=== PATIENT | male | born 1960 | race Caucasian/White ===

== ENCOUNTER 2016-03-03 10:50 | Inpatient (IN) | payer OTHER ==
--- NOTE | 2016-03-03 11:09 | ED ---
General Adult HPI - General Source: patient, family, RN notes reviewed Mode of arrival: ambulatory Limitations: no limitations <Jorge Dunlap - Last Filed: 03/03/16 13:36> <Pete Márquez - Last Filed: 03/03/16 14:01> - General Chief complaint: Upper Respiratory Infection Stated complaint: POSS PNEUMONIA Time Seen by Provider: 03/03/16 10:58 - History of Present Illness Initial comments: Patient a 55-year-old male with a past mental history, who presents emergency room today with a chief complaint of increased shortness of breath over the last month. He does admit that he had a upper respiratory infection around [facility]. States that he seemed to get over this infection but states that since she's noticed that he still having some episodes of shortness of breath. He states it's worse when he is up moving around. Patient states she still feels somewhat congested. He denies any other complaints or symptoms. Patient denies any recent fever, chills, chest pain, back pain, abdominal pain, nausea or vomiting, numbness or tingling, dysuria or hematuria, constipation or diarrhea, headaches or visual changes, or any other complaints. (Jorge Dunlap) - Related Data Home Medications Medication Instructions Recorded Confirmed Clotrimazole/Betameth Cream 1 applic TOPICAL DAILY PRN 03/03/16 03/03/16 [Lotrisone] Naproxen Sodium [Aleve] 220 mg PO BID PRN 03/03/16 03/03/16 Allergies Allergy/AdvReac Type Severity Reaction Status Date / Time No Known Allergies Allergy Verified 03/03/16 12:51 Review of Systems ROS Other: All systems not noted in ROS Statement are negative. <Jorge Dunlap - Last Filed: 03/03/16 13:36> ROS Other: All systems not noted in ROS Statement are negative. <Pete Márquez - Last Filed: 03/03/16 14:01> ROS Statement: Those systems with pertinent positive or pertinent negative responses have been documented in the HPI. Past Medical History History of Any Multi-Drug Resistant Organisms: None Reported Past Surgical History: No Surgical Hx Reported Past Psychological History: No Psychological Hx Reported Smoking Status: Never smoker Past Alcohol Use History: None Reported Past Drug Use History: None Reported <Jorge Dunlap - Last Filed: 03/03/16 13:36> General Exam Limitations: no limitations <DunlapJorge - Last Filed: 03/03/16 13:36> <Pete Márquez - Last Filed: 03/03/16 14:01> - General Exam Comments Initial Comments: General: The patient is awake and alert, in no distress, and does not appear acutely ill. Eye: Pupils are equal, round and reactive to light, extra-ocular movements are intact. No nystagmus. There is normal conjunctiva bilaterally. No signs of icterus. Ears, nose, mouth and throat: There are moist mucous membranes and no oral lesions. Neck: The neck is supple, there is no tenderness or JVD. Cardiovascular: Tachycardic rate. No murmur, rub or gallop is appreciated. Respiratory: Lungs are clear to auscultation, respirations are non-labored, breath sounds are equal. No wheezes, stridor, rales, or rhonchi. Musculoskeletal: Normal ROM, no tenderness. Strength 5/5. Sensation intact. Pulses equal bilaterally 2+. Neurological: A&O x 3. CN II-XII intact, There are no obvious motor or sensory deficits. Coordination appears grossly intact. Speech is normal. Skin: Skin is warm and dry and no rashes or lesions are noted. Psychiatric: Cooperative, appropriate mood & affect, normal judgment. (Jorge Dunlap) Course <Jorge Dunlap - Last Filed: 03/03/16 13:36> <WilliPete - Last Filed: 03/03/16 14:01> Vital Signs 03/03/16 03/03/16 03/03/16 10:53 11:15 11:56 Temperature 97.8 F Pulse Rate 63 141 H Pulse Rate [ 170 H Apical] Respiratory 18 18 Rate Blood Pressure 146/98 124/99 O2 Sat by Pulse 98 100 Oximetry 03/03/16 12:35 Temperature Pulse Rate 108 H Pulse Rate [ Apical] Respiratory 16 Rate Blood Pressure 124/99 O2 Sat by Pulse 98 Oximetry - Reevaluation(s) Reevaluation #1: 03/03/16 11:35 I did do a [id number] examination the patient did discuss the findings with him and his family. Patient is having some dyspnea since [place]. He did have some exertional dyspnea. His heart sounds currently are irregularly irregular and tachycardic. Abdomen is breath sounds. He's got +1 pedal edema. The presentation is consistent with atrial fibrillation. (Pete Márquez) Reevaluation #2: 03/03/16 13:59 I did reevaluate patient several occasions he is responding to therapy his heart rate has improved I did a long discussion with him and his family regarding the findings patient be admitted for inpatient evaluation with cardiology consultation. I did discuss the case with Dr. Escalante. (Pete Márquez) EKG Findings - EKG Results: EKG: interpreted by ERMD (Tachycardia rate was 166 it appears be atrial fibrillation with a rapid ventricular response QRS of 82 QT/QTC at 250/4:15 poor R-wave progression.) <Pete Márquez - Last Filed: 03/03/16 14:01> Medical Decision Making - Lab Data Result diagrams: 03/03/16 11:15 03/03/16 11:15 <Jorge Dunlap - Last Filed: 03/03/16 13:36> - Lab Data Result diagrams: 03/03/16 11:15 03/03/16 11:15 <Pete Márquez - Last Filed: 03/03/16 14:01> - Medical Decision Making Case was discussed and seen by attending physician Dr. Márquez. Patient started on heparin here in the emergency room. Patient EKG reveals A. fib with RVR. Started on Cardizem. Patient's d-dimer elevated. Mild elevation of troponin. Patient will have VQ scan. Patient will be admitted. Case was discussed by Dr. Márquez with admitting physician Dr. Escalante. Cardiology consult. (Jorge Dunlap) - Lab Data Lab Results 03/03/16 03/03/16 03/03/16 Range/Units 11:15 11:15 11:15 WBC 22.8 H (3.8-10.6) k/uL RBC 4.98 (4.30-5.90) m/uL Hgb 15.4 (13.0-17.5) gm/dL Hct 47.9 (39.0-53.0) % MCV 96.1 (80.0-100.0) fL MCH 30.9 (25.0-35.0) pg MCHC 32.1 (31.0-37.0) g/dL RDW 15.9 H (11.5-15.5) % Plt Count 917 H* (150-450) k/uL Neutrophils % (Manual) 89.0 % Band Neutrophils % 1.0 % Lymphocytes % (Manual) 4.0 % Monocytes % (Manual) 6.0 % Neutrophils # (Manual) 20.5 H (1.3-7.7) k/uL Lymphocytes # (Manual) 0.9 L (1.0-4.8) k/uL Monocytes # (Manual) 1.4 H (0-1.0) k/uL Nucleated RBCs 0 (0-0) /100 WBC Large Platelets Present Polychromasia Present Poikilocytosis (manual Present PT (9.0-12.0) sec INR (<1.1) APTT (22.0-30.0) sec D-Dimer (<0.60) mg/L FEU Sodium 138 (137-145) mmol/L Potassium 5.6 H (3.5-5.1) mmol/L Chloride 101 (98-107) mmol/L Carbon Dioxide 24 (22-30) mmol/L Anion Gap 13 mmol/L BUN 21 H (9-20) mg/dL Creatinine 1.37 H (0.66-1.25) mg/dL Est GFR (MDRD) Af Amer >60 (>60 ml/min/1.73 sqM) Est GFR (MDRD) Non-Af 54 (>60 ml/min/1.73 sqM) Glucose 120 H (74-99) mg/dL Calcium 10.0 (8.4-10.2) mg/dL Total Bilirubin 2.9 H (0.2-1.3) mg/dL AST 47 (17-59) U/L ALT 57 (21-72) U/L Alkaline Phosphatase 218 H (38-126) U/L Total Creatine Kinase 94 (55-170) U/L CK-MB (CK-2) 2.9 H* (0.0-2.4) ng/mL CK-MB (CK-2) Rel Index 3.1 Troponin I 0.069 H* (0.000-0.034) ng/mL Total Protein 7.0 (6.3-8.2) g/dL Albumin 4.3 (3.5-5.0) g/dL 03/03/16 Range/Units 11:15 WBC (3.8-10.6) k/uL RBC (4.30-5.90) m/uL Hgb (13.0-17.5) gm/dL Hct (39.0-53.0) % MCV (80.0-100.0) fL MCH (25.0-35.0) pg MCHC (31.0-37.0) g/dL RDW (11.5-15.5) % Plt Count (150-450) k/uL Neutrophils % (Manual) % Band Neutrophils % % Lymphocytes % (Manual) % Monocytes % (Manual) % Neutrophils # (Manual) (1.3-7.7) k/uL Lymphocytes # (Manual) (1.0-4.8) k/uL Monocytes # (Manual) (0-1.0) k/uL Nucleated RBCs (0-0) /100 WBC Large Platelets Polychromasia Poikilocytosis (manual PT 13.4 H (9.0-12.0) sec INR 1.4 (<1.1) APTT 26.0 (22.0-30.0) sec D-Dimer 1.88 H (<0.60) mg/L FEU Sodium (137-145) mmol/L Potassium (3.5-5.1) mmol/L Chloride (98-107) mmol/L Carbon Dioxide (22-30) mmol/L Anion Gap mmol/L BUN (9-20) mg/dL Creatinine (0.66-1.25) mg/dL Est GFR (MDRD) Af Amer (>60 ml/min/1.73 sqM) Est GFR (MDRD) Non-Af (>60 ml/min/1.73 sqM) Glucose (74-99) mg/dL Calcium (8.4-10.2) mg/dL Total Bilirubin (0.2-1.3) mg/dL AST (17-59) U/L ALT (21-72) U/L Alkaline Phosphatase (38-126) U/L Total Creatine Kinase (55-170) U/L CK-MB (CK-2) (0.0-2.4) ng/mL CK-MB (CK-2) Rel Index Troponin I (0.000-0.034) ng/mL Total Protein (6.3-8.2) g/dL Albumin (3.5-5.0) g/dL Critical Care Time <Jorge Dunlap - Last Filed: 03/03/16 13:36> Critical Care Time: Yes <Pete Márquez - Last Filed: 03/03/16 14:01> Critical Care Time: 31 minutes of critical care time which included my initial evaluation with history physical examination also reevaluation the patient response to therapy. Discussion with the patient and family as well as discussion with the admitting physician. (Pete Márquez) Disposition Time of Disposition: 13:38 <Jorge Dunlap - Last Filed: 03/03/16 13:36> <Pete Márquez - Last Filed: 03/03/16 14:01> Clinical Impression: Atrial fibrillation with RVR, Elevated d-dimer, Elevated troponin, Leukocytosis , Thrombocytosis Disposition: ADMITTED IP TO THIS HOSP Condition: Stable
[2016-03-03] MEDS ORDERED: ADENOSINE 3 MG/ML 2 ML VIAL IVP STA (11:28)
[2016-03-03] MEDS ORDERED: DILTIAZEM 125 MG in SODIUM CHLORIDE 0.9% 100 ML IV ONE (11:34)
[2016-03-03] MEDS ORDERED: HEPARIN SODIUM,PORCINE 5,000 UNIT/ML 1 ML VIAL IV ONE (11:38)
[2016-03-03 11:43] LABS: CH 31.5; CHCM 33.1; HCT 47.9 % (39.0-53.0); HDW 2.99; HGB 15.4 gm/dL (13.0-17.5); MCH 30.9 pg (25.0-35.0); MCHC 32.1 g/dL (31.0-37.0); MCV 96.1 fL (80.0-100.0); Mean Platelet Volume 9.8; RBC 4.98 m/uL (4.30-5.90); RDW 15.9 % (11.5-15.5); WBC 22.8 k/uL (3.8-10.6); WBC (Perox) 24.51
[2016-03-03 11:46] LABS: ALT 57 U/L (21-72); AST 47 U/L (17-59); Alkaline Phosphatase 218 U/L (38-126); Anion Gap 13 mmol/L; Blood Urea Nitrogen 21 mg/dL (9-20); Carbon Dioxide 24 mmol/L (22-30); Chloride 101 mmol/L (98-107); Glucose 120 mg/dL (74-99); Non-African American GFR(MDRD) 54 (>60 ml/min/1.73 sqM); Potassium 5.6 mmol/L (3.5-5.1); Sodium 138 mmol/L (137-145); Total Bilirubin 2.9 mg/dL (0.2-1.3)
[2016-03-03] MEDS: HEPARIN SODIUM,PORCINE/D5W PMX 25,000 UNIT in DEXTROSE/WATER 1 500ML.BAG IV SCH (11:52)
--- NOTE | 2016-03-03 11:53 | XR ---
EXAMINATION TYPE: XR chest 2V DATE OF EXAM: 03/03/2016 11:49 AM COMPARISON: Prior chest x-ray third of January 2013 HISTORY: Cough and shortness of breath TECHNIQUE: Frontal and lateral views of the chest are obtained. FINDINGS: There are overlying cardiac leads. Cardiomediastinal silhouette shows mild prominence of t he heart size, pulmonary vascularity is mildly prominent and [place] not significantly changed. No foca l pneumonia or pneumothorax. Some blunting of the costophrenic angles is present. Interstitium is mil dly increased. IMPRESSION: Correlate for possible pulmonary venous hypertension and interstitial edema. Small pleur al effusions. Follow-up recommended.
[2016-03-03 11:57] LABS: INR 1.4 (<1.1); Prothrombin Time 13.4 sec (9.0-12.0)
[2016-03-03 12:17] LABS: Add Differential Manual Differential
[2016-03-03 12:23] LABS: Nucleated Red Blood Cells 0 /100 WBC (0-0); Total Cells Counted 100
[2016-03-03 12:24] LABS: Large Platelets Present; Polychromasia Present
[2016-03-03 12:34] LABS: Creatine Kinase MB 2.9 ng/mL (0.0-2.4)
[2016-03-03 12:35] LABS: Troponin I 0.069 ng/mL (0.000-0.034)
[2016-03-03] MEDS ORDERED: ACETAMINOPHEN TAB 325 MG TAB PO PRN (13:15)
[2016-03-03] MEDS ORDERED: HYDROcodone/APAP 5-325MG 1 EACH TAB PO PRN (13:15)
[2016-03-03] MEDS ORDERED: LORazepam 2 MG/ML SYRINGE IV PRN (13:15)
[2016-03-03] MEDS ORDERED: ONDANSETRON 4 MG/2 ML VIAL IVP PRN (13:15)
[2016-03-03] MEDS ORDERED: NALOXONE 0.4 MG/ML 1 ML VIAL IV PRN (13:15)
[2016-03-03] MEDS ORDERED: SODIUM CHLORIDE 0.9% 1,000 ML IV ONE (13:15)
[2016-03-03] MEDS ORDERED: HYDROmorphone 2 MG TAB PO PRN (13:15)
--- NOTE | 2016-03-03 15:03 | NM ---
EXAMINATION TYPE: NM pul vent and perfuse DATE OF EXAM: 03/03/2016 2:05 PM COMPARISON: Chest x-ray same date HISTORY: Shortness of breath TECHNIQUE: Utilizing inhalation of 69.7 mCi Tc 99m DTPA aerosol and intravenous injection of 5.5 mCi of Tc 99m MAA, ventilation and perfusion images are acquired post injection in multiple projections. FINDINGS: Essentially normal radiotracer distribution is noted in the lungs. Suspect minimal blunting of the po sterior costophrenic angles corresponding to pleural effusions. There is no evidence of mismatched de fects. IMPRESSION: Low probability for pulmonary embolism.
[2016-03-03] MEDS: METOPROLOL TARTRATE 25 MG TAB PO SCH ×2 (17:59→18:00)
[2016-03-03] MEDS: FUROSEMIDE 10 MG/ML 4 ML VIAL IV SCH (17:59)
--- NOTE | 2016-03-03 20:55 | HP ---
DATE OF ADMISSION: Patient is a very pleasant 55-year-old gentleman with no significant previous history. He came in with symptoms of generalized fatigue and shortness of breath. Patient was found to be in supraventricular tachycardia. Patient was given adenosine. Patient subsequently converted to atrial fibrillation with rapid ventricular rate. Patient was started Cardizem and patient was subsequently admitted. Patient did complain of shortness of breath that has been going on for about a month with significant orthopnea. PND was slowly progressing without any pedal edema. Since ving, the patient was having flulike symptoms ( ) symptoms, and patient appears to have nasal congestion at this point of time. Patient was having dry cough. Denied any fever or chills. Chest x-ray is consistent with pulmonary edema. Patient does have elevated JVD. I ordered a BNP, which is definitely elevated. Patient's D-dimer is elevated, because of which patient had a pulmonary ventilation/perfusion scan, which is low probability for pulmonary embolism. Patient is significantly tachycardic with mildly elevated troponins. Will obtain repeat troponins. Patient denied any chest pain at this point of time. Patient never had any heart attacks. On patient's EKG I cannot really assess ST-T wave changes because of the fast heart rate. Patient is presently in atrial fibrillation with rapid ventricular rate. 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 Echocardiogram was ordered and patient will be started on metoprolol oral. Cardiology was consulted. Patient appears to have an S3 as well on clinical exam. No other murmurs were appreciated on the cardiac exam. Patient has an irregularly irregular rhythm on exam. REVIEW OF SYSTEMS: CONSTITUTIONAL: No fever, no malaise, no fatigue. HEENT: No recent visual problems or hearing problems. Denied any sore throat. CARDIOVASCULAR: As described in HPI. PULMONARY: As described in HPI. GASTROINTESTINAL: No diarrhea, no nausea, no vomiting, no abdominal pain. Normoactive bowel sounds. NEUROLOGICAL: No headaches, no weakness, no numbness. HEMATOLOGICAL: Denies any bleeding or petechiae. GENITOURINARY: Denies any burning micturition, frequency, or urgency. MUSCULOSKELETAL/RHEUMATOLOGICAL: Denies any joint pain, swelling, or any muscle pain. ENDOCRINE: Denies any polyuria or polydipsia. The rest of the 14 point review of systems is negative. Patient was having vague pressure-like sensation in the back of the neck and the jaw and exertional dyspnea. Past medical history is significant for: 1. Gastroesophageal reflux disease. 2. Hyperlipidemia. 3. Walking pneumonia in the past. Patient thought he has walking pneumonia. 4. Colonoscopy. 5. Polypectomy in the past. FAMILY HISTORY: Breast and bone cancer. Will also do influenza testing on him. PHYSICAL EXAMINATION: VITAL SIGNS: Temperature 97.8, pulse of 99, respiratory rate of 18. Blood pressure is 119/62. Saturating at 98% on 2 L of oxygen by nasal cannula. GENERAL: The patient is alert and oriented x3, not in any acute distress. Well developed, well nourished. HEENT: Pupils are round and equally reacting to light. EOMI. No scleral icterus. No conjunctival pallor. Normocephalic, atraumatic. No pharyngeal erythema. No thyromegaly. CARDIOVASCULAR: As described in HPI itself. PULMONARY: Chest is clear to auscultation, no wheezing or crackles. ABDOMEN: Soft, nontender, nondistended, normoactive bowel sounds. No palpable organomegaly. MUSCULOSKELETAL: No joint swelling or deformity. EXTREMITIES: No cyanosis, clubbing, or pedal edema. NEUROLOGICAL: Gross neurological examination did not reveal any focal deficits. SKIN: No rashes. LABORATORY DATA: CBC, CMP are abnormal for elevated WBC count of 22,200. Patient has significant neutrophilic leukocytosis with neutrophilic and monocytic predominance. D-dimer is 1.88. Potassium is 5.8. BUN of 21, creatinine 1.37. I do not have his baseline creatinine. First troponin is 0.069 and BNP is 11,100. ASSESSMENT AND PLAN: 1. Supraventricular tachycardia followed by atrial fibrillation with rapid ventricular rate. Patient will be switched to oral metoprolol. Patient will be continued on IV heparin. Cardiology will be consulted. 2. Congestive heart failure. Possibility of systolic dysfunction; appears to be chronic with acute exacerbation. Patient will be started on IV Lasix. 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 I will also obtain influenza testing. 3. Leukocytosis; appears to be reactive response. Will repeat the test again. 4. Acute renal failure versus chronic kidney disease. I cannot stage it at this point of time. Acute renal failure is probably related to cardiomyopathy and is expected to improve with IV Lasix. 5. Mild hyperkalemia secondary to renal dysfunction. Will see if that improves with treatment of heart failure. 6. Mildly elevated troponins secondary to tachycardia and supraventricular tachycardia. 7. Viral upper respiratory infection. 8. Gastroesophageal reflux disease. 9. Hyperlipidemia. Patient will be started on 40 mg IV b.i.d. of Lasix. Will recheck his electrolytes, I&O, and see if he has any symptomatic improvement. Ordered an echocardiogram.
[2016-03-04] MEDS ORDERED: HEPARIN SODIUM,PORCINE 5,000 UNIT/ML 1 ML VIAL IV PRN (01:50)
[2016-03-04 03:36] LABS: Cholesterol 122 mg/dL (<200); HDL Cholesterol 33 mg/dL (40-60); Triglycerides 76 mg/dL (<150)
[2016-03-04] MEDS: METOPROLOL TARTRATE 25 MG TAB PO SCH (08:47)
[2016-03-04] MEDS: HEPARIN SODIUM,PORCINE/D5W PMX 25,000 UNIT in DEXTROSE/WATER 1 500ML.BAG IV SCH (08:47)
[2016-03-04] MEDS: FUROSEMIDE 10 MG/ML 4 ML VIAL IV SCH ×2 (08:47→19:51)
[2016-03-04] MEDS ORDERED: INFLUENZA VACCINE (3YR+) 60 MCG/0.5 ML SYRINGE IM ONE (09:00)
--- NOTE | 2016-03-04 09:43 | P.CRDCN ---
History of Present Illness Consult date: 03/04/16 Chief complaint: Shortness of breath History of present illness: This is a pleasant 55-year-old gentleman with no significant past medical history presented to the hospital complaining of shortness of breath. The patient describes progressive exertional dyspnea started about 3-4 weeks ago Beside that he describes orthopnea. He did not have any edema in the lower extremities. He denies having any chest pain or chest discomfort but he describes discomfort in the upper back and the back of the neck as well as. The patient was diagnosed with congestive heart failure exacerbation. The chest x-ray showed findings consistent with CHF. The BNP came in to be around 11,000s. The cardiac enzymes came in to be slightly abnormal as well. The EKG showed A. fib with RVR with what it seems to be diffuse nonspecific ST and T wave abnormalities. The patient was started on Lasix IV. Beside that he was started on heparin IV. Initially he was started on Cardizem IV then the Cardizem IV was stopped and he is currently on metoprolol by mouth. I recommended increasing the dose of metoprolol 50 mg by mouth twice a day. I will continue anticoagulation with heparin. I will obtain an echocardiogram was Doppler. I will continue the Lasix IV. The patient definitely need to be ruled out for severe underlying coronary artery disease in view of the discomfort he was describing in the upper back and the back of the neck and also the underlying non-specific ST and T wave abnormalities on the ECG. 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 PAST CONTACT DERMATITIS . MONO TEENAGER,HEMORRHOIDS, LACTOSE INTOLERANCE(CAUSES DIARRHEA) , VERTIGO FEW YEARS AGO, BRONCHITIS, HIATAL HERNIA, ULCER IN THE . IRREG HEAT BEAT 1998 WORE A HALTER MONITOR BUT IT DID'NT REVEAL ANYTHING. History of Any Multi-Drug Resistant Organisms: None Reported Past Surgical History: No Surgical Hx Reported Additional Past Surgical History / Comment(s): COONOSCOPY/POLYPECTOMY(BENIGN), X3 EYE SX , JAW SX 1973, HIATAL HERNIA SX Past Anesthesia/Blood Transfusion Reactions: No Reported Reaction Past Psychological History: No Psychological Hx Reported Smoking Status: Never smoker Past Alcohol Use History: Occasional Past Drug Use History: None Reported - Past Family History Mother Family Medical History: Cancer Additional Family Medical History / Comment(s): BREAST/BONE CANCER. AUNT ALSO HAS BONE CANCER Father Family Medical History: CVA/TIA Additional Family Medical History / Comment(s): CABG Medications and Allergies Home Medications Medication Instructions Recorded Confirmed Type Clotrimazole/Betameth Cream 1 applic TOPICAL DAILY PRN 03/03/16 03/03/16 History [Lotrisone] Naproxen Sodium [Aleve] 220 mg PO BID PRN 03/03/16 03/03/16 History Allergies Allergy/AdvReac Type Severity Reaction Status Date / Time aspirin AdvReac Unknown Verified 03/03/16 20:10 Physical Exam Vitals: Vital Signs Temp Pulse Pulse Pulse Resp BP BP 03/04/16 08:00 97.9 F 112 H 113/79 03/04/16 04:00 98.1 F 116 H 18 122/78 03/04/16 00:00 98.4 F 106 H 18 107/72 03/03/16 20:00 98.1 F 118 H 18 110/81 03/03/16 16:00 101 H 18 03/03/16 15:45 97.8 F 101 H 18 123/92 03/03/16 14:15 97.9 F 99 18 119/62 Pulse Ox 03/04/16 08:00 96 03/04/16 04:00 96 03/04/16 00:00 97 03/03/16 20:00 97 03/03/16 16:00 03/03/16 15:45 98 03/03/16 14:15 98 Intake and Output 03/03/16 03/04/16 03/04/16 22:59 06:59 14:59 Intake Total 119.733 164.259 186.784 Output Total 550 4200 Balance -430.267 -4035.741 186.784 Intake: Intake, IV Titration 119.733 164.259 186.784 Amount Heparin Sodium,Porcine/ 119.733 164.259 186.784 D5w Pmx 25,000 unit In Dextrose/Water 1 500ml. bag @ 12 UNITS/KG/HR 17. 96 mls/hr IV .Q24H [facility] Rx #:[id number] Output: Urine 550 4200 Other: Voiding Method Toilet Toilet # Voids 3 Weight 83.2 kg - Constitutional General appearance: no acute distress - Respiratory Respiratory: right: diminished, left: CTA - Cardiovascular Rhythm: regular Heart sounds: normal: S1, S2 Results 03/03/16 11:15 03/04/16 00:42 Cardiac Enzymes 03/03/16 03/04/16 Range/Units 17:49 00:14 Troponin I 0.063 H* 0.065 H* (0.000-0.034) ng/mL Coagulation 03/03/16 03/04/16 03/04/16 Range/Units 17:49 00:14 08:13 APTT 31.4 H 31.6 H 46.0 H (22.0-30.0) sec Lipids 03/04/16 Range/Units 00:42 Triglycerides 76 (<150) mg/dL Cholesterol 122 (<200) mg/dL HDL Cholesterol 33 L (40-60) mg/dL Comprehensive Metabolic Panel 03/04/16 Range/Units 00:42 Potassium 4.1 (3.5-5.1) mmol/L Current Medications Generic Name Dose Route Start Last Admin Trade Name Freq PRN Reason Stop Dose Admin Acetaminophen 650 mg 03/03/16 13:15 Tylenol Tab PO Q6HR PRN Mild Pain or Fever > 100.5 Acetaminophen/Hydrocodone Bitart 1 each 03/03/16 13:15 [place] 5-325 PO Q4HR PRN Moderate Pain Furosemide 40 mg 03/03/16 18:00 03/04/16 08:47 Lasix IV 40 mg Q12HR JOSAFAT Administration Heparin Sodium (Porcine) 0 unit 03/04/16 01:50 03/04/16 01:53 Heparin IV 3,700 unit PER PROTOCOL PRN Administration Low PTT Protocol Heparin Sodium/Dextrose 25,000 500 mls @ 17.96 mls/hr 03/03/16 11:45 08:47 unit/ IV Solution IV 18 units/kg/hr .Q24H JOSAFAT 26.94 mls/hr Protocol Administration 12 UNITS/KG/HR Lorazepam 0.5 mg 03/03/16 13:15 Ativan IV Q6HR PRN Anxiety Naloxone HCl 0.2 mg 03/03/16 13:15 Narcan IV Q2M PRN Opioid Reversal Ondansetron HCl 4 mg 03/03/16 13:15 Zofran IVP Q8HR PRN Nausea And Vomiting Intake and Output 03/03/16 03/04/16 03/04/16 22:59 06:59 14:59 Intake Total 119.733 164.259 186.784 Output Total 550 4200 Balance -430.267 -4035.741 186.784 Intake: Intake, IV Titration 119.733 164.259 186.784 Amount Heparin Sodium,Porcine/ 119.733 164.259 186.784 D5w Pmx 25,000 unit In Dextrose/Water 1 500ml. bag @ 12 UNITS/KG/HR 17. 96 mls/hr IV .Q24H [facility] Rx #:[id number] Output: Urine 550 4200 Other: Voiding Method Toilet Toilet # Voids 3 Weight 83.2 kg 03/04/16 00:42 Assessment and Plan Plan: Assessment #1 congestive heart failure exacerbation and known if it's due to systolic or diastole dysfunction #2 atrial fibrillation with RVR #3 abnormal baseline EKG Plan #1 increase the dose of metoprolol to 50 mg by mouth twice a day #2 continue the Lasix IV #3 continue the heparin IV #4 obtain an echocardiogram was Doppler #5 continue monitoring her kidney function and electrolytes #6 follow-up with the patient
[2016-03-04] MEDS ORDERED: METOPROLOL TARTRATE 25 MG TAB PO ONE (09:45)
--- NOTE | 2016-03-04 13:43 | PN ---
Patient is a 55-year-old gentleman admitted for SVT followed by atrial fibrillation with rapid ventricular rate. The patient's rate is still high a bit. Patient's metoprolol dose was increased by Cardiology. Patient also has congestive heart failure. Echocardiogram results are pending. REVIEW OF SYSTEMS: CARDIOVASCULAR: No chest pain, no orthopnea, no PND, no palpitations. PULMONARY: Improved shortness of breath. The patient still feels short of breath and fatigued. GASTROINTESTINAL: No diarrhea, nausea or vomiting. No abdominal pain. Normoactive bowel sounds. NEUROLOGIC: No headaches, no weakness, no numbness. Medications were reviewed and medication changes as mentioned in the interval history. PHYSICAL EXAMINATION: VITAL SIGNS: Temperature 97.9, pulse of 115, respiratory rate of ( ), saturating at 96% on 2 liters of O2 by nasal cannula. GENERAL: The patient is alert and oriented x3, not in any acute distress. Well developed, well nourished. HEENT: Pupils are round and equally reacting to light. EOMI. No scleral icterus. No conjunctival pallor. Normocephalic, atraumatic. No pharyngeal erythema. No thyromegaly. CARDIOVASCULAR: S1, S2 present. Patient does have minimally elevated JVD and does have S3 as well and there is no significant pedal edema. PULMONARY: Chest is clear to auscultation, no wheezing or crackles. ABDOMEN: Soft, nontender, nondistended, normoactive bowel sounds. No palpable organomegaly. MUSCULOSKELETAL: No joint swelling or deformity. EXTREMITIES: No cyanosis, clubbing, or pedal edema. NEUROLOGICAL: Gross neurological examination did not reveal any focal deficits. SKIN: No rashes. LABORATORY DATA: No new lab data is available today since yesterday. We will try and get a basic metabolic profile for today and repeat tomorrow. ASSESSMENT AND PLAN: 1. Supraventricular tachycardia for atrial fibrillation with rapid ventricular rate. Management as mentioned above. Continue with IV heparin. 2. Congestive heart failure, possibly systolic dysfunction with acute exacerbation. 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 3. Leukocytosis, appears to be reactive response. Will repeat again tomorrow. 4. Acute renal failure versus chronic kidney disease. Unable to stage at this point of time. Acute renal failure is probably related to prerenal azotemia from cardiomyopathy and congestive heart failure exacerbation. 5. Mild hyperkalemia, which resolved at this point of time. 6. Gastroesophageal reflux disease. 7. Hyperlipidemia. 8. Recent upper respiratory tract infection, which is continued and he still has now. Plan is to continue Lasix, I's and O's and monitor kidney function. Troponins are minimally elevated, but stable at 0.06. This is secondary to atrial fibrillation.
--- NOTE | 2016-03-04 15:12 | ECHOF ---
Referral Reason:A. fib MEASUREMENTS -------- HEIGHT: 182.9 cm WEIGHT: 83.0 kg BP: IVSd: 1.0 cm (0.6 - 1.1) LVIDd: 5.2 cm (3.9 - 5.3) LVPWd: 1.4 cm (0.6 - 1.1) IVSs: 1.0 cm LVIDs: 5.0 cm LVPWs: 1.2 cm LA Diam: 4.4 cm (2.7 - 3.8) LAESV Index (A-L): 43.91 ml/m Ao Diam: 3.9 cm (2.0 - 3.7) AV Cusp: 2.1 cm (1.5 - 2.6) LA Diam: 5.2 cm (2.7 - 3.8) MV EXCURSION: 20.607 mm (> 18.000) MV EF SLOPE: 183 mm/s (70 - 150) EPSS: 0.5 cm AR PHT: 352 ms RAP: 5.00 mmHg RVSP: 24.21 mmHg FINDINGS -------- Atrial fibrillation. This was a technically good study. Left ventricular wall thickness is normal. Overall left ventricular systolic function is severely impaired with, an EF between 20 - 25 %. The right ventricle is normal in size. LA is moderately dilated 34-39 ml/m2 The right atrium is moderately enlarged. There is mild aortic valve sclerosis. There is mild aortic regurgitation. Mild mitral annular calcification present. Mild mitral regurgitation is present. Mild tricuspid regurgitation present. There is no evidence of pulmonary hypertension. The right ventricular systolic pressure, as measured by Doppler, is 24.21mmHg. There is no pulmonic regurgitation present. Small Pericardial Effusion with possible small thrombosis in effusion. CONCLUSIONS -------- 1. Left ventricular wall thickness is normal. 2. There is no evidence of pulmonary hypertension. 3. The right ventricular systolic pressure, as measured by Doppler, is 24.21mmHg. 4. There is no pulmonic regurgitation present. 5. Small Pericardial Effusion with possible small thrombosis in effusion. 6. Overall left ventricular systolic function is severely impaired with, an EF between 20 - 25 %. 7. LA is moderately dilated 34-39 ml/m2 8. The right atrium is moderately enlarged. 9. There is mild aortic valve sclerosis. 10. There is mild aortic regurgitation. 11. Mild mitral annular calcification present. 12. Mild mitral regurgitation is present. 13. Mild tricuspid regurgitation present. [employer]: Katty De La Vega RDCS
[2016-03-04] MEDS: METOPROLOL TARTRATE 50 MG TAB PO SCH (19:51)
[2016-03-05] MEDS: HEPARIN SODIUM,PORCINE/D5W PMX 25,000 UNIT in DEXTROSE/WATER 1 500ML.BAG IV SCH (05:06)
[2016-03-05 07:00] LABS: Anion Gap 10 mmol/L; Blood Urea Nitrogen 19 mg/dL (9-20); Calcium 9.3 mg/dL (8.4-10.2); Carbon Dioxide 30 mmol/L (22-30); Chloride 99 mmol/L (98-107); Glucose 91 mg/dL (74-99); Non-African American GFR(MDRD) >60 (>60 ml/min/1.73 sqM); Potassium 4.8 mmol/L (3.5-5.1); Sodium 139 mmol/L (137-145)
[2016-03-05 07:01] LABS: Basophils # (A) 0.1 k/uL (0-0.2); Basophils % (A) 1 %; CH 31.3; CHCM 32.6; Eosinophils # (A) 0.3 k/uL (0-0.7); Eosinophils % (A) 2 %; HCT 43.6 % (39.0-53.0); HDW 2.98; HGB 13.8 gm/dL (13.0-17.5); Luc # (Auto) 0.35; Luc % (Auto) 2; Lymphocytes # (A) 2.2 k/uL (1.0-4.8); Lymphocytes % (A) 13 %; MCH 30.5 pg (25.0-35.0); MCHC 31.6 g/dL (31.0-37.0); MCV 96.6 fL (80.0-100.0); Mean Platelet Volume 8.1; Monocytes # (A) 0.8 k/uL (0-1.0); Monocytes % (A) 4 %; Neutrophils # (A) 13.2 k/uL (1.3-7.7); Neutrophils % (A) 78 %; RBC 4.52 m/uL (4.30-5.90); RDW 15.8 % (11.5-15.5); WBC 16.9 k/uL (3.8-10.6); WBC (Perox) 17.99
[2016-03-05] MEDS: FUROSEMIDE 10 MG/ML 4 ML VIAL IV SCH ×2 (08:55→21:18)
[2016-03-05] MEDS: METOPROLOL TARTRATE 50 MG TAB PO SCH ×2 (08:56→21:18)
[2016-03-05] MEDS ORDERED: CLOTRIMAZOLE/BETAMETH 1-0.05% CREAM 45 GM TUBE TOPICAL PRN (12:52)
--- NOTE | 2016-03-05 13:35 | P.PN ---
Subjective Principal diagnosis: CHF/cardiomyopathy This is a pleasant 55-year-old gentleman with no significant past medical history presented to the hospital complaining of shortness of breath. The patient describes progressive exertional dyspnea started about 3-4 weeks ago Beside that he describes orthopnea. He did not have any edema in the lower extremities. He denies having any chest pain or chest discomfort but he describes discomfort in the upper back and the back of the neck as well as. The patient was diagnosed with congestive heart failure exacerbation. The chest x-ray showed findings consistent with CHF. The BNP came in to be around 11,000s. The cardiac enzymes came in to be slightly abnormal as well. The EKG showed A. fib with RVR with what it seems to be diffuse nonspecific ST and T wave abnormalities. I'll follow-up with the patient today, he is feeling better into of shortness of breath. The exertional dyspnea and orthopnea are better. Continues to denies having any chest pain or chest discomfort. He never had any bilateral lower extremities edema to start with. He underwent an echocardiogram which showed severity cardiomyopathy with an ejection fraction of 25% with global hypokinesia and evidence of hypertensive heart disease as well as evidence of small pericardial effusion. I had a discussion with the patient and his regarding the finding of the echo. Also I recommended proceeding with heart catheterization once he is euvolemic. For the time being, I would continue diuresing the patient since I still can hear crackles in the right lung base. Also I would continue the metoprolol by mouth. The heart rate continues to be around 100 and he continues to be in atrial fibrillation. I would add lisinopril to the current medical treatment and also I would add on aldactone. Also I am going to DC the heparin and start the patient on oral anticoagulation. Objective - Vital Signs Vital signs: Vital Signs Temp 97.0 F L 03/05/16 08:00 Pulse 105 H 03/05/16 08:00 Resp 18 03/05/16 04:00 BP 109/75 03/05/16 08:00 Pulse Ox 97 03/05/16 08:00 Intake & Output 03/04/16 03/05/16 03/05/16 18:59 06:59 18:59 Intake Total 396.784 500 360 Output Total 250 2850 600 Balance 146.784 -2350 -240 Weight 81.4 kg Intake: Intake, IV Titration 186.784 500 Amount Heparin Sodium,Porcine/ 186.784 500 D5w Pmx 25,000 unit In Dextrose/Water 1 500ml. bag @ 12 UNITS/KG/HR 17. 96 mls/hr IV .Q24H [facility] Rx #:[id number] Oral 210 360 Output: Urine 250 2850 600 Other: Voiding Method Toilet # Voids 3 - Constitutional General appearance: Present: no acute distress - Respiratory Respiratory: right: rales, left: CTA - Cardiovascular Rhythm: irregularly irregular Heart sounds: normal: S1, S2 - Labs CBC & Chem 7: 03/05/16 06:07 03/05/16 06:07 Labs: Abnormal Lab Results - Last 24 Hours (Table) 03/05/16 03/05/16 Range/Units 06:07 09:29 WBC 16.9 H (3.8-10.6) k/uL RDW 15.8 H (11.5-15.5) % Plt Count 850 H* (150-450) k/uL Neutrophils # 13.2 H (1.3-7.7) k/uL APTT 35.7 H (22.0-30.0) sec Assessment and Plan Plan: Assessment #1 congestive heart failure exacerbation secondary to systolic dysfunction #2 atrial fibrillation with relatively controlled heart rate #3 severity cardiomyopathy and known if is ischemic or nonischemic Plan #1 continue diuresing the patient using Lasix #2 continue monitoring the kidney function and electrolytes #3 continue the metoprolol for heart rate control #4 add Eliquis to the current medical treatment and DC the heparin #5 add lisinopril #6 add aldactone #7 follow-up with the patient
[2016-03-05] MEDS: APIXABAN 5 MG TAB PO SCH (21:18)
[2016-03-06 06:44] LABS: Basophils # (A) 0.1 k/uL (0-0.2); Basophils % (A) 1 %; CH 31.6; CHCM 33.1; Eosinophils # (A) 0.3 k/uL (0-0.7); Eosinophils % (A) 2 %; HCT 45.5 % (39.0-53.0); HDW 3.08; HGB 14.3 gm/dL (13.0-17.5); Luc # (Auto) 0.21; Luc % (Auto) 1; Lymphocytes # (A) 1.9 k/uL (1.0-4.8); Lymphocytes % (A) 12 %; MCH 30.2 pg (25.0-35.0); MCHC 31.4 g/dL (31.0-37.0); MCV 96.1 fL (80.0-100.0); Mean Platelet Volume 8.9; Monocytes # (A) 0.7 k/uL (0-1.0); Monocytes % (A) 4 %; Neutrophils # (A) 12.8 k/uL (1.3-7.7); Neutrophils % (A) 80 %; RBC 4.73 m/uL (4.30-5.90); RDW 15.9 % (11.5-15.5); WBC 15.9 k/uL (3.8-10.6); WBC (Perox) 15.87
[2016-03-06 06:58] LABS: Anion Gap 11 mmol/L; Blood Urea Nitrogen 16 mg/dL (9-20); Calcium 9.6 mg/dL (8.4-10.2); Carbon Dioxide 31 mmol/L (22-30); Chloride 98 mmol/L (98-107); Glucose 93 mg/dL (74-99); Non-African American GFR(MDRD) >60 (>60 ml/min/1.73 sqM); Potassium 4.9 mmol/L (3.5-5.1); Sodium 140 mmol/L (137-145)
[2016-03-06] MEDS: APIXABAN 5 MG TAB PO SCH (08:32)
[2016-03-06] MEDS: METOPROLOL TARTRATE 50 MG TAB PO SCH ×3 (08:32→21:27)
[2016-03-06] MEDS: FUROSEMIDE 10 MG/ML 4 ML VIAL IV SCH (08:32)
[2016-03-06] MEDS: LISINOPRIL 2.5 MG TAB PO SCH (08:33)
[2016-03-06] MEDS: SPIRONOLACTONE 25 MG TAB PO SCH (08:33)
--- NOTE | 2016-03-06 10:46 | P.PN ---
Subjective Principal diagnosis: CHF/cardiomyopathy This is a pleasant 55-year-old gentleman with no significant past medical history presented to the hospital complaining of shortness of breath. The patient describes progressive exertional dyspnea started about 3-4 weeks ago Beside that he describes orthopnea. He did not have any edema in the lower extremities. He denies having any chest pain or chest discomfort but he describes discomfort in the upper back and the back of the neck as well as. The patient was diagnosed with congestive heart failure exacerbation. The chest x-ray showed findings consistent with CHF. The BNP came in to be around 11,000s. The cardiac enzymes came in to be slightly abnormal as well. The EKG showed A. fib with RVR with what it seems to be diffuse nonspecific ST and T wave abnormalities. He underwent an echocardiogram which showed severity cardiomyopathy with an ejection fraction of 25% with global hypokinesia and evidence of hypertensive heart disease as well as evidence of small pericardial effusion. I commented continue the current medical treatment with decreasing the dose of Lasix in to 40 mg IV daily in view of the marginally low blood pressure, increase the dose of metoprolol into 50 mg by mouth 3 times a day for better blood pressure control, stop the anticoagulation with Eliquis, and proceed with heart catheterization tomorrow Objective - Vital Signs Vital signs: Vital Signs Temp 96.9 F L 03/06/16 08:00 Pulse 113 H 03/06/16 08:00 Resp 18 03/06/16 08:00 BP 111/71 03/06/16 08:00 Pulse Ox 94 L 03/06/16 08:00 Intake & Output 03/05/16 03/06/16 03/06/16 18:59 06:59 18:59 Intake Total 840 240 360 Output Total 1200 3000 Balance -360 -2760 360 Weight 78.7 kg Intake: Oral 840 240 360 Output: Urine 1200 3000 Other: Voiding Method Toilet Toilet # Voids 1 - Constitutional General appearance: Present: no acute distress - Respiratory Respiratory: bilateral: CTA - Cardiovascular Rhythm: irregularly irregular - Labs CBC & Chem 7: 03/06/16 06:25 03/06/16 06:25 Labs: Abnormal Lab Results - Last 24 Hours (Table) 03/06/16 03/06/16 Range/Units 06:25 06:25 WBC 15.9 H (3.8-10.6) k/uL RDW 15.9 H (11.5-15.5) % Plt Count 871 H* (150-450) k/uL Neutrophils # 12.8 H (1.3-7.7) k/uL Carbon Dioxide 31 H (22-30) mmol/L Assessment and Plan Plan: Assessment #1 congestive heart failure exacerbation secondary to systolic dysfunction #2 atrial fibrillation with relatively controlled heart rate #3 severity cardiomyopathy and known if is ischemic or nonischemic #4 systemic hypertension Plan #1 continue diuresing the patient using Lasix with decreasing the dose as described above #2 continue monitoring the kidney function and electrolytes #3 continue the metoprolol for heart rate control with increasing the dose for better heart rate control #4 DC Eliquis #5 follow-up with the patient
--- NOTE | 2016-03-06 11:28 | PN ---
Patient is admitted for SVT, followed by atrial fibrillation with rapid ventricular rate. Patient is found to be ( ) and ejection fraction of around 15% to 20% and patient's symptoms of heart failure have significantly improved. Respiratory shortness of breath has improved and patient does not have any vomiting or abdominal pain. Patient ( ) viral cardiomyopathy. REVIEW OF SYSTEMS: CARDIOVASCULAR: No chest pain, no orthopnea, no PND, no palpitations. PULMONARY: As mentioned in the interval history. GASTROINTESTINAL: No diarrhea, nausea or vomiting. No abdominal pain. Normoactive bowel sounds. NEUROLOGIC: No headaches, no weakness, no numbness. Medications were reviewed. Patient will be continued on IV Lasix. PHYSICAL EXAMINATION: VITAL SIGNS: Temperature 97.0, pulse of 96, respiratory rate of 18, blood pressure is 104/69, saturating at 96% on 2 L of O2 by nasal cannula. CARDIOVASCULAR: S1, S2. Minimally elevated JVD. Pedal edema resolved. Patient does have an irregularly irregular rhythm, fairly controlled heart rate. GENERAL: The patient is alert and oriented x3, not in any acute distress. Well developed, well nourished. HEENT: Pupils are round and equally reacting to light. EOMI. No scleral icterus. No conjunctival pallor. Normocephalic, atraumatic. No pharyngeal erythema. No thyromegaly. PULMONARY: Chest is clear to auscultation, no wheezing or crackles. ABDOMEN: Soft, nontender, nondistended, normoactive bowel sounds. No palpable organomegaly. MUSCULOSKELETAL: No joint swelling or deformity. EXTREMITIES: No cyanosis, clubbing, or pedal edema. NEUROLOGICAL: Gross neurological examination did not reveal any focal deficits. SKIN: No rashes. LABORATORY DATA: Kidney function remains stable. Leukocytosis improved, kidney function actually improved with Lasix, came down from 1.37 to 1.20. ASSESSMENT AND PLAN: 1. 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 2. Atrial fibrillation, fairly rate-controlled. When patient was admitted, patient has ( ). 3. Leukocytosis is a reactive response. 4. Acute renal failure secondary to prerenal azotemia from congestive heart failure exacerbation, improved with IV Lasix. 5. Mild hyperkalemia. 6. Gastroesophageal reflux disease. 7. Hyperlipidemia. 8. Recent upper respiratory infection. PLAN: IV Lasix, strict I's and O's, clinical monitoring, monitor kidney function and electrolytes.
[2016-03-06] MEDS ORDERED: ALPRAZolam 0.25 MG TAB PO PRN (14:25)
[2016-03-06] MEDS ORDERED: ALPRAZolam 0.5 MG TAB PO PRN (14:25)
[2016-03-06] MEDS ORDERED: ATORVASTATIN 80 MG TAB PO STA (14:25)
[2016-03-06] MEDS ORDERED: ASPIRIN 325 MG TAB PO STA (14:25)
[2016-03-06] MEDS ORDERED: SODIUM CHLORIDE 0.9% 1,000 ML in EMPTY BAG 1 BAG IV ONE (14:25)
[2016-03-06] MEDS ORDERED: NITROGLYCERIN SL TABS 0.4 MG TAB SUBLINGUAL PRN (14:25)
--- NOTE | 2016-03-06 20:35 | PN ---
Patient is admitted with SVT onset atrial fibrillation, congestive heart failure, chronic systolic dysfunction with acute exacerbation. Patient is undergoing ischemic versus nonischemic cardiomyopathy. Patient did undergo cardiac catheter tomorrow. REVIEW OF SYSTEMS: CARDIOVASCULAR: No chest pain, no orthopnea, no PND, no palpitations. PULMONARY: Denied any shortness of breath. No cough or hemoptysis. GASTROINTESTINAL: No diarrhea, nausea or vomiting. No abdominal pain. Normoactive bowel sounds. NEUROLOGIC: No headaches, no weakness, no numbness. Medications are reviewed. PHYSICAL EXAMINATION: VITAL SIGNS: Temperature 97.6, pulse of 73, respiratory rate of 18, blood pressure is 93/76, saturating at 97% on room air. GENERAL: The patient is alert and oriented x3, not in any acute distress. Well developed, well nourished. HEENT: Pupils are round and equally reacting to light. EOMI. No scleral icterus. No conjunctival pallor. Normocephalic, atraumatic. No pharyngeal erythema. No thyromegaly. CARDIOVASCULAR: S1 and S2 present. No murmurs, rubs, or gallops. PULMONARY: Chest is clear to auscultation, no wheezing or crackles. ABDOMEN: Soft, nontender, nondistended, normoactive bowel sounds. No palpable organomegaly. MUSCULOSKELETAL: No joint swelling or deformity. EXTREMITIES: No cyanosis, clubbing, or pedal edema. NEUROLOGICAL: Gross neurological examination did not reveal any focal deficits. SKIN: No rashes. LABORATORY DATA: CBC basic metabolic profile are abnormal for elevated WBC count of 15,900 which is improving and creatinine improved to 1.01 compared to 1.7 on admission. ASSESSMENT AND PLAN: 1. 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 Leading to hypoxic respiratory failure which is improving at this point of time. 2. Atrial fibrillation, fairly rate-controlled. 3. Acute renal failure secondary to prerenal azotemia from congestive heart failure improved with Lasix. 4. Hypokalemia. 5. Gastroesophageal reflux disease. 6. Hyperlipidemia. 7. Recent upper respiratory tract infection. Plan is to continue with IV Lasix, I's and O's. Kidney function monitoring. Electrolytes monitoring. Possibility of cardiac catheterization tomorrow.
[2016-03-07] MEDS: LISINOPRIL 2.5 MG TAB PO SCH (06:49)
[2016-03-07] MEDS: METOPROLOL TARTRATE 50 MG TAB PO SCH ×3 (06:49→21:07)
[2016-03-07 07:38] LABS: Anion Gap 11 mmol/L; Blood Urea Nitrogen 18 mg/dL (9-20); Calcium 9.5 mg/dL (8.4-10.2); Carbon Dioxide 31 mmol/L (22-30); Chloride 97 mmol/L (98-107); Glucose 98 mg/dL (74-99); Non-African American GFR(MDRD) >60 (>60 ml/min/1.73 sqM); Potassium 4.9 mmol/L (3.5-5.1); Sodium 139 mmol/L (137-145)
[2016-03-07 07:56] LABS: CH 31.2; CHCM 32.4; HCT 46.6 % (39.0-53.0); HDW 3.11; HGB 14.7 gm/dL (13.0-17.5); MCH 30.5 pg (25.0-35.0); MCHC 31.4 g/dL (31.0-37.0); Mean Platelet Volume 8.9; RBC 4.81 m/uL (4.30-5.90); RDW 15.6 % (11.5-15.5); WBC 15.1 k/uL (3.8-10.6); WBC (Perox) 15.58
[2016-03-07] MEDS: FUROSEMIDE 10 MG/ML 4 ML VIAL IV SCH (08:02)
[2016-03-07] MEDS: SPIRONOLACTONE 25 MG TAB PO SCH (08:02)
[2016-03-07 08:50] LABS: Add Differential Manual Differential
[2016-03-07 08:52] LABS: Nucleated Red Blood Cells 0 /100 WBC (0-0); Total Cells Counted 100
[2016-03-07 08:53] LABS: Large Platelets Present
[2016-03-07 10:25] VITALS: RESP 18
[2016-03-07] MEDS ORDERED: ASPIRIN 325 MG TAB PO STA (12:58)
[2016-03-07] MEDS ORDERED: IV FLUID CONTINUATION 1,000 ML IV ONE (13:54)
[2016-03-07] MEDS ORDERED: MIDAZOLAM 2 MG/2 ML VIAL IV ONE (14:12)
[2016-03-07] MEDS ORDERED: LIDOCAINE 2% INJ 20 MG/ML SQ ONE (14:18)
[2016-03-07] MEDS: VERAPAMIL SYRINGE (5 MG/10 ML) INTRAARTER ONE ×2 (14:19→14:42)
[2016-03-07] MEDS ORDERED: IOHEXOL 350 MG/ML 100 ML BOTTLE INTRATHECA ONE ×2 (14:39→14:43)
[2016-03-07] MEDS ORDERED: RX INFO: IV CONTRAST WAS GIVEN 1 EACH MISC MISCELLANE PRN (14:44)
[2016-03-07] MEDS ORDERED: SODIUM CHLORIDE 0.9% 1,000 ML IV SCH (14:45)
--- NOTE | 2016-03-07 16:20 | P.PN ---
Subjective Date of service 03/06/2016 Progress note being dictated for Dr. Garcia . Interval history: Is a 55-year-old gentleman admitted with shortness of breath, atrial fibrillation, CHF, acute renal failure and multiple other medical issues. Echo report is severely impaired LV function, EF between 20 and 25%, Evaluated by cardiology and patient is scheduled for cardiac catheterization today. Yesterday borderline hypotension, Lasix dose decreased with improved blood pressures today,MAP ranging 70s to 80s. Denies chest pain, palpitations. Objective - Vital Signs Vital signs: Vital Signs Temp 96.9 F L 03/07/16 12:00 Pulse 71 03/07/16 12:00 Resp 18 03/07/16 12:00 BP 106/60 03/07/16 12:00 Pulse Ox 96 03/07/16 12:00 Intake & Output 03/06/16 03/07/16 03/07/16 18:59 06:59 18:59 Intake Total 920 780 50 Output Total 1000 300 Balance -80 480 50 Weight 78.2 kg Intake: IV 780 50 Sodium Chloride 0.9% 1, 780 000 ml In Empty Bag 1 bag @ 1 ML/KG/HR 78.7 mls/hr IV .[id number] [facility] Rx#: [id number] Oral 920 Output: Urine 1000 300 Other: Voiding Method Toilet Toilet Toilet # Voids 2 - Exam PHYSICAL EXAM: VITAL SIGNS: As above GENERAL: [Sitting up in bed, no acute distress] HEENT: [Pupils equal conjunctiva normal, no conjunctival pallor, no scleral icterus, normocephalic, atraumatic.] NECK: [Supple, no JVD] RESPIRATORY EFFORT:[Normal] LUNGS: [Clear to auscultation, no crackles or wheezing] CARDIOVASCULAR[irregular, no murmurs rubs or gallops, no edema] GI: [Abdomen soft, nontender, nondistended, positive bowel sounds.] PSYCH: [Alert and oriented -3, mood and affect normal. NEURO: No focal deficits, moves all 4 extremities, strength and sensation grossly intact] NEURO: No focal deficits - Labs CBC & Chem 7: 03/07/16 07:00 03/07/16 07:00 Labs: Abnormal Lab Results - Last 24 Hours (Table) 01/10/17 01/10/17 Range/Units 07:00 07:00 WBC 15.1 H (3.8-10.6) k/uL RDW 15.6 H (11.5-15.5) % Plt Count 950 H* (150-450) k/uL Neutrophils # (Manual) 11.5 H (1.3-7.7) k/uL Chloride 97 L (98-107) mmol/L Carbon Dioxide 31 H (22-30) mmol/L Assessment and Plan Plan: 1. [Acute hypoxic respiratory failure secondary to Acute on chronic congestive heart failure exacerbation, systolic dysfunction, possibly related to viral cardiomyopathy]. 2. [Atrial fibrillation, controlled]. 3. [Acute renal failure secondary to prerenal azotemia from CHF, improved with Lasix]. 4. [Hypokalemia, resolved]. 5. [Gastroesophageal reflux disease]. 6. [Hyperlipidemia]. 7. [Resent upper respiratory tract infection]. Plan: Continue on current medication regime, Lasix, monitoring and symptomatic treatment. Awaiting cardiac catheterization today. Close monitoring of electrolytes with repeat labs ordered for a.m. Further recommendations to follow. The impression and plan of care has been dictated as directed. : I performed a H&P examination of this patient and discussed the same with the dictator. I agree with the dictator's note. Any additional findings/opinions/ etc. will be noted.
--- NOTE | 2016-03-07 19:41 | CC ---
DATE OF SERVICE: 03/07/2016 PERFORMING PHYSICIAN: Anoop Ortega M.D., incident engineer. PROCEDURE PERFORMED: Selective right and left coronary angiogram. INDICATION: This is a pleasant 55-year-old gentleman who presented to the hospital with congestive heart failure exacerbation and was found to have severe cardiomyopathy with an ejection fraction between 25% and 30%. The heart catheterization is to rule out any severe underlying CAD. APPROACH: Right radial artery. COMPLICATIONS: None. LEVEL OF SEDATION: Moderate. PROCEDURE DESCRIPTION: After obtaining informed consent, the patient was brought to the cardiac clinical laboratory service teacher. Right radial artery was cannulated using micropuncture technique. The micropuncture wire passed easily. Then I placed a 6 Nepali sheath in the right radial artery. Subsequently I gave the patient 2 mg of Verapamil IA and 3000 units of heparin IV. Then I did selective right and left coronary angiogram using JR4 for the right coronary artery and JL3.5 for the left circumflex and JL3.0 for the LAD because the LAD and left circumflex had separate ostia. The procedure was completed without any complication. SELECTIVE CORONARY ANGIOGRAM: 1. The right coronary artery is a medium-caliber vessel. It is a non-dominant vessel. It is angiographically normal. 2. The left main does not exist. The LAD and left circumflex have separate ostia. 3. The left circumflex is a large-caliber vessel. It is a dominant vessel. The proximal left circumflex is normal and gives rise to the first OM branch, which is a large-caliber vessel with mild ostial disease. The mid left circumflex is normal. The left circumflex distally is normal and bifurcates into PDA and PLV branches; both are angiographically normal. 4. The LAD. The proximal left anterior descending artery appeared to be angiographically normal. It gives rise to a first diagonal branch, which appeared to be angiographically normally. The mid LAD and distal LAD are angiographically normal. CONCLUSION: 1. The left main does not exist and the LAD and left circumflex originate from the aorta. 2. Dominant left circumflex coronary system. 3. Mild non-obstructive coronary artery disease. POST-PROCEDURE MANAGEMENT: Maximize medical treatment and follow up with the patient.
[2016-03-07] MEDS ORDERED: APIXABAN 5 MG TAB PO STA (21:59)
[2016-03-08 06:26] LABS: Basophils # (A) 0.1 k/uL (0-0.2); Basophils % (A) 1 %; CH 31.3; CHCM 32.6; Eosinophils # (A) 0.3 k/uL (0-0.7); Eosinophils % (A) 2 %; HCT 46.9 % (39.0-53.0); HDW 3.12; HGB 14.7 gm/dL (13.0-17.5); Luc # (Auto) 0.17; Luc % (Auto) 1; Lymphocytes # (A) 2.1 k/uL (1.0-4.8); Lymphocytes % (A) 14 %; MCH 30.5 pg (25.0-35.0); MCHC 31.4 g/dL (31.0-37.0); MCV 96.9 fL (80.0-100.0); Monocytes # (A) 0.7 k/uL (0-1.0); Monocytes % (A) 4 %; Neutrophils # (A) 11.5 k/uL (1.3-7.7); Neutrophils % (A) 78 %; RBC 4.84 m/uL (4.30-5.90); RDW 15.8 % (11.5-15.5); WBC 14.8 k/uL (3.8-10.6); WBC (Perox) 15.79
[2016-03-08 06:43] LABS: Anion Gap 10 mmol/L; Blood Urea Nitrogen 17 mg/dL (9-20); Calcium 9.8 mg/dL (8.4-10.2); Carbon Dioxide 31 mmol/L (22-30); Chloride 100 mmol/L (98-107); Glucose 88 mg/dL (74-99); Non-African American GFR(MDRD) >60 (>60 ml/min/1.73 sqM); Potassium 5.4 mmol/L (3.5-5.1); Sodium 141 mmol/L (137-145)
[2016-03-08] MEDS: LISINOPRIL 2.5 MG TAB PO SCH (08:12)
[2016-03-08] MEDS: FUROSEMIDE 10 MG/ML 4 ML VIAL IV SCH (08:12)
[2016-03-08] MEDS: METOPROLOL TARTRATE 50 MG TAB PO SCH (08:13)
[2016-03-08] MEDS: SPIRONOLACTONE 25 MG TAB PO SCH (08:13)
[2016-03-08] MEDS ORDERED: APIXABAN 5 MG TAB PO SCH (09:00)
--- NOTE | 2016-03-08 11:55 | P.PN ---
Subjective Principal diagnosis: Atrial fibrillation/cardiomyopathy This is a pleasant 55-year-old gentleman with no significant past medical history presented to the hospital complaining of shortness of breath. The patient describes progressive exertional dyspnea started about 3-4 weeks ago Beside that he describes orthopnea. He did not have any edema in the lower extremities. He denies having any chest pain or chest discomfort but he describes discomfort in the upper back and the back of the neck as well as. The patient was diagnosed with congestive heart failure exacerbation. The chest x-ray showed findings consistent with CHF. The BNP came in to be around 11,000s. The cardiac enzymes came in to be slightly abnormal as well. The EKG showed A. fib with RVR with what it seems to be diffuse nonspecific ST and T wave abnormalities. He underwent an echocardiogram which showed severity cardiomyopathy with an ejection fraction of 25% with global hypokinesia and evidence of hypertensive heart disease as well as evidence of small pericardial effusion. Cardiac catheterization was performed yesterday, findings, the left main does not exist in the LAD and left circumflex originate from the aorta. Dominant left circumflex coronary system and mild nonobstructive coronary artery disease, maximal medical therapy was advised. Patient was seen and examined this morning , up ambulating in the hallway without any difficulty. Objective - Vital Signs Vital signs: Vital Signs Temp 97.6 F 03/08/16 08:00 Pulse 73 03/08/16 08:00 Resp 18 03/08/16 08:00 BP 119/79 03/08/16 08:00 Pulse Ox 95 03/08/16 08:00 Intake & Output 03/07/16 03/08/16 03/08/16 18:59 06:59 18:59 Intake Total 50 180 Output Total 650 400 Balance -600 -400 180 Weight 77.1 kg Intake: IV 50 Oral 180 Output: Urine 650 400 Other: Voiding Method Toilet Toilet Toilet - Exam PHYSICAL EXAMINATION: HEENT: Head is atraumatic, normocephalic. Pupils equal, round. Neck is supple. There is no elevated jugular venous pressure. HEART EXAMINATION: Heart S1 and S2 irregular irregular CHEST EXAMINATION: Lungs are clear to auscultation and precussion. No chest wall tenderness is noted on palpation or with deep breathing. ABDOMEN: Soft, nontender. Bowel sounds are heard. No organomegaly noted. Right radial site clean and dry, good distal pulse. EXTREMITIES: 2+ peripheral pulses with no evidence of peripheral edema and no calf tenderness noted. NEUROLOGIC patient is awake, alert and oriented -3. . - Labs CBC & Chem 7: 03/08/16 06:01 03/08/16 06:01 Labs: Abnormal Lab Results - Last 24 Hours (Table) 03/08/16 03/08/16 Range/Units 06:01 06:01 WBC 14.8 H (3.8-10.6) k/uL RDW 15.8 H (11.5-15.5) % Plt Count 905 H* (150-450) k/uL Neutrophils # 11.5 H (1.3-7.7) k/uL Potassium 5.4 H (3.5-5.1) mmol/L Carbon Dioxide 31 H (22-30) mmol/L Assessment and Plan (1) Paroxysmal a-fib Status: Acute (2) S/P cardiac cath Status: Acute (3) Atrial fibrillation with RVR Status: Acute (4) NICM (nonischemic cardiomyopathy) Status: Acute Plan: Cardiology's perspective, patient may be able to be discharged home today. We will make him a follow-up appointment in the office with Dr. Hensley in one week. He will continue on Eliquis 5 mg one tablet by mouth twice a day for anticoagulation. Patient is also on Lasix 40 mg daily, metoprolol tartrate 50 mg one tablet by mouth 3 times a day, Aldactone 25 mg daily, patient is not currently on an ANICETO inhibitor because of elevated potassium, this will be reevaluated as an outpatient. Patient's cardiomyopathy may be a rate-induced from the atrial fibrillation, a repeat echocardiogram with Doppler study will be performed as an outpatient in approximately 6 weeks. At this point in time we will continue his current medications. DNP note has been reviewed, I agree with a documented findings and plan of care. Patient was seen and examined.
[2016-03-08 12:01] VITALS: BP 110/78; PULSE 72; TEMP 96.8
[2016-03-09] MEDS ORDERED: FUROSEMIDE 40 MG TAB PO SCH (09:00)
--- NOTE | 2016-03-09 16:46 | P.DS ---
Providers Date of admission: 03/03/16 13:18 Expected date of discharge: 03/08/16 Attending physician: MD Dr. Yony Gray. Consults: 03/03/16 13:35 Consult Physician Stat Consulting Provider: Peter Kwon Consult Reason/Comments: A. fib with RVR Do you want consulting provider notified?: Yes Dr. Ortega, cardiology Primary care physician: Stated None [facility] Hospital Course: Final Diagnoses: 1. 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 2. [Acute Atrial fibrillation, controlled, anticoagulated on Eliquis]. 3. [Acute renal failure secondary to prerenal azotemia from CHF, improved with Lasix]. 4. [Hypokalemia, resolved]. 5. [Gastroesophageal reflux disease]. 6. [Hyperlipidemia]. 7. [Resent upper respiratory tract infection]. Hospital course: This is a 55-year-old gentleman admitted with shortness of breath, atrial fibrillation, CHF, acute renal failure and multiple other medical issues. Echo report is severely impaired LV function, EF between 20 and 25%, Evaluated by cardiology, underwent cardiac catheterization reporting different anatomy, left main does not exist; LAD and left circumflex originates from the aorta, dominant left circumflex coronary system, mild nonobstructive CAD. Maximize medical treatment advised. Cleared by cardiology for discharge. Patient is being discharged home in a stable condition with guarded prognosis. Patient Condition at Discharge: Stable Plan - Discharge Summary New Discharge Prescriptions: Apixaban [Eliquis] 5 mg PO BID #60 tab Furosemide [Lasix] 40 mg PO DAILY #30 tab Metoprolol Tartrate [Lopressor] 50 mg PO TID #90 tab Discharge Medication List Clotrimazole/Betameth Cream [Lotrisone] 1 applic TOPICAL DAILY PRN 03/03/16 [ History] Apixaban [Eliquis] 5 mg PO BID #60 tab 03/08/16 [Rx] Furosemide [Lasix] 40 mg PO DAILY #30 tab 03/08/16 [Rx] Metoprolol Tartrate [Lopressor] 50 mg PO TID #90 tab 03/08/16 [Rx] Follow up Appointment(s)/Referral(s): Anoop Ortega MD [STAFF PHYSICIAN] - 03/15/16 3:15 pm Nury Tanner DO [REFERRING] - 03/13/16 2:00 pm ([facility] ) Ambulatory/Diagnostic Orders: Basic Metabolic Panel [LAB.AMB] Time Frame: 3 Days, Location: Determined By Patient Patient Instructions/Handouts: After Heart Catheterization - Multimedia Developer, Atrial Fibrillation (DC), Left Heart Catheterization (DC) Activity/Diet/Wound Care/Special Instructions: No ANICETO inhibitor at this time secondary to hyperkalemia Diet: Cardiac, low potassium,"CHF Diet" Activity: Limited until follow up Discharge Disposition: HOME SELF-CARE
== END 2016-03-08 13:55 | disposition home or self-care (01) | DRG 286 ==
LOC: EC 10:50 → 6SEL 13:18
PROVIDERS: ADMIT Internal Medicine; ATTEND Internal Medicine
PROC: 3E0234Z Introduction of Serum, Toxoid and Vaccine into Muscle, Percutaneous Approach (ICD-10-PCS; 2016-03-04)
PROC: B2111ZZ Fluoroscopy of Multiple Coronary Arteries using Low Osmolar Contrast (ICD-10-PCS; principal; 2016-03-07 13:54)
DX: I48.0 Paroxysmal atrial fibrillation (principal); I50.23 Acute on chronic systolic (congestive) heart failure; J96.01 Acute respiratory failure with hypoxia; N17.9 Acute kidney failure, unspecified; I31.3 Pericardial effusion (noninflammatory); I47.1 Supraventricular tachycardia; I11.0 Hypertensive heart disease with heart failure; E87.5 Hyperkalemia; B33.24 Viral cardiomyopathy; Z23 Encounter for immunization; K21.9 Gastro-esophageal reflux disease without esophagitis; E78.5 Hyperlipidemia, unspecified; J06.9 Acute upper respiratory infection, unspecified; E87.6 Hypokalemia; I25.10 Atherosclerotic heart disease of native coronary artery without angina pectoris; H54.0 Blindness, both eyes; E73.9 Lactose intolerance, unspecified; M19.90 Unspecified osteoarthritis, unspecified site; D47.3 Essential (hemorrhagic) thrombocythemia; K44.9 Diaphragmatic hernia without obstruction or gangrene; Z79.899 Other long term (current) drug therapy
CPT/HCPCS: 36415; 71020; 78582; 80048; 80053; 80061; 82550; 82553; 83880; 84132; 84484; 85025; 85379; 85610; 85730; 87502; 90686; 93005; 93306; 93454; 96365; 96366; 96368; 96376; 99291

== ENCOUNTER 2016-03-11 08:41 | Emergency (ER) | payer OTHER ==
[2016-03-11] MEDS ORDERED: MORPHINE SULFATE 4 MG/ML SYRINGE IVP STA ×2 (09:20→13:58)
--- NOTE | 2016-03-11 09:23 | ED ---
Extremity Problem HPI - General Chief complaint: Extremity Problem,Nontraumatic Stated complaint: leg pain Time Seen by Provider: 03/11/16 09:00 Source: patient, RN notes reviewed Mode of arrival: wheelchair Limitations: no limitations - History of Present Illness Initial comments: Patient is a 55-year-old male presents the emergency room for evaluation of right knee pain and swelling. Patient states he was admitted here for A. fib and CHF from 03/03/16-03/08/16. Patient states that while he was here he had a stent placed and was placed on Elequis. Patient states he was feeling better when he was discharged. Patient states he woke up on and noticed that his right knee was swollen and red. Patient states the pain is increased since. Patient states she has 8 out of 10 pain when he is resting his knee and 10 out of 10 pain when he tries to end his knee and straighten his knee from a bent position. Patient denies any trauma or injuries to that knee. Patient denies any past surgeries in that knee. Patient does admit he has a history of gout in his foot. Patient denies any history of gout and his knees. Patient denies fevers. Patient has numbness or tingling in his toes. Patient states he 's worried he has a blood clot. - Related Data Home Medications Medication Instructions Recorded Confirmed Clotrimazole/Betameth Cream 1 applic TOPICAL DAILY PRN 03/03/16 03/11/16 [Lotrisone] Spironolactone [Aldactone] 25 mg PO DAILY 03/11/16 03/11/16 Previous Rx's Medication Instructions Recorded Apixaban [Eliquis] 5 mg PO BID #60 tab 03/08/16 Furosemide [Lasix] 40 mg PO DAILY #30 tab 03/08/16 Metoprolol Tartrate [Lopressor] 50 mg PO TID #90 tab 03/08/16 Colchicine [Colcrys] 0.6 mg PO BID 5 Days 03/11/16 Allergies Allergy/AdvReac Type Severity Reaction Status Date / Time aspirin AdvReac Unknown Verified 03/11/16 08:46 Review of Systems ROS Statement: Those systems with pertinent positive or pertinent negative responses have been documented in the HPI. ROS Other: All systems not noted in ROS Statement are negative. 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 PAST CONTACT DERMATITIS . MONO TEENAGER,HEMORRHOIDS, LACTOSE INTOLERANCE(CAUSES DIARRHEA) , VERTIGO FEW YEARS AGO, BRONCHITIS, HIATAL HERNIA, ULCER IN THE . IRREG HEAT BEAT 1998 WORE A HALTER MONITOR BUT IT DID'NT REVEAL ANYTHING. History of Any Multi-Drug Resistant Organisms: None Reported Past Surgical History: No Surgical Hx Reported Additional Past Surgical History / Comment(s): COONOSCOPY/POLYPECTOMY(BENIGN), X3 EYE SX INFANT, JAW SX 1973, HIATAL HERNIA SX Past Anesthesia/Blood Transfusion Reactions: No Reported Reaction Past Psychological History: No Psychological Hx Reported Smoking Status: Never smoker Past Alcohol Use History: Occasional Past Drug Use History: None Reported - Past Family History Mother Family Medical History: Cancer Additional Family Medical History / Comment(s): BREAST/BONE CANCER. AUNT ALSO HAS BONE CANCER Father Family Medical History: CVA/TIA Additional Family Medical History / Comment(s): CABG General Exam - General Exam Comments Initial Comments: Sitting in exam room in no acute distress. Limitations: no limitations General appearance: alert, in no apparent distress Head exam: Present: atraumatic, normocephalic, normal inspection Eye exam: Present: normal appearance ENT exam: Present: normal exam Neck exam: Present: normal inspection Respiratory exam: Present: normal lung sounds bilaterally. Absent: respiratory distress Cardiovascular Exam: Present: regular rate, normal rhythm, normal heart sounds Right Upper Leg exam: Present: normal inspection, full ROM. Absent: tenderness Knee exam: Present: full ROM, tenderness (Anterior patella), swelling, erythema (Anterior patella), effusion, full knee extension Lower Leg exam: Present: normal inspection, full ROM. Absent: tenderness Neurovascular tendon exam: Absent: pulse deficit (2+ dorsal pedal and posterior tibial pulses), abnormal cap refill (Capillary refill less than 2 seconds) Back exam: Present: normal inspection Neurological exam: Present: alert, oriented X3, CN II-XII intact Psychiatric exam: Present: normal affect, normal mood Skin exam: Present: warm, dry, intact, normal color. Absent: rash Course Vital Signs 03/11/16 03/11/1603/11/17 08:43 10:43 12:44 Temperature 98.1 F 97.2 F L Pulse Rate 89 89 94 Respiratory 20 18 18 Rate Blood Pressure 117/76 124/71 120/80 O2 Sat by Pulse 98 94 L 98 Oximetry 03/11/16 03/11/16 03/11/16 13:00 14:20 14:40 Temperature 98.2 F 97.4 F L 97.3 F L Pulse Rate 87 72 65 Respiratory 16 16 16 Rate Blood Pressure 127/73 111/83 117/73 O2 Sat by Pulse 94 L 100 98 Oximetry - Reevaluation(s) Reevaluation #1: 03/11/16 11:44 Patient reevaluated feeling better. Based on lab work appears patient's knee symptoms related to gout. Patient will be started on colchicine and will have him reevaluated in 2 hours. Medical Decision Making - Medical Decision Making Patient is a 55-year-old male presents emergency room for evaluation of right knee pain and swelling. Patient's symptoms and lab work consistent with gout. Ultrasound negative for DVT. Patient started on colchicine and feeling better. Patient also noted to have thrombocytosis. Patient states this was an issue last time she was here. Patient states he is planning on following up with a primary care provider regarding it. Case discussed with Dr. Villeda. Dr. Villeda also evaluated patient. Patient will be sent home with colchicine and advised to continue taking all his other medications. Patient states he has an appointment with his cue worker next week and I will provide patient with on- call primary care provider to follow-up with. Patient states he understands everything that was discussed with him. Return parameters discussed. - Lab Data Result diagrams: 03/11/16 10:10 03/11/16 10:10 Lab Results 03/11/16 03/11/16 03/11/16 Range/Units 10:10 10:10 11:00 WBC 21.9 H (3.8-10.6) k/uL RBC 5.08 (4.30-5.90) m/uL Hgb 15.1 (13.0-17.5) gm/dL Hct 47.6 (39.0-53.0) % MCV 93.7 (80.0-100.0) fL MCH 29.8 (25.0-35.0) pg MCHC 31.8 (31.0-37.0) g/dL RDW 15.4 (11.5-15.5) % Plt Count 992 H* (150-450) k/uL Neutrophils % 86 % Lymphocytes % 6 % Monocytes % 5 % Eosinophils % 1 % Basophils % 1 % Neutrophils # 18.8 H (1.3-7.7) k/uL Lymphocytes # 1.4 (1.0-4.8) k/uL Monocytes # 1.1 H (0-1.0) k/uL Eosinophils # 0.2 (0-0.7) k/uL Basophils # 0.2 (0-0.2) k/uL ESR 2 (0-15) mm/hr Sodium 138 (137-145) mmol/L Potassium 5.3 H (3.5-5.1) mmol/L Chloride 101 (98-107) mmol/L Carbon Dioxide 27 (22-30) mmol/L Anion Gap 10 mmol/L BUN 21 H (9-20) mg/dL Creatinine 1.00 (0.66-1.25) mg/dL Est GFR (MDRD) Af Amer >60 (>60 ml/min/1.73 sqM) Est GFR (MDRD) Non-Af >60 (>60 ml/min/1.73 sqM) Glucose 111 H (74-99) mg/dL Uric Acid 10.4 H (3.5-8.5) mg/dL Calcium 10.0 (8.4-10.2) mg/dL Total Bilirubin 2.6 H (0.2-1.3) mg/dL AST 20 (17-59) U/L ALT 33 (21-72) U/L Alkaline Phosphatase 127 H (38-126) U/L C-Reactive Protein 10.8 H (<10.0) mg/L Total Protein 6.4 (6.3-8.2) g/dL Albumin 4.0 (3.5-5.0) g/dL Urine Color Light Yellow Urine Appearance Clear (Clear) Urine pH 6.0 (5.0-8.0) Ur Specific Lequire 1.005 (1.001-1.035) Urine Protein Negative (Negative) Urine Glucose (UA) Negative (Negative) Urine Ketones Negative (Negative) Urine Blood Negative (Negative) Urine Nitrate Negative (Negative) Urine Bilirubin Negative (Negative) Urine Urobilinogen <2.0 (<2.0) mg/dL Ur Leukocyte Esterase Negative (Negative) - Radiology Data Radiology results: report reviewed, image reviewed Disposition Clinical Impression: Gout of right knee, Thrombocytosis Disposition: HOME SELF-CARE Instructions: Gout (ED) Additional Instructions: Take colchicine as directed. Continue with other medications. Please follow- up with primary care provider in 24-48 hours. If any new symptom arises, symptoms worsen or fever develops, return to ER as soon as possible. Prescriptions: Colchicine [Colcrys] 0.6 mg PO BID 5 Days Referrals: Fabio Fuller MD [STAFF PHYSICIAN] - 1-2 days Time of Disposition: 14:10
--- NOTE | 2016-03-11 10:16 | US ---
EXAMINATION TYPE: US venous doppler duplex LE RT DATE OF EXAM: 03/11/2016 9:56 AM COMPARISON: NONE TECHNIQUE: Doppler ultrasound examination of the right lower extremity. CLINICAL HISTORY: 55-year-old male patient has right leg pain greatest at the knee for 2 days, recent ly treated for congestive heart failure FINDINGS: SIDE PERFORMED: Right VESSELS IMAGED: External Iliac Vein (EIV) Common Femoral Vein Deep Femoral Vein Greater Saphenous Vein * Femoral Vein Popliteal Vein Small Saphenous Vein * Proximal Calf Veins (* superficial vessels) Right Leg: Negative for DVT IMPRESSION: No evidence for acute DVT in the right lower extremity imaged from the groin to the upper calf.
[2016-03-11 10:31] LABS: Basophils # (A) 0.2 k/uL (0-0.2); Basophils % (A) 1 %; CH 31.1; CHCM 33.5; Eosinophils # (A) 0.2 k/uL (0-0.7); Eosinophils % (A) 1 %; HCT 47.6 % (39.0-53.0); HDW 3.09; HGB 15.1 gm/dL (13.0-17.5); Luc # (Auto) 0.27; Luc % (Auto) 1; Lymphocytes # (A) 1.4 k/uL (1.0-4.8); Lymphocytes % (A) 6 %; MCH 29.8 pg (25.0-35.0); MCHC 31.8 g/dL (31.0-37.0); MCV 93.7 fL (80.0-100.0); Mean Platelet Volume 9.5; Monocytes # (A) 1.1 k/uL (0-1.0); Monocytes % (A) 5 %; Neutrophils # (A) 18.8 k/uL (1.3-7.7); Neutrophils % (A) 86 %; RBC 5.08 m/uL (4.30-5.90); RDW 15.4 % (11.5-15.5); WBC 21.9 k/uL (3.8-10.6); WBC (Perox) 22.46
[2016-03-11 10:37] LABS: ALT 33 U/L (21-72); AST 20 U/L (17-59); Alkaline Phosphatase 127 U/L (38-126); Anion Gap 10 mmol/L; Blood Urea Nitrogen 21 mg/dL (9-20); C Reactive Protein 10.8 mg/L (<10.0); Carbon Dioxide 27 mmol/L (22-30); Chloride 101 mmol/L (98-107); Glucose 111 mg/dL (74-99); Non-African American GFR(MDRD) >60 (>60 ml/min/1.73 sqM); Potassium 5.3 mmol/L (3.5-5.1); Sodium 138 mmol/L (137-145); Total Bilirubin 2.6 mg/dL (0.2-1.3); Total Protein 6.4 g/dL (6.3-8.2); Uric Acid 10.4 mg/dL (3.5-8.5)
--- NOTE | 2016-03-11 10:43 | XR ---
EXAMINATION TYPE: XR knee complete RT DATE OF EXAM: 03/11/2016 10:35 AM COMPARISON: NONE HISTORY: 55-year-old male with knee pain and swelling TECHNIQUE: 3 views FINDINGS: There is a small knee joint effusion and anterior soft tissue swelling. Some vascular calcifications are present. No acute fracture or dislocation. IMPRESSION: 1. Prominent anterior soft tissue swelling and small knee joint effusion. 2. No acute osseous abnormality seen.
[2016-03-11 11:16] LABS: Appearance,Urine Clear (Clear); Bilirubin,Urine Negative (Negative); Glucose,Urine (UA) Negative (Negative); Ketones,Urine Negative (Negative); Leukocyte Esterase,Urine Negative (Negative); Nitrite,Urine Negative (Negative); Protein,Urine Negative (Negative); Specific Gravity,Urine 1.005 (1.001-1.035); UA Billing (MACRO vs. MICRO) CHEM; Urobilinogen,Urine <2.0 mg/dL (<2.0)
[2016-03-11 11:19] LABS: Erythrocyte Sedimentation Rate 2 mm/hr (0-15)
[2016-03-11] MEDS ORDERED: COLCHICINE 0.6 MG TAB PO STA (11:43)
[2016-03-11 13:29] VITALS: RESP 16
[2016-03-11 14:40] VITALS: BP 117/73; PULSE 65; TEMP 97.3
== END 2016-03-11 14:40 | disposition home or self-care (01) ==
LOC: EC 08:41
DX: M10.9 Gout, unspecified (principal); D47.3 Essential (hemorrhagic) thrombocythemia; I48.91 Unspecified atrial fibrillation; I50.9 Heart failure, unspecified; Z79.01 Long term (current) use of anticoagulants; Z79.899 Other long term (current) drug therapy
CPT/HCPCS: 36415; 80053; 85652; 84550; 85025; 86140; 81003; 73562; 93971; 99284; 96374; 96376; J2270; 96375

== ENCOUNTER 2016-03-21 10:45 | Observation (INO) | payer OTHER ==
--- NOTE | 2016-03-21 12:51 | ED ---
General Adult HPI - General Chief complaint: Extremity Injury, Lower Stated complaint: foot pain Time Seen by Provider: 03/21/16 11:50 Source: patient, RN notes reviewed Mode of arrival: ambulatory Limitations: no limitations - History of Present Illness Initial comments: This is a 55-year-old male who presents to the emergency department complaining of right first MTP joint pain and pain in the fifth metatarsal on the left. Patient states he had gout in the knee recently was treated for that was called to scene it seemed to take away the pain however when a code eliciting stopped after 5 days he started getting the pain in the toe and then in the left fifth metatarsal. Patient states the pain the fifth of the metatarsal like be related to the fact the nail is infected and that fifth toe on the left is extremely red. Patient denies any fever or chills. Patient states standing on his feet hurts quite a bit. He states the feeling is burning in both feet he thought maybe he was getting plantar's warts. - Related Data Home Medications Medication Instructions Recorded Confirmed Clotrimazole/Betameth Cream 1 applic TOPICAL DAILY PRN 03/03/16 03/21/16 [Lotrisone] Spironolactone [Aldactone] 25 mg PO DAILY 03/11/16 03/21/16 Previous Rx's Medication Instructions Recorded Apixaban [Eliquis] 5 mg PO BID #60 tab 03/08/16 Furosemide [Lasix] 40 mg PO DAILY #30 tab 03/08/16 Metoprolol Tartrate [Lopressor] 50 mg PO TID #90 tab 03/08/16 Colchicine [Colcrys] 0.6 mg PO BID 5 Days 03/11/16 Allergies Allergy/AdvReac Type Severity Reaction Status Date / Time aspirin AdvReac Unknown Verified 03/21/16 11:53 Review of Systems ROS Statement: Those systems with pertinent positive or pertinent negative responses have been documented in the HPI. ROS Other: All systems not noted in ROS Statement are negative. Past Medical History Past Medical History: Atrial Fibrillation, Heart Failure, GERD/Reflux, Hyperlipidemia, Osteoarthritis (OA) Additional Past Medical History / Comment(s): BORN W BLINDNESS / INFANT HAD SX ON OPTIC NERVE(LT EYE LEGALLY BLIND, cardiomyopathy History of Any Multi-Drug Resistant Organisms: None Reported Past Surgical History: No Surgical Hx Reported Additional Past Surgical History / Comment(s): COONOSCOPY/POLYPECTOMY(BENIGN), X3 EYE SX , JAW SX 1974, HIATAL HERNIA SX Past Anesthesia/Blood Transfusion Reactions: No Reported Reaction Past Psychological History: No Psychological Hx Reported Smoking Status: Never smoker Past Alcohol Use History: Occasional Past Drug Use History: None Reported - Past Family History Mother Family Medical History: Cancer Additional Family Medical History / Comment(s): BREAST/BONE CANCER. AUNT ALSO HAS BONE CANCER Father Family Medical History: CVA/TIA Additional Family Medical History / Comment(s): CABG General Exam - General Exam Comments Initial Comments: GENERAL: Patient is well-developed and well-nourished. Patient is nontoxic and well- hydrated and is in mild distress. ENT: Neck is soft and supple. No significant lymphadenopathy is noted. Oropharynx is clear. Moist mucous membranes. Neck has full range of motion without eliciting any pain. EYES: The sclera were anicteric and conjunctiva were pink and moist. Extraocular movements were intact and pupils were equal round and reactive to light. Eyelids were unremarkable. PULMONARY: Unlabored respirations. Good breath sounds bilaterally. No audible rales rhonchi or wheezing was noted. CARDIOVASCULAR: There is a regular rate and rhythm without any murmurs gallops or rubs. ABDOMEN: Soft and nontender with normal bowel sounds. No palpable organomegaly was noted. There is no palpable pulsatile mass. SKIN: Skin is clear with no lesions or rashes and otherwise unremarkable. NEUROLOGIC: Patient is alert and oriented x3. Cranial nerves II through XII are grossly intact. Motor and sensory are also intact. Normal speech, volume and content. Symmetrical smile. MUSCULOSKELETAL: Normal extremities with adequate strength and full range of motion. No lower extremity swelling or edema. No calf tenderness. The right MTP joint is very tender to touch it is red and warm. The left fifth toe is erythematous like cellulitis in the nail appears to be the source of the infection. Just proximal to that in the fifth metatarsal he has some tenderness to palpation. LYMPHATICS: No significant lymphadenopathy is noted PSYCHIATRIC: Normal psychiatric evaluation. Limitations: no limitations Course Vital Signs 03/21/16 03/21/16 11:40 14:21 Temperature 98 F 97.4 F L Pulse Rate 89 94 Respiratory 18 18 Rate Blood Pressure 100/70 98/69 O2 Sat by Pulse 98 99 Oximetry Medical Decision Making - Medical Decision Making Patient's white count is elevated at 19 neutrophils are also elevated. I looked back in the patient's previous lab work and has been consistent felt a month. Patient also has platelets in the 900s. I spoke with Dr. Lisa and he wanted the patient admitted 23 hour and have hematology see the patient as well. - Lab Data Result diagrams: 03/21/16 13:58 03/21/16 13:58 Lab Results 03/21/16 03/21/16 Range/Units 13:58 13:58 WBC 19.4 H (3.8-10.6) k/uL RBC 5.29 (4.30-5.90) m/uL Hgb 15.7 (13.0-17.5) gm/dL Hct 49.4 (39.0-53.0) % MCV 93.4 (80.0-100.0) fL MCH 29.7 (25.0-35.0) pg MCHC 31.8 (31.0-37.0) g/dL RDW 15.0 (11.5-15.5) % Plt Count 969 H* (150-450) k/uL Neutrophils % 84 % Lymphocytes % 8 % Monocytes % 5 % Eosinophils % 1 % Basophils % 1 % Neutrophils # 16.4 H (1.3-7.7) k/uL Lymphocytes # 1.5 (1.0-4.8) k/uL Monocytes # 0.9 (0-1.0) k/uL Eosinophils # 0.2 (0-0.7) k/uL Basophils # 0.1 (0-0.2) k/uL Sodium 140 (137-145) mmol/L Potassium 5.3 H (3.5-5.1) mmol/L Chloride 100 (98-107) mmol/L Carbon Dioxide 29 (22-30) mmol/L Anion Gap 11 mmol/L BUN 19 (9-20) mg/dL Creatinine 1.10 (0.66-1.25) mg/dL Est GFR (MDRD) Af Amer >60 (>60 ml/min/1.73 sqM) Est GFR (MDRD) Non-Af >60 (>60 ml/min/1.73 sqM) Glucose 107 H (74-99) mg/dL Calcium 10.1 (8.4-10.2) mg/dL Total Bilirubin 2.0 H (0.2-1.3) mg/dL AST 22 (17-59) U/L ALT 33 (21-72) U/L Alkaline Phosphatase 132 H (38-126) U/L C-Reactive Protein 7.8 (<10.0) mg/L Total Protein 7.2 (6.3-8.2) g/dL Albumin 4.3 (3.5-5.0) g/dL Disposition Clinical Impression: Leukocytosis, Thrombocytosis, Bilateral foot pain, Cellulitis of fifth toe, left Disposition: ADMITTED IP TO THIS HOSP Referrals: None,Stated [Primary Care Provider] - 1-2 days Time of Disposition: 15:07
[2016-03-21 14:12] LABS: Basophils # (A) 0.1 k/uL (0-0.2); Basophils % (A) 1 %; CH 30.6; CHCM 32.9; Eosinophils # (A) 0.2 k/uL (0-0.7); Eosinophils % (A) 1 %; HCT 49.4 % (39.0-53.0); HDW 3.21; HGB 15.7 gm/dL (13.0-17.5); Luc % (Auto) 2; Lymphocytes # (A) 1.5 k/uL (1.0-4.8); Lymphocytes % (A) 8 %; MCH 29.7 pg (25.0-35.0); MCHC 31.8 g/dL (31.0-37.0); MCV 93.4 fL (80.0-100.0); Mean Platelet Volume 9.3; Monocytes # (A) 0.9 k/uL (0-1.0); Monocytes % (A) 5 %; Neutrophils # (A) 16.4 k/uL (1.3-7.7); Neutrophils % (A) 84 %; RBC 5.29 m/uL (4.30-5.90); WBC 19.4 k/uL (3.8-10.6); WBC (Perox) 20.49
[2016-03-21 14:19] LABS: ALT 33 U/L (21-72); AST 22 U/L (17-59); Alkaline Phosphatase 132 U/L (38-126); Anion Gap 11 mmol/L; Blood Urea Nitrogen 19 mg/dL (9-20); Calcium 10.1 mg/dL (8.4-10.2); Carbon Dioxide 29 mmol/L (22-30); Chloride 100 mmol/L (98-107); Glucose 107 mg/dL (74-99); Non-African American GFR(MDRD) >60 (>60 ml/min/1.73 sqM); Potassium 5.3 mmol/L (3.5-5.1); Sodium 140 mmol/L (137-145); Total Protein 7.2 g/dL (6.3-8.2)
[2016-03-21 14:38] LABS: C Reactive Protein 7.8 mg/L (<10.0)
[2016-03-21] MEDS ORDERED: SODIUM CHLORIDE 0.9% 1,000 ML IV ONE (15:08)
[2016-03-21] MEDS ORDERED: ceFAZolin 1,000 MG in DEXTROSE/WATER 1 50ML.BAG IVPB STA (15:12)
[2016-03-21] MEDS ORDERED: CLOTRIMAZOLE/BETAMETH 1-0.05% CREAM 45 GM TUBE TOPICAL PRN (16:53)
[2016-03-21] MEDS: APIXABAN 5 MG TAB PO SCH (21:01)
[2016-03-21] MEDS: METOPROLOL TARTRATE 50 MG TAB PO SCH (21:02)
[2016-03-21] MEDS: PANTOPRAZOLE 40 MG TABLET PO SCH (21:02)
[2016-03-21] MEDS: HYDROcodone/APAP 5-325MG 1 EACH TAB PO PRN (21:07)
[2016-03-21] MEDS: COLCHICINE 0.6 MG TAB PO SCH (22:05)
[2016-03-21] MEDS: ceFAZolin 1,000 MG in DEXTROSE/WATER 1 50ML.BAG IVPB SCH (23:11)
[2016-03-22] MEDS: HYDROcodone/APAP 5-325MG 1 EACH TAB PO PRN ×3 (02:54→15:20)
[2016-03-22] MEDS: ceFAZolin 1,000 MG in DEXTROSE/WATER 1 50ML.BAG IVPB SCH ×2 (06:06→13:01)
[2016-03-22] MEDS ORDERED: FUROSEMIDE 40 MG TAB PO SCH (09:00)
[2016-03-22 09:29] LABS: Basophils # (A) 0.2 k/uL (0-0.2); Basophils % (A) 1 %; CH 30.6; CHCM 32.9; Eosinophils # (A) 0.2 k/uL (0-0.7); Eosinophils % (A) 1 %; HDW 3.26; Luc # (Auto) 0.19; Luc % (Auto) 1; Lymphocytes # (A) 1.6 k/uL (1.0-4.8); Lymphocytes % (A) 10 %; MCH 29.3 pg (25.0-35.0); MCHC 31.2 g/dL (31.0-37.0); MCV 93.9 fL (80.0-100.0); Mean Platelet Volume 9.5; Monocytes # (A) 0.9 k/uL (0-1.0); Monocytes % (A) 6 %; Neutrophils # (A) 13.1 k/uL (1.3-7.7); Neutrophils % (A) 82 %; RBC 5.12 m/uL (4.30-5.90); RDW 15.3 % (11.5-15.5); WBC 16.1 k/uL (3.8-10.6); WBC (Perox) 17.57
[2016-03-22 09:50] LABS: Anion Gap 13 mmol/L; Blood Urea Nitrogen 15 mg/dL (9-20); Calcium 9.3 mg/dL (8.4-10.2); Carbon Dioxide 27 mmol/L (22-30); Chloride 100 mmol/L (98-107); Glucose 121 mg/dL (74-99); Non-African American GFR(MDRD) >60 (>60 ml/min/1.73 sqM); Potassium 4.9 mmol/L (3.5-5.1); Sodium 140 mmol/L (137-145); Uric Acid 9.6 mg/dL (3.5-8.5)
--- NOTE | 2016-03-22 10:08 | HP ---
DATE OF ADMISSION: Chief complaint is right foot pain and bilateral leg pain. HISTORY OF PRESENT ILLNESS: Mr. Ocampo is a 55-year-old male with known history of gout, atrial fibrillation on anticoagulation with Eliquis, CHF with ejection fraction 20% to 25% came to the hospital with complaints of pain in the right foot mainly in the right great toe in the metatarsophalangeal joint. Also has swelling in the left fifth toe. Patient has had recently gout and was being treated with colchicine at home. Right ( ) swelling and redness has improved, but patient still having right fifth toe swelling and redness. Patient also having bilateral lower extremity foot pain, which made him come to the hospital. Patient says that left fifth metatarsal toe infection is secondary to infection of the nail ( ). Otherwise, patient denied any complaints of fever or chills. No complaints of chest pain, short of breath. Patient is unable to stand on his feet due to pain which made him come to the hospital. Denied any nausea, vomiting, diarrhea. Denied any recent travel. Patient was recently admitted to the hospital in early February 2016 for acute CHF with ejection fraction 20% to 25% and diagnosed with atrial fibrillation with rapid ventricular rate at that time. REVIEW OF SYSTEMS: CONSTITUTIONAL: No fever. No chills. RESPIRATORY: No cough or sputum production. CARDIOVASCULAR: No chest pain or short of breath. No leg swelling. ABDOMEN: No nausea, vomiting or abdominal pain. GENITOURINARY: Negative. ENDOCRINE: Negative. PSYCHIATRIC: Negative. MUSCULOSKELETAL: As discussed above. [ All other 14-point review of systems negative except the above. PAST MEDICAL HISTORY: Paroxysmal atrial fibrillation on anticoagulation with Eliquis, nonischemic cardiomyopathy with ejection fraction 20% to 25%, GERD, hyperlipidemia, osteoarthritis, gout, born with blindness as infant, had surgery on optic nerve, ( ) colonoscopy with polypectomy, 3 eye surgeries as infant, jaw surgery in 1973, hiatal hernia surgery. SOCIAL HISTORY: The patient is never a smoker. Occasional alcohol use. Denied any drugs or IVDU. FAMILY HISTORY: Mother has breast/bone cancer. Aunt also has bone cancer. Father TIA/CVA. ALLERGIES: ASPIRIN. HOME MEDICATIONS: 1. Lotrisone. 2. Spironolactone. 3. Apixaban. 4. Lasix. 5. Metoprolol. 6. Colchicine. PHYSICAL EXAMINATION: A 55-year-old male lying in the bed. Awake, alert, oriented x3. Appears to be anxious, in no apparent distress. VITALS: Blood pressure is 110/78, pulse is 70, respirations 18, temperature afebrile, pulse ox 96% on room air. HEENT: Atraumatic, normocephalic. Neck is supple. No JVD. CVS EXAM: S1, S2 heard. No murmurs, no gallop. LUNGS: Bilateral air entry is present. No wheezing. No crackles. ABDOMEN: Soft, nontender. Bowel sounds are present. STRUCTURAL SHOP HELPER: Awake, alert, oriented, x3. No focal deficit. EXTREMITIES: Bilateral lower extremity no edema. No clubbing or rashes. Right first metatarsophalangeal joint is swollen and red. Left fifth toe is swollen and red with possible infection of the nail. PSYCHIATRIC: Cooperative. LABORATORY DATA: WBC 19.4, hemoglobin 13.7, platelets 969. Sodium 140, potassium 5.3, chloride 100, bicarb is 29, BUN 19, creatinine 1.1. Total bilirubin is 2.0, alk phos 132. Albumin 4.3. IMPRESSION: 1. Acute gouty arthritis right great toe and right knee improved. 2. Left fifth toe cellulitis from probable nail infection. 3. Significant leukocytosis and thrombocytosis. 4. Atrial fibrillation on anticoagulation with Eliquis. 5. Nonischemic cardiomyopathy, ejection fraction 20% to 25% with recent admission. 6. Hyperkalemia, mild. Will hold spironolactone at this time. 7. History of gout. Will check uric acid level. 8. Gastroesophageal reflux disease. 9. Hyperlipidemia. 10. Osteoarthritis. 11. History of optic nerve surgery as an . DISCUSSION AND PLAN: Patient will be continued on colchicine. Will add [place] for pain control. Patient was also started on antibiotics for left fifth toe cellulitis. I will continue with the home medications including Eliquis, Lasix and metoprolol. Will hold spironolactone at this time due to mild hyperkalemia. Patient was also recently started on lisinopril 2.5 mg daily, which will be on hold as well due to hyperkalemia. Otherwise will continue current management and follow up closely. Further recommendations based on the clinical course.
[2016-03-22 10:53] LABS: Manual Review Performed
[2016-03-22 10:54] LABS: Large Platelets Present
[2016-03-22] MEDS: COLCHICINE 0.6 MG TAB PO SCH (11:56)
[2016-03-22] MEDS: METOPROLOL TARTRATE 50 MG TAB PO SCH (11:56)
[2016-03-22] MEDS: PANTOPRAZOLE 40 MG TABLET PO SCH (11:57)
[2016-03-22] MEDS: APIXABAN 5 MG TAB PO SCH (11:57)
[2016-03-22 13:16] LABS: C Reactive Protein 11.5 mg/L (<10.0); Iron 63 ug/dL (49-181); LDH 652 U/L (313-618)
[2016-03-22 13:23] LABS: % Iron Saturation 17.9 % (20-50); Rheumatoid Factor, Qnt <9 IU/mL (<12); Total Iron Binding Capacity 351 ug/dL (261-462)
[2016-03-22 14:31] VITALS: BP 102/71; PULSE 105; RESP 16; TEMP 96.5
[2016-03-22 14:59] VITALS: BMI 20.9
--- NOTE | 2016-03-23 08:55 | DS ---
DATE OF ADMISSION: 03/21/2016 DATE OF DISCHARGE: 03/22/2016 Patient is a 55-year-old admitted for gouty arthritis with improved symptoms with Colchicine and patient will be discharged today. I recently discharged the patient from the hospital when he was treated for CHF exacerbation and during his last hospitalization the patient was started on Lisinopril and Aldactone, which is appropriate but his potassium is higher during this hospitalization 5.3, because of which I am holding of those and patient can be restarted down the line once his potassium becomes stable and the patient was advised to take low potassium diet. The patient was seen and examined on the day of discharge. Vital signs stable. PHYSICAL EXAMINATION: GENERAL: The patient is alert and oriented x3, not in any acute distress. Well developed, well nourished. HEENT: Pupils are round and equally reacting to light. EOMI. No scleral icterus. No conjunctival pallor. Normocephalic, atraumatic. No pharyngeal erythema. No thyromegaly. CARDIOVASCULAR: S1 and S2 present. No murmurs, rubs, or gallops. PULMONARY: Chest is clear to auscultation, no wheezing or crackles. ABDOMEN: Soft, nontender, nondistended, normoactive bowel sounds. No palpable organomegaly. MUSCULOSKELETAL: Improved swelling in the right great toe and right knee little bit. EXTREMITIES: No cyanosis, clubbing, or pedal edema. NEUROLOGICAL: Gross neurological examination did not reveal any focal deficits. SKIN: No rashes. The patient will be discharged today and patient does have reactive thrombocytosis and leukocytosis secondary to inflammation. Patient will be discharged today. FINAL DIAGNOSIS(ES): 1. Gouty arthritis involving multiple joints. 2. Reactive thrombocytosis which will not need any further evaluation. 3. Atrial fibrillation, on anticoagulation with Eliquis. 4. Nonischemic cardiomyopathy with ejection fraction of 20% to 25%. 5. Hyperkalemia. 6. Gastroesophageal reflux disease. 7. Hyperlipidemia. 8. Osteoarthritis. 9. Gouty arthritis. I do not believe patient has any cellulitis even the fifth toe. The patient will be discharged. I do not believe the patient will need any antibiotics and patient will be discharged. Patient will be discharged on colchicine 0.6 mg p.o. b.i.d. and [place] for pain. Patient will follow with primary care, newly established primary care physician Dr. Morrell as an outpatient. Follow with cardiology as an outpatient as scheduled. To follow with primary care physician in 3 to 7 days. Spent greater than 35 minutes in total discharge process.
== END 2016-03-22 16:00 | disposition home or self-care (01) ==
LOC: EC 10:45 → 4MS4W 15:10
PROVIDERS: ADMIT Internal Medicine; ATTEND Internal Medicine
DX: M10.071 Idiopathic gout, right ankle and foot (principal); M10.061 Idiopathic gout, right knee; D47.3 Essential (hemorrhagic) thrombocythemia; I48.0 Paroxysmal atrial fibrillation; I42.9 Cardiomyopathy, unspecified; E87.5 Hyperkalemia; K21.9 Gastro-esophageal reflux disease without esophagitis; E78.5 Hyperlipidemia, unspecified; M19.90 Unspecified osteoarthritis, unspecified site; I50.9 Heart failure, unspecified; H54.8 Legal blindness, as defined in USA; D72.829 Elevated white blood cell count, unspecified; Z79.01 Long term (current) use of anticoagulants; Z79.899 Other long term (current) drug therapy; Z80.8 Family history of malignant neoplasm of other organs or systems; Z80.3 Family history of malignant neoplasm of breast; Z82.3 Family history of stroke; Z82.49 Family history of ischemic heart disease and other diseases of the circulatory system
CPT/HCPCS: 36415; 80053; 80048; 85652; 82728; 83540; 83550; 83615; 84550; 85025 ×2; 86140 ×2; 86431; 86038; 99284; 96365; 96361 ×3; G0378 ×2; J0690 ×2; 96366

== ENCOUNTER 2016-06-18 09:47 | Emergency (ER) | payer OTHER ==
[2016-06-18 09:56] VITALS: BP 96/60; PULSE 86; RESP 20; TEMP 97.9
--- NOTE | 2016-06-18 10:46 | ED ---
General Adult HPI - General Chief complaint: Extremity Problem,Nontraumatic Stated complaint: Lt Foot Pain Time Seen by Provider: 06/18/16 10:03 Source: patient, RN notes reviewed Mode of arrival: ambulatory Limitations: physical limitation - History of Present Illness Initial comments: Patient 56-year-old male who presents emergency room today with a chief complaint of discoloration to his left foot. He does admit to a history of gout. He states he is currently being treated with cold symptoms steroids. Patient states that this morning when he woke up he noticed that his left foot had a blue color. Patient states the color has improved after he has been up moving around and ambulating. States there is no numbness or tingling. He does admit that he felt some numbness to his toes yesterday. States feeling much better at this time. He does admit to pain with any gout but he denies any other complaints at this time. Patient denies any recent fever, chills, shortness of breath, chest pain, back pain, nausea or vomiting, numbness or tingling, dysuria or hematuria, constipation or diarrhea, headaches or visual changes, or any other complaints. - Related Data Home Medications Medication Instructions Recorded Confirmed Allopurinol [Zyloprim] 100 mg PO DAILY 06/18/16 06/18/16 Hydroxyurea [Hydrea] 500 mg PO BID 06/18/16 06/18/16 Lisinopril [Zestril] 2.5 mg PO DAILY 06/18/16 06/18/16 Metoprolol Tartrate [Lopressor] 100 mg PO BID 06/18/16 06/18/16 Spironolactone [Aldactone] 25 mg PO DAILY 06/18/16 06/18/16 methylPREDNISolone Dose Pack 4 mg PO DIRECTED 06/18/16 06/18/16 [Medrol Dose Pack] traMADol HCL [Ultram] 50 mg PO Q6HR PRN 06/18/16 06/18/16 Previous Rx's Medication Instructions Recorded Apixaban [Eliquis] 5 mg PO BID #60 tab 03/08/16 Furosemide [Lasix] 40 mg PO DAILY #30 tab 03/08/16 Colchicine [Colcrys] 0.6 mg PO BID #20 tab 03/22/16 Allergies Allergy/AdvReac Type Severity Reaction Status Date / Time aspirin AdvReac Unknown Verified 06/18/16 09:56 Review of Systems ROS Statement: Those systems with pertinent positive or pertinent negative responses have been documented in the HPI. ROS Other: All systems not noted in ROS Statement are negative. Past Medical History Past Medical History: Atrial Fibrillation, Cancer, Heart Failure, GERD/Reflux, Hyperlipidemia, Osteoarthritis (OA) Additional Past Medical History / Comment(s): BORN W BLINDNESS / HAD SX ON OPTIC NERVE(LT EYE LEGALLY BLIND, cardiomyopathy. PT STATES " LOOSE TO WATERY STOOLS D/T HIS MEDICATIONS HE TAKES IS HIS NORM". Bone marrow cancer- chemotherapy History of Any Multi-Drug Resistant Organisms: None Reported Past Surgical History: Heart Catheterization Additional Past Surgical History / Comment(s): COLONOSCOPY/POLYPECTOMY(BENIGN), X3 EYE SX INFANT, JAW SX 1973, HIATAL HERNIA SX Past Anesthesia/Blood Transfusion Reactions: No Reported Reaction Past Psychological History: No Psychological Hx Reported Smoking Status: Never smoker Past Alcohol Use History: Occasional Past Drug Use History: None Reported - Past Family History Mother Family Medical History: Cancer Additional Family Medical History / Comment(s): BREAST/BONE CANCER. AUNT ALSO HAS BONE CANCER Father Family Medical History: CVA/TIA Additional Family Medical History / Comment(s): CABG General Exam - General Exam Comments Initial Comments: General: The patient is awake and alert, in no distress, and does not appear acutely ill. Eye: Pupils are equal, round and reactive to light, extra-ocular movements are intact. No nystagmus. There is normal conjunctiva bilaterally. No signs of icterus. Ears, nose, mouth and throat: There are moist mucous membranes and no oral lesions. Neck: The neck is supple, there is no tenderness or JVD. Cardiovascular: There is a regular rate and rhythm. No murmur, rub or gallop is appreciated. Respiratory: Lungs are clear to auscultation, respirations are non-labored, breath sounds are equal. No wheezes, stridor, rales, or rhonchi. Musculoskeletal: Range of motion. Marked swelling down into left foot. Patient does have tenderness to the posterior aspect of the left ankle. Shows full range of motion. Sensations are intact. Pulses equal bilaterally 2+. Cap refill less than 2 seconds. Strength 5/5. Neurological: A&O x 3. CN II-XII intact, There are no obvious motor or sensory deficits. Coordination appears grossly intact. Speech is normal. Skin: Skin is warm and dry and no rashes or lesions are noted. Psychiatric: Cooperative, appropriate mood & affect, normal judgment. Limitations: physical limitation Course Vital Signs 06/18/16 09:53 Temperature 97.9 F Pulse Rate 86 Respiratory 20 Rate Blood Pressure 96/60 O2 Sat by Pulse 99 Oximetry Medical Decision Making - Medical Decision Making Case discussed with attending physician Dr. Márquez. Patient has 2+ pulses equal bilaterally. Cap refill less than 2 seconds. Patient advised to follow-up with vascular surgeon. Advised return if any symptoms return. Patient and family at bedside state understanding and agreement. Disposition Clinical Impression: Vascular spasm Disposition: HOME SELF-CARE Condition: Stable Instructions: Leg Edema (ED) Additional Instructions: Please follow-up with vascular surgeon and family doctor over the next 1-2 days. Please return to emergency room if any symptoms increase or worsen or for any other concerns. Referrals: Adolfo Morrell MD [Primary Care Provider] - 1-2 days Zoya Wood MD [STAFF PHYSICIAN] - 1-2 days Time of Disposition: 10:43
== END 2016-06-18 11:02 | disposition home or self-care (01) ==
LOC: EC 09:47
DX: I73.9 Peripheral vascular disease, unspecified (principal); M10.9 Gout, unspecified; I48.91 Unspecified atrial fibrillation; I50.9 Heart failure, unspecified; E78.5 Hyperlipidemia, unspecified; M19.90 Unspecified osteoarthritis, unspecified site; I42.9 Cardiomyopathy, unspecified; H54.42 Blindness, left eye, normal vision right eye; Z95.5 Presence of coronary angioplasty implant and graft; Z88.6 Allergy status to analgesic agent; Z79.899 Other long term (current) drug therapy
CPT/HCPCS: 99283

== ENCOUNTER 2016-08-21 06:30 | Day surgery (SDC) | payer OTHER ==
[2016-08-18 10:11] VITALS: BMI 19.6
[~2016-08-21 06:30] MED LIST: HYDROmorphone 1 MG/ML 1 ML SYRINGE IVP PRN; LACTATED RINGERS 1,000 ML IV SCH; LIDOCAINE 1% 20 ML VIAL (10MG/ML) FOR IV START INTRADERMA PRN; ONDANSETRON 4 MG/2 ML VIAL IVP ONE; SODIUM CHLORIDE 0.9% 1,000 ML IV SCH
[2016-08-21 07:02] VITALS: TEMP 98
[2016-08-21] MEDS ORDERED: LIDOCAINE 1% INJ 10MG/ML (20 ML MDV) ONE (07:34)
[2016-08-21] MEDS ORDERED: ETOMIDATE 2 MG/ML 10 ML VIAL ONE (07:34)
[2016-08-21 07:35] LABS: Anisocytosis Moderate; Basophils # (A) 0.1 k/uL (0-0.2); Basophils % (A) 1 %; CH 38.1; CHCM 34.2; Eosinophils # (A) 0.1 k/uL (0-0.7); Eosinophils % (A) 1 %; HCT 41.3 % (39.0-53.0); HGB 13.6 gm/dL (13.0-17.5); Luc # (Auto) 0.18; Luc % (Auto) 2; Lymphocytes # (A) 1.7 k/uL (1.0-4.8); Lymphocytes % (A) 15 %; MCH 37.1 pg (25.0-35.0); MCHC 33.1 g/dL (31.0-37.0); MCV 112.3 fL (80.0-100.0); Macrocytosis Marked; Mean Platelet Volume 7.9; Monocytes # (A) 0.4 k/uL (0-1.0); Monocytes % (A) 3 %; Neutrophils # (A) 8.7 k/uL (1.3-7.7); Neutrophils % (A) 78 %; RBC 3.67 m/uL (4.30-5.90); RDW 23.9 % (11.5-15.5); WBC 11.2 k/uL (3.8-10.6); WBC (Perox) 11.06
[2016-08-21 07:36] VITALS: RESP 16
[2016-08-21 07:38] LABS: Anion Gap 9 mmol/L; Blood Urea Nitrogen 20 mg/dL (9-20); Calcium 9.6 mg/dL (8.4-10.2); Carbon Dioxide 30 mmol/L (22-30); Chloride 102 mmol/L (98-107); Glucose 87 mg/dL (74-99); Non-African American GFR(MDRD) >60 (>60 ml/min/1.73 sqM); Potassium 4.9 mmol/L (3.5-5.1); Sodium 141 mmol/L (137-145)
[2016-08-21 08:35] LABS: Hypersegmented Neutrophils Present
[2016-08-21 09:16] VITALS: BP 98/57; PULSE 58
--- NOTE | 2016-08-21 11:37 | CE ---
DATE OF SERVICE: 08/21/2016 CARDIOVERSION: PERFORMING PHYSICIAN: Anoop Ortega MD, painting supervisor. PROCEDURE PERFORMED: Cardioversion. INDICATION: This is a pleasant 56-year-old gentleman who is known to have severe ischemic cardiomyopathy as well as atrial fibrillation was referred to have AICD for primary prevention. He was seen and evaluated by Dr. Ramírez who recommended proceeding with a cardioversion and give the patient a chance for the LV to improve. COMPLICATIONS: None. LEVEL OF SEDATION: Deep sedation was performed with a INFORMATION STRATEGIST in the room. PROCEDURE DESCRIPTION: After obtaining an informed consent, the patient was brought to the cardioversion suite. The patient was given propofol. Subsequently, I did successful cardioversion of atrial fibrillation into normal sinus mechanism using 200 joules on first attempt. CONCLUSION: Successful cardioversion of atrial fibrillation into normal sinus mechanism using 200 joules on first attempt.
== END 2016-08-21 09:28 | disposition home or self-care (01) ==
LOC: CATHCVL 06:30
PROVIDERS: ATTEND Internal Medicine Interventional Cardiology
DX: I48.0 Paroxysmal atrial fibrillation (principal); I10 Essential (primary) hypertension; Z82.49 Family history of ischemic heart disease and other diseases of the circulatory system; Z79.899 Other long term (current) drug therapy
CPT/HCPCS: 93005; 92960; 80048; 85025; J2001

== ENCOUNTER 2017-04-26 10:01 | Observation (INO) | payer OTHER ==
[2017-04-26] MEDS ORDERED: SODIUM CHLORIDE 0.9% 1,000 ML IV STA (10:24)
[2017-04-26] MEDS ORDERED: DILTIAZEM 5 MG/ML 5 ML VIAL IVP STA (10:25)
[2017-04-26] MEDS ORDERED: DILTIAZEM 125 MG in SODIUM CHLORIDE 0.9% 100 ML IV ONE (10:25)
--- NOTE | 2017-04-26 10:27 | ED ---
General Adult HPI - General Chief complaint: Chest Pain Stated complaint: Chest pain Time Seen by Provider: 04/26/17 10:16 Source: patient, RN notes reviewed Mode of arrival: ambulatory Limitations: no limitations - History of Present Illness Initial comments: Patient is a pleasant 57-year-old male presenting to the emergency department with lightheadedness and chest discomfort and dyspnea. Symptoms started around 4:30 this morning. Patient has had similar symptoms multiple times previously associated with atrial fibrillation. Patient is an Eliquis for this. No palpitations however patient does feel his heart beating in his ear. Symptoms are similar to previous atrial fibrillation however symptoms are somewhat worse this time. Patient has mild pressure in his chest. Patient does feel short of breath. - Related Data Home Medications Medication Instructions Recorded Confirmed Allopurinol [Zyloprim] 100 mg PO DAILY 06/18/16 04/26/17 Hydroxyurea [Hydrea] 500 mg PO BID 06/18/16 04/26/17 Lisinopril [Zestril] 2.5 mg PO DAILY 06/18/16 04/26/17 Metoprolol Tartrate [Lopressor] 100 mg PO BID 06/18/16 04/26/17 traMADol HCL [Ultram] 50 mg PO Q6HR PRN 06/18/16 04/26/17 Colchicine [Colcrys] 0.6 mg PO DAILY 04/26/17 04/26/17 Previous Rx's Medication Instructions Recorded Apixaban [Eliquis] 5 mg PO BID #60 tab 03/08/16 Furosemide [Lasix] 40 mg PO DAILY #30 tab 03/08/16 Allergies Allergy/AdvReac Type Severity Reaction Status Date / Time No Known Allergies Allergy Verified 04/26/17 10:53 Review of Systems ROS Statement: Those systems with pertinent positive or pertinent negative responses have been documented in the HPI. ROS Other: All systems not noted in ROS Statement are negative. Constitutional: Denies: fever Eyes: Denies: eye pain ENT: Denies: ear pain Respiratory: Reports: dyspnea. Denies: cough Cardiovascular: Reports: chest pain Endocrine: Denies: fatigue Gastrointestinal: Denies: abdominal pain Genitourinary: Denies: dysuria Musculoskeletal: Denies: back pain Skin: Denies: rash Neurological: Denies: weakness Past Medical History Past Medical History: Atrial Fibrillation, Cancer, Heart Failure, GERD/Reflux, Hyperlipidemia, Hypertension, Osteoarthritis (OA) Additional Past Medical History / Comment(s): BORN W BLINDNESS / INFANT HAD SX ON OPTIC NERVE LEGALLY BLIND LEFT EYEcardiomyopathy. Bone marrow cancer- chemotherapy,BONE MARROW CANCER History of Any Multi-Drug Resistant Organisms: None Reported Past Surgical History: Heart Catheterization Additional Past Surgical History / Comment(s): COLONOSCOPY/POLYPECTOMY(BENIGN), X3 EYE SX , JAW SX 1973, HIATAL HERNIA , Past Anesthesia/Blood Transfusion Reactions: No Reported Reaction Past Psychological History: No Psychological Hx Reported Smoking Status: Never smoker Past Alcohol Use History: Occasional Past Drug Use History: None Reported - Past Family History Mother Family Medical History: Cancer Additional Family Medical History / Comment(s): BREAST/BONE CANCER. Father Family Medical History: CVA/TIA Additional Family Medical History / Comment(s): CABG General Exam Limitations: no limitations General appearance: alert, in no apparent distress Head exam: Present: atraumatic Eye exam: Present: normal appearance, nystagmus (Patient states this is normal from previous eye surgeries) ENT exam: Present: normal exam Neck exam: Present: normal inspection Respiratory exam: Present: normal lung sounds bilaterally Cardiovascular Exam: Present: tachycardia, irregular rhythm GI/Abdominal exam: Present: soft. Absent: tenderness Extremities exam: Present: normal inspection. Absent: pedal edema, calf tenderness Neurological exam: Present: alert Psychiatric exam: Present: normal affect, normal mood Skin exam: Present: normal color Course Vital Signs 04/26/17 04/26/17 04/26/17 10:05 10:54 11:41 Temperature 97.9 F Pulse Rate 75 115 H 82 Respiratory 20 18 16 Rate Blood Pressure 110/63 100/64 90/66 O2 Sat by Pulse 97 100 100 Oximetry 04/26/17 12:01 Temperature Pulse Rate 82 Respiratory 18 Rate Blood Pressure 97/62 O2 Sat by Pulse 100 Oximetry EKG Findings - EKG Comments: EKG Findings:: A. fib with RVR, rate 143. QRS 88. QT 276. QTc 425. Normal axis. LVH criteria. No acute ST change. Medical Decision Making - Medical Decision Making Patient reevaluated and does feel somewhat better. Heart rate between 101 20. Patient and family updated on results and plan. Case was discussed in detail with Dr. Newman, who will admit for Dr. Nidia hamilton. - Lab Data Result diagrams: 04/26/17 10:23 04/26/17 10:23 Lab Results 04/26/17 04/26/17 04/26/17 Range/Units 10:23 10:23 10:23 WBC 9.5 (3.8-10.6) k/uL RBC 3.30 L (4.30-5.90) m/uL Hgb 14.7 (13.0-17.5) gm/dL Hct 42.2 (39.0-53.0) % MCV 127.9 H (80.0-100.0) fL MCH 44.5 H (25.0-35.0) pg MCHC 34.8 (31.0-37.0) g/dL RDW 13.2 (11.5-15.5) % Plt Count 351 (150-450) k/uL Neutrophils % 77 % Lymphocytes % 14 % Monocytes % 5 % Eosinophils % 1 % Basophils % 1 % Neutrophils # 7.3 (1.3-7.7) k/uL Lymphocytes # 1.3 (1.0-4.8) k/uL Monocytes # 0.5 (0-1.0) k/uL Eosinophils # 0.1 (0-0.7) k/uL Basophils # 0.1 (0-0.2) k/uL Poikilocytosis Slight Macrocytosis Marked Stomatocytes Present PT (9.0-12.0) sec INR (<1.2) APTT (22.0-30.0) sec Sodium 142 (137-145) mmol/L Potassium 4.3 (3.5-5.1) mmol/L Chloride 101 (98-107) mmol/L Carbon Dioxide 27 (22-30) mmol/L Anion Gap 14 mmol/L BUN 18 (9-20) mg/dL Creatinine 1.00 (0.66-1.25) mg/dL Est GFR (MDRD) Af Amer >60 (>60 ml/min/1.73 sqM) Est GFR (MDRD) Non-Af >60 (>60 ml/min/1.73 sqM) Glucose 109 H (74-99) mg/dL Calcium 10.2 (8.4-10.2) mg/dL Magnesium 2.0 (1.6-2.3) mg/dL Total Bilirubin 1.9 H (0.2-1.3) mg/dL AST 23 (17-59) U/L ALT 26 (21-72) U/L Alkaline Phosphatase 95 (38-126) U/L Total Creatine Kinase 54 L (55-170) U/L CK-MB (CK-2) 1.5 (0.0-2.4) ng/mL CK-MB (CK-2) Rel Index 2.8 Troponin I <0.012 (0.000-0.034) ng/mL Total Protein 7.4 (6.3-8.2) g/dL Albumin 4.5 (3.5-5.0) g/dL TSH 1.080 (0.465-4.680) mIU/L Free T4 1.18 (0.78-2.19) ng/dL Free T3 pg/mL 4.2 (2.8-5.3) pg/ml 04/26/17 Range/Units 10:23 WBC (3.8-10.6) k/uL RBC (4.30-5.90) m/uL Hgb (13.0-17.5) gm/dL Hct (39.0-53.0) % MCV (80.0-100.0) fL MCH (25.0-35.0) pg MCHC (31.0-37.0) g/dL RDW (11.5-15.5) % Plt Count (150-450) k/uL Neutrophils % % Lymphocytes % % Monocytes % % Eosinophils % % Basophils % % Neutrophils # (1.3-7.7) k/uL Lymphocytes # (1.0-4.8) k/uL Monocytes # (0-1.0) k/uL Eosinophils # (0-0.7) k/uL Basophils # (0-0.2) k/uL Poikilocytosis Macrocytosis Stomatocytes PT 10.5 (9.0-12.0) sec INR 1.1 (<1.2) APTT 24.9 (22.0-30.0) sec Sodium (137-145) mmol/L Potassium (3.5-5.1) mmol/L Chloride (98-107) mmol/L Carbon Dioxide (22-30) mmol/L Anion Gap mmol/L BUN (9-20) mg/dL Creatinine (0.66-1.25) mg/dL Est GFR (MDRD) Af Amer (>60 ml/min/1.73 sqM) Est GFR (MDRD) Non-Af (>60 ml/min/1.73 sqM) Glucose (74-99) mg/dL Calcium (8.4-10.2) mg/dL Magnesium (1.6-2.3) mg/dL Total Bilirubin (0.2-1.3) mg/dL AST (17-59) U/L ALT (21-72) U/L Alkaline Phosphatase (38-126) U/L Total Creatine Kinase (55-170) U/L CK-MB (CK-2) (0.0-2.4) ng/mL CK-MB (CK-2) Rel Index Troponin I (0.000-0.034) ng/mL Total Protein (6.3-8.2) g/dL Albumin (3.5-5.0) g/dL TSH (0.465-4.680) mIU/L Free T4 (0.78-2.19) ng/dL Free T3 pg/mL (2.8-5.3) pg/ml - Radiology Data Radiology results: image reviewed (Chest x-ray shows chronic changes without acute pulmonary disease.) Critical Care Time Critical Care Time: Yes Total Critical Care Time: 31 Disposition Clinical Impression: Atrial fibrillation with RVR Disposition: ADMITTED IP TO THIS HOSP Referrals: Adolfo Morrell MD [Primary Care Provider] - 1-2 days Decision Time: 12:24
[2017-04-26 10:42] LABS: Basophils # (A) 0.1 k/uL (0-0.2); Basophils % (A) 1 %; Eosinophils # (A) 0.1 k/uL (0-0.7); Eosinophils % (A) 1 %; HCT 42.2 % (39.0-53.0); HGB 14.7 gm/dL (13.0-17.5); Lymphocytes # (A) 1.3 k/uL (1.0-4.8); Lymphocytes % (A) 14 %; MCHC 34.8 g/dL (31.0-37.0); MCV 127.9 fL (80.0-100.0); Macrocytosis Marked; Mean Platelet Volume 7.6; Monocytes # (A) 0.5 k/uL (0-1.0); Monocytes % (A) 5 %; Neutrophils # (A) 7.3 k/uL (1.3-7.7); Neutrophils % (A) 77 %; Platelet Count 351 k/uL (150-450); Poikilocytosis Slight; RDW 13.2 % (11.5-15.5); WBC 9.5 k/uL (3.8-10.6)
[2017-04-26 10:44] LABS: INR 1.1 (<1.2); Partial Thromboplastin Time 24.9 sec (22.0-30.0); Prothrombin Time 10.5 sec (9.0-12.0)
[2017-04-26 10:45] LABS: MCH 44.5 pg (25.0-35.0)
[2017-04-26 10:50] LABS: ALT 26 U/L (21-72); AST 23 U/L (17-59); Albumin 4.5 g/dL (3.5-5.0); Alkaline Phosphatase 95 U/L (38-126); Anion Gap 14 mmol/L; Blood Urea Nitrogen 18 mg/dL (9-20); Calcium 10.2 mg/dL (8.4-10.2); Carbon Dioxide 27 mmol/L (22-30); Chloride 101 mmol/L (98-107); Glucose 109 mg/dL (74-99); Potassium 4.3 mmol/L (3.5-5.1); Sodium 142 mmol/L (137-145); Total Bilirubin 1.9 mg/dL (0.2-1.3); Total Protein 7.4 g/dL (6.3-8.2)
[2017-04-26 10:55] LABS: Creatine Kinase 54 U/L (55-170)
--- NOTE | 2017-04-26 10:59 | XR ---
EXAMINATION TYPE: XR chest 1V portable DATE OF EXAM: 04/26/2017 HISTORY: Shortness of breath. COMPARISON: 03/03/2016 TECHNIQUE: Single view of the chest is submitted. FINDINGS: Demonstrated are scattered senescent parenchymal change. There is no evidence for focal infiltrate. The heart is stable. Hilar and mediastinal structures are within normal limits. Degenerative changes are seen of the dorsal spine. IMPRESSION: 1. Chronic changes without evidence for acute pulmonary disease.
[2017-04-26 11:06] LABS: T4, Free (Free Thyroxine) 1.18 ng/dL (0.78-2.19)
[2017-04-26 11:08] LABS: Creatine Kinase MB 1.5 ng/mL (0.0-2.4); Troponin I <0.012 ng/mL (0.000-0.034)
[2017-04-26 11:31] LABS: Stomatocytes Present
[2017-04-26] MEDS ORDERED: SODIUM CHLORIDE 0.9% 500 ML IV ONE (11:43)
[2017-04-26] MEDS ORDERED: NALOXONE 0.4 MG/ML 1 ML VIAL IV PRN (12:24)
[2017-04-26] MEDS ORDERED: SODIUM CHLORIDE 0.9% 1,000 ML IV SCH (12:30)
[2017-04-26] MEDS ORDERED: traMADol 50 MG TAB PO PRN (13:42)
--- NOTE | 2017-04-26 16:08 | P.HPIM ---
History of Present Illness H&P Date: 04/26/17 Chief Complaint: chest pain 7 years old male patient of Dr. Salas with a past medical history of atrial fibrillation status post ablation, nonischemic cardiomyopathy secondary to atrial fibrillation, history of bone cancer currently on chemotherapy, hypertension, hyperlipidemia presents in with shortness of breath associated with chest pain that started at 4:30 in the morning when patient woke up to let his dog out. Patient noticed that his heart rate was high but since his breathing difficulty worsened when he started having substernal chest pain associated with hot sweats patient decided to come to the ER. Patient was found to be in atrial fibrillation with a heart rate running in [address] or T-wave changes seen on the EKG. Initiated on Cardizem with improvement in heartrate. Cardiology consulted patient elliquis was initiated. Review of Systems Constitutional: Denies chills, Denies fever, Denies lethargy, Denies malaise, Denies poor appetite, Denies weakness, Denies weight loss Eyes: denies decreased vision, denies diplopia, denies discharge, denies pain Ears: deny: decreased hearing Ears, nose, mouth and throat: Denies dental pain, Denies headache, Denies nasal discharge, Denies nose pain Cardiovascular: Endorses chest pain, Denies decreased exercise tolerance, Denies edema, Denies high blood pressure, endorses irregular heart beat, Denies palpitations, Denies paroxysmal nocturnal dyspnea, Denies rapid heart beat, Denies shortness of breath Respiratory: Denies congestion, Denies cough, Denies cough with sputum, endorses dyspnea, Denies home oxygen, Denies wheezing Gastrointestinal: Denies abdominal pain, Denies change in bowel habits, Denies coffee ground emesis, Denies early satiety, Denies excessive gas, Denies heartburn, Denies hematemesis, Denies hematochezia, Denies loss of appetite, Denies nausea, Denies vomiting Genitourinary: Denies dysuria, Denies flank pain, Denies kidney stones, Denies menorrhagia, Denies urgency, Denies urinary frequency Musculoskeletal: Denies gait dysfunction, Denies limitation of motion, Denies morning stiffness, Denies muscle cramps Integumentary: Denies rash, Denies wounds, Denies brittle nails, Denies change in hair/nails, Denies darkening of skin Neurological: Denies balance difficulties, Denies change in speech, Denies double vision, Denies gait dysfunction, Denies loss of vision, Denies motor disturbance, Denies numbness, Denies paralysis, Denies paresthesias, Denies seizures Psychiatric: Denies anxiety, Denies depression Endocrine: Denies excessive sweating, Denies excessive thirst, Denies high blood sugars, Denies palpitations Hematologic/Lymphatic: Denies easy bruising, Denies lymphadenopathy Past Medical History Past Medical History: Atrial Fibrillation, Cancer, Heart Failure, GERD/Reflux, Hyperlipidemia, Hypertension, Osteoarthritis (OA) Additional Past Medical History / Comment(s): Afig with past RVR, nonischemic cardiomyopathy, 07/2016 diagnosed with bone marrow cancer-takes oral chemo daily , gouty arthiritis, 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 History of Any Multi-Drug Resistant Organisms: None Reported Past Surgical History: Heart Catheterization, Orthopedic Surgery Additional Past Surgical History / Comment(s): 08/21/16 cardioversion, 03/07/16 cardiac cath, colonoscopy with benign polypectomy, EGD due to hiatal hernia obstruction, jaw surgery, L eye optic nerve surgery twice, R eye optic nerve surgery once. Past Anesthesia/Blood Transfusion Reactions: No Reported Reaction Smoking Status: Never smoker - Past Family History Mother Family Medical History: Cancer Additional Family Medical History / Comment(s): BREAST/BONE CANCER. Father Family Medical History: Coronary Artery Disease (CAD), CVA/TIA Additional Family Medical History / Comment(s): Father had CABG and a CVA post op that took his life. Medications and Allergies Home Medications Medication Instructions Recorded Confirmed Type Apixaban [Eliquis] 5 mg PO BID #60 tab 03/08/16 04/26/17 Rx Furosemide [Lasix] 40 mg PO DAILY #30 tab 03/08/16 04/26/17 Rx Allopurinol [Zyloprim] 100 mg PO DAILY 06/18/16 04/26/17 History Hydroxyurea [Hydrea] 500 mg PO BID 06/18/16 04/26/17 History Lisinopril [Zestril] 2.5 mg PO DAILY 06/18/16 04/26/17 History Metoprolol Tartrate [Lopressor] 100 mg PO BID 06/18/16 04/26/17 History traMADol HCL [Ultram] 50 mg PO Q6HR PRN 06/18/16 04/26/17 History Colchicine [Colcrys] 0.6 mg PO DAILY 04/26/17 04/26/17 History Allergies Allergy/AdvReac Type Severity Reaction Status Date / Time No Known Allergies Allergy Verified 04/26/17 10:53 Physical Exam Vitals: Vital Signs Temp Pulse Resp BP Pulse Ox 04/26/17 12:53 86 18 103/71 100 04/26/17 12:01 82 18 97/62 100 04/26/17 11:41 82 16 90/66 100 04/26/17 10:54 115 H 18 100/64 100 04/26/17 10:05 97.9 F 75 20 110/63 97 Intake and Output 04/26/17 04/26/17 04/26/17 06:59 14:59 22:59 Other: Weight 71.668 kg Patient Weight 04/27/17 06:59 Weight 71.668 kg - Constitutional General appearance: average body habitus, no acute distress - EENT Eyes: EOMI, PERRLA, no photophobia, no ptosis, no scleral icterus ENT: normal oropharynx - Neck Neck: no lymphadenopathy, normal ROM, no rigidity Carotids: bilateral: upstroke normal Thyroid: bilateral: normal size - Respiratory Respiratory: bilateral: CTA, negative: diminished, dullness, rales, rhonchi, wheezing - Cardiovascular Rhythm: irregularly irregular Heart sounds: normal: S1, S2 Abnormal Heart Sounds: no systolic murmur, no diastolic murmur, no S3 Gallop, no S4 Gallop ankle Peripheral Edema: bilateral: None radial pulse Peripheral Pulses: bilateral: Normal - Gastrointestinal General gastrointestinal: no distended, normal bowel sounds, soft - Integumentary Integumentary: no calor, no cyanotic, no decreased turgor, normal turgor - Neurologic Neurologic: CNII-XII intact - Musculoskeletal Musculoskeletal: gait normal - Psychiatric Psychiatric: A&O x's 3 Results CBC & Chem 7: 04/26/17 10:23 04/26/17 10:23 Labs: Abnormal Lab Results - Last 24 Hours (Table) 04/26/17 04/26/17 04/26/17 Range/Units 10:23 10:23 10:23 RBC 3.30 L (4.30-5.90) m/uL MCV 127.9 H (80.0-100.0) fL MCH 44.5 H (25.0-35.0) pg Glucose 109 H (74-99) mg/dL Total Bilirubin 1.9 H (0.2-1.3) mg/dL Total Creatine Kinase 54 L (55-170) U/L Thrombosis Risk Factor Assmnt - DVT/VTE Prophylaxis DVT/VTE Prophylaxis: Pharmacologic Prophylaxis ordered - Choose All That Apply Any of the Below Risk Factors Present?: Yes Each Factor Represents 1 point: Age 41-60 years Other Risk Factors: Yes Each Risk Factor Represents 2 Points: Malignancy Other congenital or acquired thrombophilia - If yes, enter type in comment: No Thrombosis Risk Factor Assessment Total Risk Factor Score: 3 Thrombosis Risk Factor Assessment Level: Moderate Risk Assessment and Plan Plan: #1 Atrial fibrillation with RVR on this. We will titrate down and diltiazem will start start patient on metoprolol. #2 nonischemic cardiomyopathy with last ejection fraction reported in July 2016 been 25% but patient stated has improved since then. 8 echo pending continue Lasix lisinopril and metoprolol 100 mg twice a day. #3 gout continue allopurinol at the current dose of 100 mg daily along with colchicine 0.6 mg by mouth daily #4 essential thrombocythemia -continue hydroxy urea. Dr. Byrne consulted. 5 DVT prophylaxis with eliquis #6 GI prophylaxis with Pepcid 20 mg twice a day #7 CODE STATUS full code Disposition anticipate 2 inpatient nights in the hospital
[2017-04-26] MEDS: FUROSEMIDE 40 MG TAB PO SCH (17:05)
[2017-04-26] MEDS: ALLOPURINOL 100 MG TAB PO SCH (17:05)
[2017-04-26] MEDS: APIXABAN 5 MG TAB PO SCH ×2 (17:05→20:27)
[2017-04-26] MEDS: HYDROXYUREA 500 MG CAP PO SCH ×2 (17:05→20:27)
[2017-04-26] MEDS: METOPROLOL TARTRATE 50 MG TAB PO SCH ×2 (17:06→22:59)
[2017-04-26] MEDS: LISINOPRIL 2.5 MG TAB PO SCH (17:06)
[2017-04-26 17:10] LABS: Bilirubin, Delta 0.5 mg/dL (0.0-0.2); Bilirubin,Unconjugated 1.4 mg/dL (0.0-1.1); Total Bilirubin 1.9 mg/dL (0.2-1.3)
[2017-04-26] MEDS ORDERED: DILTIAZEM 125 MG in SODIUM CHLORIDE 0.9% 100 ML IV SCH (19:30)
[2017-04-27 06:17] LABS: Basophils % (A) 1 %; Eosinophils # (A) 0.1 k/uL (0-0.7); Eosinophils % (A) 1 %; HGB 11.7 gm/dL (13.0-17.5); Lymphocytes # (A) 1.2 k/uL (1.0-4.8); Lymphocytes % (A) 19 %; MCHC 33.4 g/dL (31.0-37.0); MCV 131.4 fL (80.0-100.0); Macrocytosis Marked; Mean Platelet Volume 7.5; Monocytes # (A) 0.3 k/uL (0-1.0); Monocytes % (A) 4 %; Neutrophils # (A) 4.7 k/uL (1.3-7.7); Neutrophils % (A) 74 %; Platelet Count 255 k/uL (150-450); Poikilocytosis Slight; RBC 2.66 m/uL (4.30-5.90); RDW 13.3 % (11.5-15.5); WBC 6.4 k/uL (3.8-10.6)
[2017-04-27 06:42] LABS: ALT 21 U/L (21-72); AST 23 U/L (17-59); Albumin 3.6 g/dL (3.5-5.0); Alkaline Phosphatase 69 U/L (38-126); Anion Gap 7 mmol/L; Blood Urea Nitrogen 19 mg/dL (9-20); Calcium 9.3 mg/dL (8.4-10.2); Carbon Dioxide 31 mmol/L (22-30); Chloride 102 mmol/L (98-107); Glucose 100 mg/dL (74-99); Potassium 4.1 mmol/L (3.5-5.1); Sodium 140 mmol/L (137-145); Total Protein 5.9 g/dL (6.3-8.2)
[2017-04-27 07:37] LABS: MCH 43.9 pg (25.0-35.0)
[2017-04-27] MEDS ORDERED: COLCHICINE 0.6 MG TAB PO SCH (09:00)
[2017-04-27] MEDS: ALLOPURINOL 100 MG TAB PO SCH (09:27)
[2017-04-27] MEDS: APIXABAN 5 MG TAB PO SCH (09:27)
[2017-04-27] MEDS: FUROSEMIDE 40 MG TAB PO SCH (09:28)
[2017-04-27] MEDS: LISINOPRIL 2.5 MG TAB PO SCH (09:28)
[2017-04-27] MEDS: HYDROXYUREA 500 MG CAP PO SCH (09:28)
[2017-04-27] MEDS: METOPROLOL TARTRATE 50 MG TAB PO SCH (09:28)
[2017-04-27 09:46] VITALS: RESP 16; TEMP 97.2
--- NOTE | 2017-04-27 09:50 | P.CRDCN ---
History of Present Illness Consult date: 04/27/17 Requesting physician: Cynthia Hensley Consult reason: atrial fibrillation Chief complaint: dizziness, lightheadedness, and heart racing History of present illness: this is a pleasant 57-year-old gentleman who follows regularly with Dr. Hensley in the office. He has a known history of hypertension, paroxysmal atrial fibrillation with prior cardioversion, nonischemic cardiomyopathy, patient underwent a cardiac catheterization in February of last year which revealed that the left main does not exist in the LAD and left circumflex originate from the aorta. Dominant left circumflex system, mild nonobstructive coronary artery disease. He also had an echo cardiogram with Doppler study performed at that time which revealed an ejection fraction of 20-25%. Patient presents to the hospital with symptoms of dizziness and lightheadedness with associated heart racing. EKG on admission here showed atrial fibrillation with a rapid ventricular response. Chest x-ray revealed chronic changes without evidence for acute pulmonary disease. Blood pressure on arrival here 110/60, 97 % on room air.heart rate was in the 140s at that time. Patient was initiated on IV Cardizem drip. He is on Eliquis for anticoagulation.White blood cell count is normal, hemoglobin on admission 14.7, 11.7 this morning. Platelet count 255. Sodium 140, potassium 4.1, BUN 19, creatinine 0.9.magnesium level 2.0,unconjugated bilirubin 1.4.TSH 1.08, free T4 1 0.1, free T3 4 0.2. Echocardiogram with Doppler study was performed and remains pending. Patient earlier this morning converted to normal sinus rhythm, continues to be in normal sinus rhythm with a heart rate in the 60s. At the time of my examination this morning he feels well, denies any palpitations rate stable. No dizziness or lightheadedness. 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 History of Any Multi-Drug Resistant Organisms: None Reported Past Surgical History: Heart Catheterization, Orthopedic Surgery Additional Past Surgical History / Comment(s): 08/21/16 cardioversion, 03/07/16 cardiac cath, colonoscopy with benign polypectomy, EGD due to hiatal hernia obstruction, jaw surgery, L eye optic nerve surgery twice, R eye optic nerve surgery once. Past Anesthesia/Blood Transfusion Reactions: No Reported Reaction Smoking Status: Never smoker - Past Family History Mother Family Medical History: Cancer Additional Family Medical History / Comment(s): BREAST/BONE CANCER. Father Family Medical History: Coronary Artery Disease (CAD), CVA/TIA Additional Family Medical History / Comment(s): Father had CABG and a CVA post op that took his life. Medications and Allergies Home Medications Medication Instructions Recorded Confirmed Type Apixaban [Eliquis] 5 mg PO BID #60 tab 03/08/16 04/26/17 Rx Furosemide [Lasix] 40 mg PO DAILY #30 tab 03/08/16 04/26/17 Rx Allopurinol [Zyloprim] 100 mg PO DAILY 06/18/16 04/26/17 History Hydroxyurea [Hydrea] 500 mg PO BID 06/18/16 04/26/17 History Lisinopril [Zestril] 2.5 mg PO DAILY 06/18/16 04/26/17 History Metoprolol Tartrate [Lopressor] 100 mg PO BID 06/18/16 04/26/17 History traMADol HCL [Ultram] 50 mg PO Q6HR PRN 06/18/16 04/26/17 History Colchicine [Colcrys] 0.6 mg PO DAILY 04/26/17 04/26/17 History Allergies Allergy/AdvReac Type Severity Reaction Status Date / Time No Known Allergies Allergy Verified 04/26/17 10:53 Physical Exam Vitals: Vital Signs Temp Pulse Pulse Resp BP BP Pulse Ox 04/27/17 04:00 60 17 100/58 100 04/27/17 00:00 61 16 87/54 99 04/26/17 20:00 97.1 F L 58 L 16 81/50 98 04/26/17 16:55 96.8 F L 94 16 101/58 100 04/26/17 13:15 96.7 F L 85 16 126/69 100 04/26/17 12:53 86 18 103/71 100 04/26/17 12:01 82 18 97/62 100 04/26/17 11:41 82 16 90/66 100 04/26/17 10:54 115 H 18 100/64 100 04/26/17 10:05 97.9 F 75 20 110/63 97 Intake and Output 04/26/17 04/27/17 04/27/17 22:59 06:59 14:59 Intake Total 630 375 180 Balance 630 375 180 Intake: IV 375 Sodium Chloride 0.9% 1, 375 000 ml @ 75 mls/hr IV . [id number] JOSAFAT Rx#:[id number] Intake, IV Titration 450 Amount Sodium Chloride 0.9% 1, 450 000 ml @ 75 mls/hr IV . [id number] JOSFAAT Rx#:[id number] Oral 180 180 Other: Voiding Method Toilet Toilet # Voids 1 1 Weight 67.5 kg PHYSICAL EXAMINATION: HEENT: [Head is atraumatic, normocephalic. Pupils equal, round. Neck is supple. There is no elevated jugular venous pressure.] HEART EXAMINATION: [Heart S1, S2 normal. No murmur or gallop heard.] CHEST EXAMINATION:[ Lungs are clear to auscultation and precussion. No chest wall tenderness is noted on palpation or with deep breathing.] ABDOMEN: [ Soft, nontender. Bowel sounds are heard. No organomegaly noted]. EXTREMITIES:[ 2+ peripheral pulses with no evidence of peripheral edema and no calf tenderness noted]. NEUROLOGIC [patient is awake, alert and oriented -3.] . Results 04/27/17 05:25 04/27/17 05:25 Cardiac Enzymes 04/26/17 04/26/17 04/27/17 Range/Units 10:23 10:23 05:25 AST 23 23 (17-59) U/L CK-MB (CK-2) 1.5 (0.0-2.4) ng/mL Troponin I <0.012 (0.000-0.034) ng/mL Coagulation 04/26/17 Range/Units 10:23 PT 10.5 (9.0-12.0) sec APTT 24.9 (22.0-30.0) sec CBC 04/26/17 04/27/17 Range/Units 10:23 05:25 WBC 9.5 6.4 (3.8-10.6) k/uL RBC 3.30 L 2.66 L (4.30-5.90) m/uL Hgb 14.7 11.7 L D (13.0-17.5) gm/dL Hct 42.2 35.0 L (39.0-53.0) % Plt Count 351 255 (150-450) k/uL Comprehensive Metabolic Panel 04/26/17 04/26/17 04/27/17 Range/Units 10:23 10:23 05:25 Sodium 142 140 (137-145) mmol/L Potassium 4.3 4.1 (3.5-5.1) mmol/L Chloride 101 102 (98-107) mmol/L Carbon Dioxide 27 31 H (22-30) mmol/L BUN 18 19 (9-20) mg/dL Creatinine 1.00 0.90 (0.66-1.25) mg/dL Glucose 109 H 100 H (74-99) mg/dL Calcium 10.2 9.3 (8.4-10.2) mg/dL Unconjugated Bilirubin 1.4 H (0.0-1.1) mg/dL AST 23 23 (17-59) U/L ALT 26 21 (21-72) U/L Alkaline Phosphatase 95 69 (38-126) U/L Total Protein 7.4 5.9 L (6.3-8.2) g/dL Albumin 4.5 3.6 (3.5-5.0) g/dL Current Medications Generic Name Dose Route Start Last Admin Trade Name Mina PRN Reason Stop Dose Admin Allopurinol 100 mg 04/26/17 14:00 04/27/17 09:27 Zyloprim PO 100 mg DAILY JOSAFAT Administration Apixaban 5 mg 04/26/17 14:00 04/27/17 09:27 Eliquis PO 5 mg BID JOSAFAT Administration Colchicine 0.6 mg 04/27/17 09:00 04/27/17 09:27 Colcrys PO 0.6 mg DAILY JOSAFAT Administration Furosemide 40 mg 04/26/17 14:00 04/27/17 09:28 Lasix PO 40 mg DAILY JOSAFAT Administration Hydroxyurea 500 mg 04/26/17 14:00 04/27/17 09:28 Hydrea PO 500 mg BID JOSAFAT Administration Diltiazem HCl 125 mg/ Sodium 125 mls @ 5 mls/hr 04/26/17 19:30 04/26/17 22:25 Chloride IV Not Given .Q24H JOSAFAT 5 MG/HR Lisinopril 2.5 mg 04/26/17 14:00 04/27/17 09:28 Zestril PO 2.5 mg DAILY JOSAFAT Administration Metoprolol Tartrate 100 mg 04/26/17 14:00 04/27/17 09:28 Lopressor PO 100 mg BID JOSAFAT Administration Naloxone HCl 0.2 mg 04/26/17 12:24 Narcan IV Q2M PRN Opioid Reversal Tramadol HCl 50 mg 04/26/17 13:42 Ultram PO Q6HR PRN Pain Intake and Output 04/26/17 04/27/17 04/27/17 22:59 06:59 14:59 Intake Total 630 375 180 Balance 630 375 180 Intake: IV 375 Sodium Chloride 0.9% 1, 375 000 ml @ 75 mls/hr IV . [id number] JOSAFAT Rx#:[id number] Intake, IV Titration 450 Amount Sodium Chloride 0.9% 1, 450 000 ml @ 75 mls/hr IV . [id number] JOSAFAT Rx#:[id number] Oral 180 180 Other: Voiding Method Toilet Toilet # Voids 1 1 Weight 67.5 kg 04/27/17 05:25 04/27/17 05:25 EKG Interpretations (text) initial EKG showed atrial fibrillation with a rapid ventricular response Assessment and Plan Plan: assessment and plan #1 atrial fibrillation with rapid ventricular response, paroxysmal, patient currently in normal sinus rhythm #2 history of paroxysmal atrial fibrillation, on Eliquis for anticoagulation, status post prior cardioversion #3 nonischemic cardiomyopathy, patient did undergo cardiac catheterization in February 2016 which revealed mild nonobstructive coronary artery disease, the left main does not exist in the LAD and circumflex originate from the aorta. #4 hypertension # 5 family history of premature coronary artery disease #6 history of gout Plan We will review the echocardiogram with Doppler study. Continue Eliquis 5 mg one tablet by mouth twice a day along withmetoprolol 100 mg by mouth twice a day and Zestril 2.5 mg daily. Plan for possible discharge home, follow-up appointment with Dr. Hensley in the office post discharge. DNP note has been reviewed, I agree with a documented findings and plan of care. Patient was seen and examined.
--- NOTE | 2017-04-27 11:25 | ECHOF ---
Referral Reason:atrial fib MEASUREMENTS -------- HEIGHT: 182.9 cm WEIGHT: 71.7 kg BP: 103/71 RVIDd: 3.4 cm (< 3.3) IVSd: 1.0 cm (0.6 - 1.1) LVIDd: 5.1 cm (3.9 - 5.3) LVPWd: 1.1 cm (0.6 - 1.1) IVSs: 1.5 cm LVIDs: 3.0 cm LVPWs: 1.6 cm LA Diam: 3.5 cm (2.7 - 3.8) LAESV Index (A-L): 15.62 ml/m Ao Diam: 4.0 cm (2.0 - 3.7) AV Cusp: 2.4 cm (1.5 - 2.6) MV EXCURSION: 17.701 mm (> 18.000) MV EF SLOPE: 141 mm/s (70 - 150) EPSS: 0.7 cm AR PHT: 3472 ms RAP: 5.00 mmHg RVSP: 25.89 mmHg FINDINGS -------- Atrial fibrillation. This was a technically good study. The left ventricular size is normal. Left ventricular wall thickness is normal. Overall left vent ricular systolic function is normal with, an EF between 55 - 60 %. The right ventricle is mildly enlarged. Normal LA size by volume 22+/-6 ml/m2. The right atrium is normal in size. The aortic valve is trileaflet and appears structurally normal. There is mild aortic regurgitation. Mild mitral regurgitation is present. Mild tricuspid regurgitation present. Right ventricular systolic pressure is normal at < 35 mmHg. The pulmonic valve was not well visualized. The aortic root is dilated measuring 4.0cm. Normal inferior vena cava with normal inspiratory collapse consistent with estimated right atrial pre ssure of 5 mmHg. There is no pericardial effusion. CONCLUSIONS -------- 1. Atrial fibrillation. 2. This was a technically good study. 3. The left ventricular size is normal. 4. Left ventricular wall thickness is normal. 5. Overall left ventricular systolic function is normal with, an EF between 55 - 60 %. 6. The right ventricle is mildly enlarged. 7. Normal LA size by volume 22+/-6 ml/m2. 8. The right atrium is normal in size. 9. The aortic valve is trileaflet and appears structurally normal. 10. There is mild aortic regurgitation. 11. Mild mitral regurgitation is present. 12. Mild tricuspid regurgitation present. 13. Right ventricular systolic pressure is normal at < 35 mmHg. 14. The pulmonic valve was not well visualized. 15. The aortic root is dilated measuring 4.0cm. 16. Normal inferior vena cava with normal inspiratory collapse consistent with estimated right atrial pressure of 5 mmHg. 17. There is no pericardial effusion. DAY CARE ASSISTANT: Raven Ng RDCS
--- NOTE | 2017-04-27 11:54 | P.DS ---
Providers Date of admission: 04/26/17 12:26 Expected date of discharge: 04/27/17 Attending physician: Cynthia Hensley MD Consults: 04/26/17 12:25 Consult Physician Urgent Consulting Provider: Constantino Byrne Consult Reason/Comments: Oncological Do you want consulting provider notified?: Yes Consult Physician Urgent Consulting Provider: Anoop Ortega Consult Reason/Comments: a fib w rvr Do you want consulting provider notified?: Yes Primary care physician: Adolfo [facility] Hospital Course: 57 years old male patient of Dr. Salas with a past medical history of atrial fibrillation status post ablation, nonischemic cardiomyopathy secondary to atrial fibrillation, history of bone cancer currently on chemotherapy, hypertension, hyperlipidemia presents in with shortness of breath associated with chest pain that started at 4:30 in the morning when patient woke up to let his dog out. Patient noticed that his heart rate was high but since his breathing difficulty worsened when he started having substernal chest pain associated with hot sweats patient decided to come to the ER. Patient was found to be in atrial fibrillation with a heart rate running in [address] or T-wave changes seen on the EKG. Initiated on Cardizem with improvement in heartrate. Cardiology consulted patient elliquis was initiated. 04/27: Heart rate is running in the 60s. Blood pressure has been on the lower side but stable. Patient has been seen by cardiology with recommendations to continue same medications. Echocardiogram reveals EF of 55-60%, normal LA, mild aortic regurgitation, mild mitral regurgitation, mild tricuspid regurgitation. Patient will be discharged home today in stable condition. Discharge diagnoses: 1. Atrial fibrillation with RVR with history of chronic atrial fibrillation 2. Nonischemic cardiomyopathy with last ejection fraction reported in July 2016 been 25% but patient stated has improved since then. 3. Gout unspecified 4. Essential thrombocythemia Discharge plan: Return home Impression and plan of care have been directed as dictated by the signing physician. Judith Stout nurse practitioner acting as scribe for signing physician. Patient Condition at Discharge: Good Plan - Discharge Summary Discharge Rx Participant: No New Discharge Prescriptions: Continue Apixaban [Eliquis] 5 mg PO BID #60 tab Furosemide [Lasix] 40 mg PO DAILY #30 tab traMADol HCL [Ultram] 50 mg PO Q6HR PRN PRN Reason: Pain Lisinopril [Zestril] 2.5 mg PO DAILY Hydroxyurea [Hydrea] 500 mg PO BID Allopurinol [Zyloprim] 100 mg PO DAILY Metoprolol Tartrate [Lopressor] 100 mg PO BID Colchicine [Colcrys] 0.6 mg PO DAILY Discharge Medication List Apixaban [Eliquis] 5 mg PO BID #60 tab 03/08/16 [Rx] Furosemide [Lasix] 40 mg PO DAILY #30 tab 03/08/16 [Rx] Allopurinol [Zyloprim] 100 mg PO DAILY 06/18/16 [History] Hydroxyurea [Hydrea] 500 mg PO BID 06/18/16 [History] Lisinopril [Zestril] 2.5 mg PO DAILY 06/18/16 [History] Metoprolol Tartrate [Lopressor] 100 mg PO BID 06/18/16 [History] traMADol HCL [Ultram] 50 mg PO Q6HR PRN 06/18/16 [History] Colchicine [Colcrys] 0.6 mg PO DAILY 04/26/17 [History] Follow up Appointment(s)/Referral(s): Adolfo Morrell MD [Primary Care Provider] - 05/03/17 2:00 pm ( with GABY Maza) Anoop Ortega MD [STAFF PHYSICIAN] - 05/22/17 1:15 pm (Sunday) Patient Instructions/Handouts: A-fib (Atrial Fibrillation) (DC), Safe Use of Anticoagulants (DC) Discharge Disposition: HOME SELF-CARE
[2017-04-27 12:16] VITALS: BP 114/65; PULSE 57
--- NOTE | 2017-05-04 14:55 | CDI ---
Last Revision, January 2017 Documentation Clarification Form Date: 05/04/17 From: Aida Brunson Phone: If you have a question regarding this query, please contact Velia Epsteincharlyoziel [employer] Signal Technician at [phone] Admit Date: 04/26/2017 12:26:00 PM Patient Name: Eddy Ocampo Visit Number: [id number] Discharge Date: 04/27/17 ATTENTION: The Clinical Documentation Specialists (CDI) and [facility] Coding Staff appreciate your assistance in clarifying documentation. Please respond to the clarification below the line at the bottom and electronically sign. The CDI & [facility] Coding staff will review the response and follow-up if needed. Please note: Queries are made part of the Legal Health Record. If you have any questions, please contact the author of this message via ITS. Dr. Nighat Walls Heart failure is documented in the past medical history of the H&P and consult note. History/Risk Factors:. Patient has a history of hypertension, atrial fib and non -ischemic cardiomyopathy. Echocardiogram Results: EF of 55-60%, normal LA, mild aortic regurgitation, mild mitral regurgitation and mild tricuspid regurgitation. Treatment: Home meds of PO Lasix and PO Zestril In your professional opinion, can you please clarify the type of CHF if known? Systolic Heart Failure: Diastolic Heart Failure: Systolic & Diastolic Heart Failure: Unable to Determine Other, please specify__unable to determine MTDD
== END 2017-04-27 12:34 | disposition home or self-care (01) ==
LOC: EC 10:01 → INTOOBSV 12:26 → 6SEL 12:26 → UNDODISIN 04-27 12:34
PROVIDERS: ADMIT Internal Medicine; ATTEND Internal Medicine
DX: I48.2 Chronic atrial fibrillation (principal); I48.0 Paroxysmal atrial fibrillation; I42.9 Cardiomyopathy, unspecified; M10.9 Gout, unspecified; D47.3 Essential (hemorrhagic) thrombocythemia; C41.9 Malignant neoplasm of bone and articular cartilage, unspecified; I50.9 Heart failure, unspecified; I25.10 Atherosclerotic heart disease of native coronary artery without angina pectoris; R61 Generalized hyperhidrosis; R13.10 Dysphagia, unspecified; K21.9 Gastro-esophageal reflux disease without esophagitis; E78.5 Hyperlipidemia, unspecified; I11.0 Hypertensive heart disease with heart failure; M19.90 Unspecified osteoarthritis, unspecified site; H54.8 Legal blindness, as defined in USA; Z79.01 Long term (current) use of anticoagulants; Z79.899 Other long term (current) drug therapy; Z92.21 Personal history of antineoplastic chemotherapy; Z80.3 Family history of malignant neoplasm of breast; Z80.8 Family history of malignant neoplasm of other organs or systems; Z82.3 Family history of stroke; Z82.49 Family history of ischemic heart disease and other diseases of the circulatory system
CPT/HCPCS: 96366 ×4; 96376; 96365; 99291; 36415; 93005; 93306; 84439; 84481; 80053 ×2; 82248; 82550; 82553; 83735; 84443; 84484; 85025 ×2; 85610; 85730; 71045; G0378 ×2; S0176 ×2

== ENCOUNTER 2017-06-20 10:30 | Emergency (ER) | payer OTHER ==
--- NOTE | 2017-06-20 11:03 | ED ---
General Adult HPI - General Chief complaint: Upper Respiratory Infection Stated complaint: POSS BROCHITIS Time Seen by Provider: 06/20/17 10:30 Source: patient, RN notes reviewed Mode of arrival: ambulatory Limitations: no limitations - History of Present Illness Initial comments: This is a 57-year-old male who presents emergency Department with a past medical history of cancer. Patient comes in today stating that he has had a cough with sputum production over the last couple days a little bit of shortness of breath as well. Patient states she's been coughing so much his chest hurts when he coughs as does his upper abdomen. Patient denies any vomiting or diarrhea. Patient denies any recent fever or chills. Patient denies any chest pain without coughing. Patient denies any back pain. Patient denies any recent injury or fall. - Related Data Home Medications Medication Instructions Recorded Confirmed Allopurinol [Zyloprim] 100 mg PO DAILY 06/18/16 06/20/17 Lisinopril [Zestril] 2.5 mg PO DAILY 06/18/16 06/20/17 Metoprolol Tartrate [Lopressor] 100 mg PO BID 06/18/16 06/20/17 traMADol HCL [Ultram] 50 mg PO Q6HR PRN 06/18/16 06/20/17 Colchicine [Colcrys] 0.6 mg PO DAILY 04/26/17 06/20/17 Hydroxyurea [Hydrea] 500 - 1,000 mg PO DIRECTED 06/20/17 06/20/17 Warfarin Sodium [Coumadin] 4 mg PO TUTH 06/20/17 06/20/17 Warfarin [Coumadin] 2 mg PO SUMOWEFRSA 06/20/17 06/20/17 Previous Rx's Medication Instructions Recorded Furosemide [Lasix] 40 mg PO DAILY #30 tab 03/08/16 Albuterol Inhaler [Ventolin Hfa 1 - 2 puff INHALATION Q6HR PRN #2 06/20/17 Inhaler] puff Azithromycin [Zithromax Tri-Franki] 500 mg PO DAILY #3 tab 06/20/17 Allergies Allergy/AdvReac Type Severity Reaction Status Date / Time No Known Allergies Allergy Verified 06/20/17 10:50 Review of Systems ROS Statement: Those systems with pertinent positive or pertinent negative responses have been documented in the HPI. ROS Other: All systems not noted in ROS Statement are negative. 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 History of Any Multi-Drug Resistant Organisms: None Reported Past Surgical History: Heart Catheterization, Orthopedic Surgery Additional Past Surgical History / Comment(s): 08/21/16 cardioversion, 03/07/16 cardiac cath, colonoscopy with benign polypectomy, EGD due to hiatal hernia obstruction, jaw surgery, L eye optic nerve surgery twice, R eye optic nerve surgery once. Past Anesthesia/Blood Transfusion Reactions: No Reported Reaction Past Psychological History: No Psychological Hx Reported Smoking Status: Never smoker Past Alcohol Use History: Occasional Past Drug Use History: None Reported - Past Family History Mother Family Medical History: Cancer Additional Family Medical History / Comment(s): BREAST/BONE CANCER. Father Family Medical History: Coronary Artery Disease (CAD), CVA/TIA Additional Family Medical History / Comment(s): Father had CABG and a CVA post op that took his life. General Exam - General Exam Comments Initial Comments: GENERAL: Patient is well-developed and well-nourished. Patient is nontoxic and well- hydrated and is in distress. ENT: Neck is soft and supple. No significant lymphadenopathy is noted. Oropharynx is clear. Moist mucous membranes. Neck has full range of motion without eliciting any pain. EYES: The sclera were anicteric and conjunctiva were pink and moist. Extraocular movements were intact and pupils were equal round and reactive to light. Eyelids were unremarkable. PULMONARY: Patient has some expiratory wheezing. CARDIOVASCULAR: There is a regular rate and rhythm without any murmurs gallops or rubs. ABDOMEN: Soft and nontender with normal bowel sounds. SKIN: Skin is clear with no lesions or rashes and otherwise unremarkable. NEUROLOGIC: Patient is alert and oriented x3. Cranial nerves II through XII are grossly intact. Motor and sensory are also intact. Normal speech, volume and content. Symmetrical smile. MUSCULOSKELETAL: Normal extremities with adequate strength and full range of motion. No lower extremity swelling or edema. No calf tenderness. LYMPHATICS: No significant lymphadenopathy is noted PSYCHIATRIC: Normal psychiatric evaluation. Normal interpersonal interactions appears functionally intact in deals appropriately with others. No signs of depression. No signs of anxiety. Limitations: no limitations Course Vital Signs 06/20/17 06/20/17 10:32 11:22 Temperature 99.7 F H Pulse Rate 54 L 66 Respiratory 18 Rate Blood Pressure 124/61 O2 Sat by Pulse 97 Oximetry Medical Decision Making - Medical Decision Making Chest x-ray shows no acute abnormality. The patient received 1 g of Rocephin because of his immune no depressed state and the fact that he is coughing up sputum. - Lab Data Result diagrams: 06/20/17 11:15 06/20/17 11:15 Lab Results 06/20/17 06/20/17 Range/Units 11:15 11:15 WBC 4.4 (3.8-10.6) k/uL RBC 2.85 L (4.30-5.90) m/uL Hgb 12.2 L (13.0-17.5) gm/dL Hct 33.8 L (39.0-53.0) % MCV 118.9 H D (80.0-100.0) fL MCH 42.8 H (25.0-35.0) pg MCHC 36.0 (31.0-37.0) g/dL RDW 13.8 (11.5-15.5) % Plt Count 238 (150-450) k/uL Sodium 136 L (137-145) mmol/L Potassium 5.0 (3.5-5.1) mmol/L Chloride 97 L (98-107) mmol/L Carbon Dioxide 27 (22-30) mmol/L Anion Gap 12 mmol/L BUN 21 H (9-20) mg/dL Creatinine 0.90 (0.66-1.25) mg/dL Est GFR (CKD-EPI)AfAm >90 (>60 ml/min/1.73 sqM) Est GFR (CKD-EPI)NonAf >90 (>60 ml/min/1.73 sqM) Glucose 89 (74-99) mg/dL Calcium 9.3 (8.4-10.2) mg/dL Total Bilirubin 1.4 H (0.2-1.3) mg/dL AST 30 (17-59) U/L ALT 32 (21-72) U/L Alkaline Phosphatase 121 (38-126) U/L Total Protein 7.0 (6.3-8.2) g/dL Albumin 4.4 (3.5-5.0) g/dL Disposition Clinical Impression: Acute bronchiolitis with bronchospasm Disposition: HOME SELF-CARE Condition: Good Additional Instructions: Patient should follow-up with his doctor by the end of the week Prescriptions: Albuterol Inhaler [Ventolin Hfa Inhaler] 1 - 2 puff INHALATION Q6HR PRN #2 puff PRN Reason: Difficulty breathing Azithromycin [Zithromax Tri-Franki] 500 mg PO DAILY #3 tab Is patient prescribed a controlled substance at d/c from ED?: No Referrals: Adolfo Morrell MD [Primary Care Provider] - 1-2 days Time of Disposition: 12:41
[2017-06-20] MEDS ORDERED: IPRATROPIUM-ALBUTEROL 3 ML NEB INHALATION STA (11:04)
[2017-06-20 11:34] LABS: ALT 32 U/L (21-72); AST 30 U/L (17-59); Albumin 4.4 g/dL (3.5-5.0); Alkaline Phosphatase 121 U/L (38-126); Anion Gap 12 mmol/L; Blood Urea Nitrogen 21 mg/dL (9-20); Calcium 9.3 mg/dL (8.4-10.2); Carbon Dioxide 27 mmol/L (22-30); Chloride 97 mmol/L (98-107); Glucose 89 mg/dL (74-99); Sodium 136 mmol/L (137-145); Total Bilirubin 1.4 mg/dL (0.2-1.3)
[2017-06-20 11:42] LABS: Basophils % (A) 0 %; Eosinophils # (A) 0.1 k/uL (0-0.7); Eosinophils % (A) 1 %; HCT 33.8 % (39.0-53.0); HGB 12.2 gm/dL (13.0-17.5); Lymphocytes # (A) 0.6 k/uL (1.0-4.8); Lymphocytes % (A) 13 %; Macrocytosis Marked; Mean Platelet Volume 7.9; Monocytes # (A) 0.3 k/uL (0-1.0); Monocytes % (A) 6 %; Neutrophils # (A) 3.4 k/uL (1.3-7.7); Neutrophils % (A) 78 %; Platelet Count 238 k/uL (150-450); Poikilocytosis Slight; RBC 2.85 m/uL (4.30-5.90); RDW 13.8 % (11.5-15.5); WBC 4.4 k/uL (3.8-10.6)
--- NOTE | 2017-06-20 11:54 | XR ---
EXAMINATION TYPE: XR chest 2V DATE OF EXAM: 06/20/2017 COMPARISON: Prior chest x-ray 04/26/2017 HISTORY: Difficulty breathing TECHNIQUE: Frontal and lateral views of the chest are obtained on 3 images. FINDINGS: There is no focal air space opacity, pleural effusion, or pneumothorax seen. Biapical pleu ral thickening is noted. Patient is rotated. The cardiac silhouette size is within normal limits. T he osseous structures are intact. IMPRESSION: No acute cardiopulmonary process.
[2017-06-20 12:10] LABS: MCH 42.8 pg (25.0-35.0)
[2017-06-20 12:11] LABS: MCV 118.9 fL (80.0-100.0)
[2017-06-20] MEDS ORDERED: cefTRIAXone IN SWFI 1,000 MG/10 ML SYRINGE IVP STA (12:33)
[2017-06-20 12:43] VITALS: RESP 16
[2017-06-20 12:55] VITALS: BP 108/64; PULSE 58; TEMP 100.7
== END 2017-06-20 13:13 | disposition home or self-care (01) ==
LOC: EC 10:30
DX: J21.9 Acute bronchiolitis, unspecified (principal); I48.91 Unspecified atrial fibrillation; I11.0 Hypertensive heart disease with heart failure; I50.9 Heart failure, unspecified; K21.9 Gastro-esophageal reflux disease without esophagitis; E78.5 Hyperlipidemia, unspecified; M10.9 Gout, unspecified; C96.9 Malignant neoplasm of lymphoid, hematopoietic and related tissue, unspecified; Z95.5 Presence of coronary angioplasty implant and graft; Z79.01 Long term (current) use of anticoagulants; Z79.899 Other long term (current) drug therapy
CPT/HCPCS: 99284; 96374; 36415; 94640; 80053; 85025; 71046; J0696

== ENCOUNTER 2017-11-09 16:04 | Inpatient (IN) | payer OTHER ==
[2017-11-09] MEDS ORDERED: METOPROLOL TARTRATE 5 MG/5 ML VIAL IVP STA ×3 (16:25→18:24)
[2017-11-09] MEDS ORDERED: SODIUM CHLORIDE 0.9% 500 ML IV STA (16:25)
[2017-11-09 16:51] LABS: INR 1.4 (<1.2)
[2017-11-09 16:52] LABS: ALT 23 U/L (21-72); AST 25 U/L (17-59); Alkaline Phosphatase 96 U/L (38-126); Anion Gap 11 mmol/L; Blood Urea Nitrogen 14 mg/dL (9-20); Calcium 9.6 mg/dL (8.4-10.2); Carbon Dioxide 24 mmol/L (22-30); Chloride 102 mmol/L (98-107); Glucose 147 mg/dL (74-99); Magnesium 1.7 mg/dL (1.6-2.3); Potassium 3.9 mmol/L (3.5-5.1); Sodium 137 mmol/L (137-145); Total Bilirubin 1.4 mg/dL (0.2-1.3); Total Protein 6.8 g/dL (6.3-8.2)
[2017-11-09 16:57] LABS: Basophils # (A) 0.1 k/uL (0-0.2); Basophils % (A) 1 %; Eosinophils # (A) 0.1 k/uL (0-0.7); Eosinophils % (A) 1 %; HCT 39.8 % (39.0-53.0); HGB 14.1 gm/dL (13.0-17.5); Lymphocytes # (A) 1.1 k/uL (1.0-4.8); Lymphocytes % (A) 12 %; MCHC 35.4 g/dL (31.0-37.0); MCV 121.3 fL (80.0-100.0); Macrocytosis Marked; Mean Platelet Volume 7.6; Monocytes # (A) 0.5 k/uL (0-1.0); Monocytes % (A) 6 %; Neutrophils # (A) 7.5 k/uL (1.3-7.7); Neutrophils % (A) 80 %; Platelet Count 361 k/uL (150-450); RBC 3.28 m/uL (4.30-5.90); RDW 14.9 % (11.5-15.5); WBC 9.4 k/uL (3.8-10.6)
[2017-11-09 17:03] LABS: MCH 42.9 pg (25.0-35.0)
[2017-11-09 17:13] LABS: Creatine Kinase MB 2.3 ng/mL (0.0-2.4); Troponin I 0.033 ng/mL (0.000-0.034)
--- NOTE | 2017-11-09 17:15 | XR ---
EXAMINATION TYPE: XR chest 2V DATE OF EXAM: 11/09/2017 COMPARISON: 06/20/2017 HISTORY: Irregular heart rate TECHNIQUE: Frontal and lateral views of the chest are obtained. FINDINGS: Heart and mediastinum are normal. Lungs are clear. Diaphragm is normal. Bony thorax is nor mal. There are chest leads. IMPRESSION: Normal chest. No change.
[2017-11-09 17:19] LABS: Large Platelets Present; Polychromasia Present
--- NOTE | 2017-11-09 18:18 | ED ---
General Adult HPI - General Chief complaint: Chest Pain Stated complaint: Chest Pain Time Seen by Provider: 11/09/17 16:07 Source: patient, RN notes reviewed, old records reviewed Mode of arrival: wheelchair Limitations: no limitations - History of Present Illness Initial comments: 57-year-old male history of atrial fibrillation presents for evaluation of palpitations and central chest tightness. Patient's symptoms have been present throughout the day today. He woke with these symptoms this morning. He states he is normally in sinus rhythm and can tell when he is in atrial fibrillation. Denies significant dyspnea. Denies fever or chills. Denies cough. Denies lower extremity pain or swelling. Patient is currently on Coumadin. - Related Data Home Medications Medication Instructions Recorded Confirmed Allopurinol [Zyloprim] 100 mg PO DAILY 06/18/16 11/09/17 Lisinopril [Zestril] 2.5 mg PO DAILY 06/18/16 11/09/17 Metoprolol Tartrate [Lopressor] 100 mg PO BID 06/18/16 11/09/17 traMADol HCL [Ultram] 50 mg PO TID 06/18/16 11/09/17 Colchicine [Colcrys] 0.6 mg PO DAILY 04/26/17 11/09/17 Hydroxyurea [Hydrea] 500 - 1,000 mg PO DIRECTED 06/20/17 11/09/17 Warfarin Sodium [Coumadin] 4 mg PO DAILY 06/20/17 11/09/17 Albuterol Inhaler [Ventolin Hfa 1 - 2 puff INHALATION Q6HR PRN 11/09/17 11/09/17 Inhaler] Furosemide [Lasix] 20 mg PO DAILY 11/09/17 11/09/17 Hydroxyurea [Hydrea] 500 mg PO BID 11/09/17 11/09/17 Spironolactone [Aldactone] 12.5 mg PO DAILY 11/09/17 11/09/17 Allergies Allergy/AdvReac Type Severity Reaction Status Date / Time No Known Allergies Allergy Verified 11/09/17 16:34 Review of Systems ROS Statement: Those systems with pertinent positive or pertinent negative responses have been documented in the HPI. ROS Other: All systems not noted in ROS Statement are negative. 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 History of Any Multi-Drug Resistant Organisms: None Reported Past Surgical History: Heart Catheterization, Orthopedic Surgery Additional Past Surgical History / Comment(s): 08/21/16 cardioversion, 03/07/16 cardiac cath, colonoscopy with benign polypectomy, EGD due to hiatal hernia obstruction, jaw surgery, L eye optic nerve surgery twice, R eye optic nerve surgery once. Past Anesthesia/Blood Transfusion Reactions: No Reported Reaction Past Psychological History: No Psychological Hx Reported Smoking Status: Never smoker Past Alcohol Use History: Occasional Past Drug Use History: None Reported - Past Family History Mother Family Medical History: Cancer Additional Family Medical History / Comment(s): BREAST/BONE CANCER. Father Family Medical History: Coronary Artery Disease (CAD), CVA/TIA Additional Family Medical History / Comment(s): Father had CABG and a CVA post op that took his life. General Exam Limitations: no limitations General appearance: alert, in no apparent distress Head exam: Present: atraumatic, normocephalic Eye exam: Present: normal appearance, PERRL ENT exam: Present: normal exam Neck exam: Present: normal inspection. Absent: tenderness, meningismus Respiratory exam: Present: normal lung sounds bilaterally. Absent: respiratory distress, wheezes, rales Cardiovascular Exam: Present: tachycardia, irregular rhythm GI/Abdominal exam: Present: soft. Absent: distended, tenderness Extremities exam: Present: normal inspection, normal capillary refill. Absent: pedal edema, calf tenderness Neurological exam: Present: alert, oriented X3, CN II-XII intact. Absent: motor sensory deficit Psychiatric exam: Present: normal affect, normal mood Skin exam: Present: warm, dry, intact. Absent: cyanosis, diaphoretic Course Vital Signs 11/09/17 11/09/17 11/09/17 16:06 16:46 17:17 Temperature 97.5 F L Pulse Rate 126 H 130 H 116 H Respiratory 16 18 18 Rate Blood Pressure 91/56 104/79 101/77 O2 Sat by Pulse 98 98 98 Oximetry 11/09/17 19:35 Temperature Pulse Rate 81 Respiratory 18 Rate Blood Pressure 105/63 O2 Sat by Pulse 9 L Oximetry EKG Findings - EKG Comments: EKG Findings:: EKG: Atrial flutter with variable AV block and PVC, no ST segment elevation, rate of 118, QRS duration 86, QTC 178, QTC 249 Medical Decision Making - Medical Decision Making 57-year-old presenting for evaluation of palpitations and central chest tightness. Patient has history of atrial fibrillation, he is on Coumadin and metoprolol. States his symptoms have been present throughout the day today. He does know when he is in atrial fibrillation, and he states he is typically in sinus rhythm. His symptoms normally improve with hydration and metoprolol. They have failed to improve today. EKG shows atrial flutter with rate of 118. Patient is given metoprolol and IV hydration emergency department. His rate does improve to the 80s. Laboratory studies reveal normal white blood cell count, stable hemoglobin, troponin is 0.033, given the chest tightness he will be kept for serial cardiac enzymes and cardiology consultation. Chest x-ray negative for any acute cardiopulmonary disease. Case discussed with Dr. Camacho, who will accept admission. - Lab Data Result diagrams: 11/09/17 16:20 11/09/17 16:20 Lab Results 11/09/17 11/09/17 11/09/17 Range/Units 16:20 16:20 16:20 WBC 9.4 (3.8-10.6) k/uL RBC 3.28 L (4.30-5.90) m/uL Hgb 14.1 (13.0-17.5) gm/dL Hct 39.8 (39.0-53.0) % MCV 121.3 H (80.0-100.0) fL MCH 42.9 H (25.0-35.0) pg MCHC 35.4 (31.0-37.0) g/dL RDW 14.9 (11.5-15.5) % Plt Count 361 (150-450) k/uL Neutrophils % 80 % Lymphocytes % 12 % Monocytes % 6 % Eosinophils % 1 % Basophils % 1 % Neutrophils # 7.5 (1.3-7.7) k/uL Lymphocytes # 1.1 (1.0-4.8) k/uL Monocytes # 0.5 (0-1.0) k/uL Eosinophils # 0.1 (0-0.7) k/uL Basophils # 0.1 (0-0.2) k/uL Manual Slide Review Performed Large Platelets Present Polychromasia Present Macrocytosis Marked PT (9.0-12.0) sec INR (<1.2) APTT (22.0-30.0) sec Sodium 137 (137-145) mmol/L Potassium 3.9 (3.5-5.1) mmol/L Chloride 102 (98-107) mmol/L Carbon Dioxide 24 (22-30) mmol/L Anion Gap 11 mmol/L BUN 14 (9-20) mg/dL Creatinine 0.86 (0.66-1.25) mg/dL Est GFR (CKD-EPI)AfAm >90 (>60 ml/min/1.73 sqM) Est GFR (CKD-EPI)NonAf >90 (>60 ml/min/1.73 sqM) Glucose 147 H (74-99) mg/dL Calcium 9.6 (8.4-10.2) mg/dL Magnesium 1.7 (1.6-2.3) mg/dL Total Bilirubin 1.4 H (0.2-1.3) mg/dL AST 25 (17-59) U/L ALT 23 (21-72) U/L Alkaline Phosphatase 96 (38-126) U/L Total Creatine Kinase 57 (55-170) U/L CK-MB (CK-2) 2.3 (0.0-2.4) ng/mL CK-MB (CK-2) Rel Index 4.0 Troponin I 0.033 (0.000-0.034) ng/mL NT-Pro-B Natriuret Pep pg/mL Total Protein 6.8 (6.3-8.2) g/dL Albumin 4.0 (3.5-5.0) g/dL 11/09/17 11/09/17 Range/Units 16:20 16:20 WBC (3.8-10.6) k/uL RBC (4.30-5.90) m/uL Hgb (13.0-17.5) gm/dL Hct (39.0-53.0) % MCV (80.0-100.0) fL MCH (25.0-35.0) pg MCHC (31.0-37.0) g/dL RDW (11.5-15.5) % Plt Count (150-450) k/uL Neutrophils % % Lymphocytes % % Monocytes % % Eosinophils % % Basophils % % Neutrophils # (1.3-7.7) k/uL Lymphocytes # (1.0-4.8) k/uL Monocytes # (0-1.0) k/uL Eosinophils # (0-0.7) k/uL Basophils # (0-0.2) k/uL Manual Slide Review Large Platelets Polychromasia Macrocytosis PT 13.0 H (9.0-12.0) sec INR 1.4 H (<1.2) APTT 27.0 (22.0-30.0) sec Sodium (137-145) mmol/L Potassium (3.5-5.1) mmol/L Chloride (98-107) mmol/L Carbon Dioxide (22-30) mmol/L Anion Gap mmol/L BUN (9-20) mg/dL Creatinine (0.66-1.25) mg/dL Est GFR (CKD-EPI)AfAm (>60 ml/min/1.73 sqM) Est GFR (CKD-EPI)NonAf (>60 ml/min/1.73 sqM) Glucose (74-99) mg/dL Calcium (8.4-10.2) mg/dL Magnesium (1.6-2.3) mg/dL Total Bilirubin (0.2-1.3) mg/dL AST (17-59) U/L ALT (21-72) U/L Alkaline Phosphatase (38-126) U/L Total Creatine Kinase (55-170) U/L CK-MB (CK-2) (0.0-2.4) ng/mL CK-MB (CK-2) Rel Index Troponin I (0.000-0.034) ng/mL NT-Pro-B Natriuret Pep 1990 pg/mL Total Protein (6.3-8.2) g/dL Albumin (3.5-5.0) g/dL Disposition Clinical Impression: Atrial fibrillation with RVR Disposition: ADMITTED IP TO THIS HOSP Condition: Stable Is patient prescribed a controlled substance at d/c from ED?: No Decision to Admit Reason: Admit from EC Decision Date: 11/09/17 Decision Time: 18:54
[2017-11-09] MEDS ORDERED: NALOXONE 0.4 MG/ML 1 ML VIAL IV PRN (18:50)
[2017-11-09] MEDS ORDERED: ACETAMINOPHEN TAB 325 MG TAB PO PRN (18:50)
[2017-11-09] MEDS ORDERED: METOPROLOL TARTRATE 50 MG TAB PO STA ×2 (19:38→23:49)
[2017-11-09] MEDS: SODIUM CHLORIDE 0.9% 1,000 ML IV SCH (21:42)
[2017-11-09 22:19] VITALS: BMI 20.9
[2017-11-09 23:08] LABS: Creatine Kinase MB 1.7 ng/mL (0.0-2.4)
[2017-11-09 23:22] LABS: Troponin I 0.047 ng/mL (0.000-0.034)
[2017-11-10 05:53] LABS: INR 1.3 (<1.2); Prothrombin Time 12.4 sec (9.0-12.0)
[2017-11-10 06:08] LABS: Creatine Kinase MB 1.6 ng/mL (0.0-2.4); Troponin I 0.029 ng/mL (0.000-0.034)
[2017-11-10] MEDS: LISINOPRIL 2.5 MG TAB PO SCH (09:33)
[2017-11-10] MEDS: METOPROLOL TARTRATE 50 MG TAB PO SCH ×2 (09:33→20:50)
[2017-11-10] MEDS: FUROSEMIDE 20 MG TAB PO SCH (09:33)
[2017-11-10] MEDS: COLCHICINE 0.6 MG EACH PO SCH (09:34)
--- NOTE | 2017-11-10 11:30 | P.CRDCN ---
History of Present Illness History of present illness: This is Dr. Kwon dictating a consult on this patient The patient was interviewed and examined by me IMPRESSION / ASSESSMENT: Atrial flutter with RVR, symptomatic, recurrent Atrial flutter degenerates to atrial fibrillation Subtherapeutic INRs Leukemia Hypertension Dyslipidemia History of nonischemic cardiomyopathy Legal blindness I'll nonobstructive CAD by coronary angiography Never smoker PLAN: Anticoagulate, heparin followed by Coumadin I had a detailed discussion with him regarding management of atrial flutter and atrial fibrillation I would recommend ablation for atrial flutter and reassessment thereafter regarding the frequency of episodes of atrial fibrillation since he started off with atrial flutter that later degenerated to atrial fibrillation HPI Palpitations and chest discomfort. Woke up with this. 12-lead ECG showed atrial flutter with RVR. Subsequently this morning he went to atrial fibrillation. He is on Coumadin ROS: No fever chills or rigors, no cough, phlegm or expectoration, no nausea, vomiting or diarrhea, no hematuria, dysuria, no musculoskeletal complaints, no strokes or seizures, no skin lesions. EXAMINATION Rhythm is irregular Pulse rate in the 80s, afebrile 98.3F, blood pressure 121/71 mmHg Heart sounds are normal Breath sounds are clear abdomen is soft nontender extremities warm no edema REVIEW OF LABS, ECG Admitting ECG shows atrial flutter with RVR 118 beats a minute ECG this morning shows atrial fibrillation with a controlled ventricular response Hemoglobin 14 INR 1.4 Borderline troponin normal cardiac enzymes discussed that normal electrolytes Past Medical History Past Medical History: Atrial Fibrillation, Cancer, Heart Failure, GERD/Reflux, Hyperlipidemia, Hypertension, Osteoarthritis (OA), Syncope Additional Past Medical History / Comment(s): Afib with past RVR, nonischemic cardiomyopathy, 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 History of Any Multi-Drug Resistant Organisms: None Reported Past Surgical History: Heart Catheterization, Orthopedic Surgery Additional Past Surgical History / Comment(s): 08/21/16 cardioversion, 03/07/16 cardiac cath, colonoscopy with benign polypectomy, EGD due to hiatal hernia obstruction, jaw surgery, L eye optic nerve surgery twice, R eye optic nerve surgery once. Past Anesthesia/Blood Transfusion Reactions: No Reported Reaction Past Psychological History: No Psychological Hx Reported Additional Psychological History / Comment(s): Pt resides with his spouse. He works midnights at [employer]. He drives. Smoking Status: Never smoker Past Alcohol Use History: Occasional Past Drug Use History: None Reported Additional Drug Use History / Comment(s): pt states he drinks 3-4 beers a day. - Past Family History Mother Family Medical History: Cancer Additional Family Medical History / Comment(s): BREAST/BONE CANCER. Father Family Medical History: Coronary Artery Disease (CAD), CVA/TIA Additional Family Medical History / Comment(s): Father had CABG and a CVA post op that took his life. Medications and Allergies Home Medications Medication Instructions Recorded Confirmed Type Allopurinol [Zyloprim] 100 mg PO DAILY 06/18/16 11/09/17 History Lisinopril [Zestril] 2.5 mg PO DAILY 06/18/16 11/09/17 History Metoprolol Tartrate [Lopressor] 100 mg PO BID 06/18/16 11/09/17 History traMADol HCL [Ultram] 50 mg PO TID 06/18/16 11/09/17 History Colchicine [Colcrys] 0.6 mg PO DAILY 04/26/17 11/09/17 History Hydroxyurea [Hydrea] 500 - 1,000 mg PO DIRECTED 06/20/17 11/09/17 History Warfarin Sodium [Coumadin] 4 mg PO DAILY 06/20/17 11/09/17 History Albuterol Inhaler [Ventolin Hfa 1 - 2 puff INHALATION Q6HR PRN 11/09/17 History Inhaler] Furosemide [Lasix] 20 mg PO DAILY 11/09/17 11/09/17 History Hydroxyurea [Hydrea] 500 mg PO BID 11/09/17 11/09/17 History Spironolactone [Aldactone] 12.5 mg PO DAILY 11/09/17 11/09/17 History Allergies Allergy/AdvReac Type Severity Reaction Status Date / Time No Known Allergies Allergy Verified 11/09/17 16:34 Physical Exam Vitals: Vital Signs Temp Pulse Pulse Resp BP BP Pulse Ox 11/10/17 08:51 99 11/10/17 08:00 98.3 F 80 19 121/71 97 11/10/17 04:00 87 16 119/81 99 11/10/17 03:38 83 11/10/17 00:00 114 H 16 112/66 99 11/09/17 21:30 85 18 104/71 99 11/09/17 20:54 97.8 F 85 16 131/73 97 11/09/17 19:35 81 18 105/63 9 L 11/09/17 17:17 116 H 18 101/77 98 11/09/17 16:46 130 H 18 104/79 98 11/09/17 16:06 97.5 F L 126 H 16 91/56 98 Intake and Output 11/09/17 11/10/17 11/10/17 22:59 06:59 14:59 Intake Total 240 180 Balance 240 180 Intake: Oral 240 180 Other: Voiding Method Toilet Toilet # Voids 1 1 Weight 69.9 kg 69.9 kg Results 11/09/17 16:20 11/09/17 16:20 Cardiac Enzymes 11/09/17 11/09/17 11/09/17 Range/Units 16:20 16:20 22:11 AST 25 (17-59) U/L CK-MB (CK-2) 2.3 1.7 (0.0-2.4) ng/mL Troponin I 0.033 0.047 H* (0.000-0.034) ng/mL 11/10/17 Range/Units 05:28 AST (17-59) U/L CK-MB (CK-2) 1.6 (0.0-2.4) ng/mL Troponin I 0.029 (0.000-0.034) ng/mL Coagulation 11/09/17 11/10/17 Range/Units 16:20 05:28 PT 13.0 H 12.4 H (9.0-12.0) sec APTT 27.0 (22.0-30.0) sec CBC 11/09/17 Range/Units 16:20 WBC 9.4 (3.8-10.6) k/uL RBC 3.28 L (4.30-5.90) m/uL Hgb 14.1 (13.0-17.5) gm/dL Hct 39.8 (39.0-53.0) % Plt Count 361 (150-450) k/uL Comprehensive Metabolic Panel 11/09/17 Range/Units 16:20 Sodium 137 (137-145) mmol/L Potassium 3.9 (3.5-5.1) mmol/L Chloride 102 (98-107) mmol/L Carbon Dioxide 24 (22-30) mmol/L BUN 14 (9-20) mg/dL Creatinine 0.86 (0.66-1.25) mg/dL Glucose 147 H (74-99) mg/dL Calcium 9.6 (8.4-10.2) mg/dL AST 25 (17-59) U/L ALT 23 (21-72) U/L Alkaline Phosphatase 96 (38-126) U/L Total Protein 6.8 (6.3-8.2) g/dL Albumin 4.0 (3.5-5.0) g/dL Current Medications Generic Name Dose Route Start Last Admin Trade Name Freq PRN Reason Stop Dose Admin Acetaminophen 650 mg 11/09/17 18:50 Tylenol Tab PO Q6HR PRN Mild Pain or Fever > 100.5 Colchicine 0.6 mg 11/10/17 09:00 11/10/17 09:34 Colcrys PO 0.6 mg DAILY JOSAFAT Administration Furosemide 20 mg 11/10/17 09:00 11/10/17 09:33 Lasix PO 20 mg DAILY JOSAFAT Administration Sodium Chloride 1,000 mls @ 20 mls/hr 11/09/17 19:00 11/09/17 21:42 Saline 0.9% IV Not Given .Q24H JOSAFAT Lisinopril 2.5 mg 11/10/17 09:00 11/10/17 09:33 Zestril PO 2.5 mg DAILY JOSAFAT Administration Metoprolol Tartrate 100 mg 11/10/17 09:00 11/10/17 09:33 Lopressor PO 100 mg BID JOSAFAT Administration Naloxone HCl 0.2 mg 11/09/17 18:50 Narcan IV Q2M PRN Opioid Reversal Warfarin Sodium 4 mg 11/10/17 18:00 Coumadin PO DAILY@1800 JOSAFAT Intake and Output 11/09/17 11/10/17 11/10/17 22:59 06:59 14:59 Intake Total 240 180 Balance 240 180 Intake: Oral 240 180 Other: Voiding Method Toilet Toilet # Voids 1 1 Weight 69.9 kg 69.9 kg 11/09/17 16:20 11/09/17 16:20
[2017-11-10] MEDS ORDERED: HYDROXYUREA 500 MG CAP PO ONE (12:45)
--- NOTE | 2017-11-10 13:31 | P.HPIM ---
History of Present Illness H&P Date: 11/10/17 Chief Complaint: Afib with RVR This is a 57 years old male patient of Dr. Hensley with a past medical history of atrial flutter/fibrillation, nonischemic cardiomyopathy secondary to atrial fibrillation, history of bone cancer currently on chemotherapy, hypertension, hyperlipidemia presents in with shortness of breath and chest tightness and was found to be in A.Fib with RVR, he was kept on Metoprolol and was admitted to the hospital for optimization of A.Fib treatment and to Rule out ischemic event. Patient was seen in consultation by cardiology was recommended for the patient to be started back on heparin drip as well as Coumadin because the INR subtherapeutic and the the definite of treatment is to go for atrial flutter ablation after his INR is therapeutic for quite sometime and the patient will be kept in the hospital until further evaluation. Review of Systems Constitutional: Denies chronic headaches, Denies chronic pain, Denies lethargy, Denies weight gain, Denies weight loss Eyes: left loss of vision Ears, nose, mouth and throat: Denies dysphagia, Denies epistaxis, Denies neck lump, Denies sore throat, Denies vertigo Cardiovascular: Reports irregular heart beat, Denies chest pain, Denies decreased exercise tolerance, Denies dyspnea on exertion, Denies phlebitis, Denies rapid heart beat, Denies shortness of breath Respiratory: Denies congestion, Denies cough with sputum, Denies home oxygen, Denies sleep apnea, Denies snoring, Denies wheezing Gastrointestinal: Denies belching, Denies BRBPR, Denies heartburn, Denies melena , Denies nausea, Denies vomiting Genitourinary: Denies dysuria, Denies nocturia, Denies polyuria Musculoskeletal: Denies myalgias Musculoskeletal: absent: ankle pain, ankle stiffness, ankle swelling, elbow pain , elbow stiffness, elbow swelling, foot pain, foot stiffness, foot swelling, hand pain, hand stiffness, hand swelling, hip pain, hip stiffness, hip swelling , knee pain, knee stiffness, knee swelling, shoulder pain, shoulder stiffness, shoulder swelling, wrist pain, wrist stiffness, wrist swelling Integumentary: Denies pruritus, Denies rash Neurological: Denies numbness, Denies weakness Psychiatric: Denies anxiety, Denies depression Endocrine: Denies fatigue, Denies weight change Past Medical History Past Medical History: Atrial Fibrillation, Blood Disorder, Cancer, Heart Failure , GERD/Reflux, Hyperlipidemia, Hypertension, Osteoarthritis (OA), Syncope Additional Past Medical History / Comment(s): Afib with past RVR, nonischemic cardiomyopathy, 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 History of Any Multi-Drug Resistant Organisms: None Reported Past Surgical History: Heart Catheterization, Orthopedic Surgery Additional Past Surgical History / Comment(s): 08/21/16 cardioversion, 03/07/16 cardiac cath, colonoscopy with benign polypectomy, EGD due to hiatal hernia obstruction, jaw surgery, L eye optic nerve surgery twice, R eye optic nerve surgery once. Past Anesthesia/Blood Transfusion Reactions: No Reported Reaction Past Psychological History: No Psychological Hx Reported Additional Psychological History / Comment(s): Pt resides with his spouse. He works midnights at [employer]. He drives. Smoking Status: Never smoker Past Alcohol Use History: Occasional Past Drug Use History: None Reported Additional Drug Use History / Comment(s): pt states he drinks 3-4 beers a day. - Past Family History Mother Family Medical History: Cancer (mother at age 68 from breast cancer with metastases to the bone) Additional Family Medical History / Comment(s): BREAST/BONE CANCER. Father Family Medical History: Coronary Artery Disease (CAD), CVA/TIA (father at age of 80 from the CVA post CABG.) Additional Family Medical History / Comment(s): Father had CABG and a CVA post op that took his life. Brother(s) Family Medical History: No Reported History (patient had 3 brothers one of them from liver failure and renal failure due to alcoholism.) Daughter(s) Family Medical History: No Reported History (patient has one daughter 21-year- old no major medical problems.) Medications and Allergies Home Medications Medication Instructions Recorded Confirmed Type Allopurinol [Zyloprim] 100 mg PO DAILY 06/18/16 11/09/17 History Lisinopril [Zestril] 2.5 mg PO DAILY 06/18/16 11/09/17 History Metoprolol Tartrate [Lopressor] 100 mg PO BID 06/18/16 11/09/17 History traMADol HCL [Ultram] 50 mg PO TID 06/18/16 11/09/17 History Colchicine [Colcrys] 0.6 mg PO DAILY 04/26/17 11/09/17 History Hydroxyurea [Hydrea] 500 - 1,000 mg PO DIRECTED 06/20/17 11/09/17 History Warfarin Sodium [Coumadin] 4 mg PO DAILY 06/20/17 11/09/17 History Albuterol Inhaler [Ventolin Hfa 1 - 2 puff INHALATION Q6HR PRN 11/09/17 History Inhaler] Furosemide [Lasix] 20 mg PO DAILY 11/09/17 11/09/17 History Hydroxyurea [Hydrea] 500 mg PO BID 11/09/17 11/09/17 History Spironolactone [Aldactone] 12.5 mg PO DAILY 11/09/17 11/09/17 History Allergies Allergy/AdvReac Type Severity Reaction Status Date / Time No Known Allergies Allergy Verified 11/09/17 16:34 Physical Exam Vitals: Vital Signs Temp Pulse Pulse Resp BP BP Pulse Ox 11/10/17 04:00 87 16 119/81 99 11/10/17 03:38 83 11/10/17 00:00 114 H 16 112/66 99 11/09/17 21:30 85 18 104/71 99 11/09/17 20:54 97.8 F 85 16 131/73 97 11/09/17 19:35 81 18 105/63 9 L 11/09/17 17:17 116 H 18 101/77 98 11/09/17 16:46 130 H 18 104/79 98 11/09/17 16:06 97.5 F L 126 H 16 91/56 98 Intake and Output 11/09/17 11/10/17 11/10/17 22:59 06:59 14:59 Intake Total 240 Balance 240 Intake: Oral 240 Other: Voiding Method Toilet # Voids 1 1 Weight 69.9 kg 69.9 kg - Constitutional General appearance: no acute distress - EENT Eyes: anicteric sclerae, EOMI, PERRLA, no ptosis, no scleral icterus, no normal appearance ENT: hearing grossly normal, NA/AT, normal oropharynx, no thrush Ears: bilateral: normal - Neck Neck: no lymphadenopathy, normal ROM, no rigidity, no stridor, no thyromegaly Carotids: bilateral: upstroke normal Thyroid: bilateral: normal size - Respiratory Respiratory: bilateral: diminished, negative: dullness, rales, rhonchi, wheezing , prolonged expiration, prolonged inspiration - Cardiovascular Rhythm: regular Heart sounds: normal: S1, S2 Abnormal Heart Sounds: no systolic murmur, S3 Gallop - Gastrointestinal General gastrointestinal: normal bowel sounds, soft, no splenomegaly, no tenderness, no umbilical hernia - Integumentary Integumentary: normal, normal turgor - Neurologic Neurologic: CNII-XII intact - Musculoskeletal Musculoskeletal: gait normal - Psychiatric Psychiatric: A&O x's 3, appropriate affect, intact judgment & insight Results CBC & Chem 7: 11/09/17 16:20 11/09/17 16:20 Labs: Abnormal Lab Results - Last 24 Hours (Table) 11/09/17 11/09/17 11/09/17 Range/Units 16:20 16:20 16:20 RBC 3.28 L (4.30-5.90) m/uL MCV 121.3 H (80.0-100.0) fL MCH 42.9 H (25.0-35.0) pg PT 13.0 H (9.0-12.0) sec INR 1.4 H (<1.2) Glucose 147 H (74-99) mg/dL Total Bilirubin 1.4 H (0.2-1.3) mg/dL Total Creatine Kinase (55-170) U/L Troponin I (0.000-0.034) ng/mL 11/09/17 11/10/17 11/10/17 Range/Units 22:11 05:28 05:28 RBC (4.30-5.90) m/uL MCV (80.0-100.0) fL MCH (25.0-35.0) pg PT 12.4 H (9.0-12.0) sec INR 1.3 H (<1.2) Glucose (74-99) mg/dL Total Bilirubin (0.2-1.3) mg/dL Total Creatine Kinase 44 L 41 L (55-170) U/L Troponin I 0.047 H* (0.000-0.034) ng/mL Thrombosis Risk Factor Assmnt - DVT/VTE Prophylaxis DVT/VTE Prophylaxis: Pharmacologic Prophylaxis ordered - Choose All That Apply Any of the Below Risk Factors Present?: Yes Each Factor Represents 1 point: Age 41-60 years Other Risk Factors: No Other congenital or acquired thrombophilia - If yes, enter type in comment: No Thrombosis Risk Factor Assessment Total Risk Factor Score: 1 Thrombosis Risk Factor Assessment Level: Low Risk Assessment and Plan Assessment: Assessment and plan: 1. Atrial flutter/fibrillation with rapid ventricular response. Continue patient on metoprolol 100 mg orally twice every day, continue patient on Coumadin 4 mg orally once a bedtime, patient will be started on either heparin drip or Lovenox for bridging until his INR therapeutic. Patient will need to go for atrial flutter ablation as a definitive treatment. 2. Nonischemic cardiomyopathy. Continue lisinopril 2.5 mg orally once every day, metoprolol 100 mg orally twice every day, Lasix 20 mg orally once every day , Spironolactone 25 mg orally once every day. 3. Hypertension and hypertensive cardiovascular disease. Continue metoprolol 100 mg orally twice every day, lisinopril 2.5 mg orally once every day. 4. Gout. Continue courses seen 0.6 mg orally once every day. 5. Essential thrombocytosis. Continue patient on hydroxyurea. 6. Left eye legal blindness. 7. Admit to inpatient. Estimate length of stay 2 midnights. 8. Patient is full code. 9. DVT prophylaxis. Currently on Coumadin and Lovenox.
[2017-11-10] MEDS ORDERED: WARFARIN 2 MG TAB PO SCH (18:00)
[2017-11-10] MEDS: SODIUM CHLORIDE 0.9% 1,000 ML IV SCH (20:47)
[2017-11-10] MEDS: ENOXAPARIN 80 MG/0.8 ML SYRINGE SQ SCH (20:51)
[2017-11-10] MEDS: HYDROXYUREA 500 MG CAP PO SCH (20:51)
[2017-11-11 06:12] LABS: INR 1.2 (<1.2); Prothrombin Time 11.4 sec (9.0-12.0)
[2017-11-11 06:13] LABS: Anion Gap 5 mmol/L; Blood Urea Nitrogen 15 mg/dL (9-20); Carbon Dioxide 30 mmol/L (22-30); Chloride 106 mmol/L (98-107); Glucose 100 mg/dL (74-99); Potassium 4.5 mmol/L (3.5-5.1); Sodium 141 mmol/L (137-145)
[2017-11-11 06:14] LABS: ALT 26 U/L (21-72); AST 25 U/L (17-59); Albumin 3.3 g/dL (3.5-5.0); Alkaline Phosphatase 72 U/L (38-126); Total Bilirubin 1.2 mg/dL (0.2-1.3)
[2017-11-11 06:18] LABS: HCT 41.7 % (39.0-53.0); HGB 13.5 gm/dL (13.0-17.5); MCH 41.7 pg (25.0-35.0); MCHC 32.4 g/dL (31.0-37.0); Macrocytosis Marked; Mean Platelet Volume 7.5; Platelet Count 280 k/uL (150-450); RBC 3.24 m/uL (4.30-5.90); RDW 15.2 % (11.5-15.5); WBC 7.8 k/uL (3.8-10.6)
[2017-11-11 06:19] LABS: MCV 128.7 fL (80.0-100.0)
[2017-11-11 06:36] LABS: Eosinophils # (M) 0.16 k/uL (0-0.7); Monocytes # (M) 0.55 k/uL (0-1.0); Neutrophils # (M) 5.69 k/uL (1.3-7.7); Neutrophils % (M) 73 %; Nucleated Red Blood Cells 0 /100 WBC (0-0); Total Cells Counted 100
[2017-11-11 06:38] LABS: Polychromasia Present
[2017-11-11] MEDS: ENOXAPARIN 80 MG/0.8 ML SYRINGE SQ SCH ×2 (08:50→21:04)
[2017-11-11] MEDS: METOPROLOL TARTRATE 50 MG TAB PO SCH ×2 (08:51→21:05)
[2017-11-11] MEDS: COLCHICINE 0.6 MG EACH PO SCH (08:51)
[2017-11-11] MEDS: FUROSEMIDE 20 MG TAB PO SCH (08:51)
[2017-11-11] MEDS: LISINOPRIL 2.5 MG TAB PO SCH (08:51)
[2017-11-11] MEDS: HYDROXYUREA 500 MG CAP PO SCH ×2 (08:52→21:05)
--- NOTE | 2017-11-11 09:42 | P.PN ---
Subjective Progress Note Date: 11/11/17 This is a 57 years old male patient of Dr. Hensley with a past medical history of atrial flutter/fibrillation, nonischemic cardiomyopathy secondary to atrial fibrillation, history of bone cancer currently on chemotherapy, hypertension, hyperlipidemia presents in with shortness of breath and chest tightness and was found to be in A.Fib with RVR, he was kept on Metoprolol and was admitted to the hospital for optimization of A.Fib treatment and to Rule out ischemic event. Patient was seen in consultation by cardiology was recommended for the patient to be started back on heparin drip as well as Coumadin because the INR subtherapeutic and the the definite of treatment is to go for atrial flutter ablation after his INR is therapeutic for quite sometime and the patient will be kept in the hospital until further evaluation. 11/11: Patient was started on Lovenox and Coumadin yesterday he continues to be somewhat therapeutic he will be given 5 mg tonight and recheck his INR tomorrow morning when the patient's INR is therapeutic he can be discharged home and follow-up as an outpatient with cardiology for atrial flutter ablation, patient at this time has no chest pain or shortness breath has no complaint. Objective - Vital Signs Vital signs: Vital Signs Temp 96.3 F L 11/11/17 04:00 Pulse 83 11/11/17 04:00 Resp 18 11/11/17 04:00 BP 125/73 11/11/17 04:00 Pulse Ox 99 11/11/17 04:00 Intake & Output 11/10/17 11/11/17 11/11/17 18:59 06:59 18:59 Intake Total 650 200 360 Output Total 450 Balance 200 200 360 Weight 69.1 kg Intake: Intake, IV Titration 0 Amount Sodium Chloride 0.9% 1, 0 000 ml @ 20 mls/hr IV . Q24H [facility] Rx#:[id number] Oral 650 200 360 Output: Urine 450 Other: Voiding Method Toilet Toilet # Voids 1 - Exam - Constitutional General appearance: no acute distress - EENT Eyes: anicteric sclerae, EOMI, PERRLA, no ptosis, no scleral icterus, no normal appearance ENT: hearing grossly normal, NA/AT, normal oropharynx, no thrush Ears: bilateral: normal - Neck Neck: no lymphadenopathy, normal ROM, no rigidity, no stridor, no thyromegaly Carotids: bilateral: upstroke normal Thyroid: bilateral: normal size - Respiratory Respiratory: bilateral: diminished, negative: dullness, rales, rhonchi, wheezing , prolonged expiration, prolonged inspiration - Cardiovascular Rhythm: regular Heart sounds: normal: S1, S2 Abnormal Heart Sounds: no systolic murmur, S3 Gallop - Gastrointestinal General gastrointestinal: normal bowel sounds, soft, no splenomegaly, no tenderness, no umbilical hernia - Integumentary Integumentary: normal, normal turgor - Neurologic Neurologic: CNII-XII intact - Musculoskeletal Musculoskeletal: gait normal - Psychiatric Psychiatric: A&O x's 3, appropriate affect, intact judgment & insight - Labs CBC & Chem 7: 11/11/17 05:24 11/11/17 05:24 Labs: Abnormal Lab Results - Last 24 Hours (Table) 11/11/17 11/11/17 11/11/17 Range/Units 05:24 05:24 05:24 RBC 3.24 L (4.30-5.90) m/uL MCV 128.7 H D (80.0-100.0) fL MCH 41.7 H (25.0-35.0) pg INR 1.2 H (<1.2) Glucose 100 H (74-99) mg/dL Total Protein 6.0 L (6.3-8.2) g/dL Albumin 3.3 L (3.5-5.0) g/dL Assessment and Plan Assessment: Assessment and plan: 1. Atrial flutter/fibrillation with rapid ventricular response. Continue patient on metoprolol 100 mg orally twice every day, continue patient on Coumadin 5 mg orally once a bedtime, Lovenox for bridging until his INR therapeutic. Patient will need to go for atrial flutter ablation as a definitive treatment. 2. Nonischemic cardiomyopathy by history currently ejection fraction 55% Continue lisinopril 2.5 mg orally once every day, metoprolol 100 mg orally twice every day, Lasix 20 mg orally once every day, Spironolactone 25 mg orally once every day. 3. Hypertension and hypertensive cardiovascular disease. Continue metoprolol 100 mg orally twice every day, lisinopril 2.5 mg orally once every day. 4. Gout. Continue courses seen 0.6 mg orally once every day. 5. Essential thrombocytosis. Continue patient on hydroxyurea. 6. Left eye legal blindness. 7. Patient is full code. 8. DVT prophylaxis. Currently on Coumadin and Lovenox. 9. Hopefully home in the next 24 hours.
[2017-11-11] MEDS: FLECAINIDE 50 MG TAB PO SCH ×2 (10:40→21:05)
--- NOTE | 2017-11-11 10:51 | P.PN ---
Subjective Mr. Ocampo is seen and examined resting comfortably in bed in no acute distress. Telemetry indicates atrial fibrillation with rapid ventricular response. Denies chest pain, shortness of breath, dizziness or palpitations. INR 1.2, hemoglobin 13.5, sodium 141, potassium 4.5, creatinine 0.96, TSH 1.62. He is maintained on Lovenox and Coumadin. He will need an atrial flutter ablation which has been tentatively scheduled for . GENERAL: Well-appearing, well-nourished and in no acute distress. NECK: Supple without JVD or thyromegaly. LUNGS: Breath sounds clear to auscultation bilaterally. Respiration equal and unlabored. No wheezes, rales or rhonchi. HEART: Irregular rate and rhythm without murmurs, rubs or gallops. S1 and S2 heard. EXTREMITIES: Normal range of motion, no edema. No clubbing or cyanosis. Peripheral pulses intact. ASSESSMENT Atrial flutter with rapid ventricular response, symptomatic and recurrent Atrial flutter degenerated to atrial fibrillation Subtherapeutic INR Leukemia Hypertension History of nonischemic cardiomyopathy PLAN Continue with Lovenox as well as Coumadin 5 mg daily until INR therapeutic 2-3. Add flecainide 50 mg twice a day. Continue Lopressor 100 mg twice a day and lisinopril 2.5 mg daily. Further recommendations to follow based on clinical course. Nurse Practitioner note has been reviewed, I agree with a documented findings and plan of care. Patient was seen and examined. Objective - Vital Signs Vital signs: Vital Signs Temp 96.6 F L 11/11/17 08:00 Pulse 80 11/11/17 08:00 Resp 18 11/11/17 08:00 BP 100/62 11/11/17 08:00 Pulse Ox 100 11/11/17 08:00 Intake & Output 11/10/17 11/11/17 11/11/17 18:59 06:59 18:59 Intake Total 650 200 360 Output Total 450 Balance 200 200 360 Weight 69.1 kg Intake: Intake, IV Titration 0 Amount Sodium Chloride 0.9% 1, 0 000 ml @ 20 mls/hr IV . Q24H [facility] Rx#:[id number] Oral 650 200 360 Output: Urine 450 Other: Voiding Method Toilet Toilet Toilet # Voids 1 - Labs CBC & Chem 7: 11/11/17 05:24 11/11/17 05:24 Labs: Abnormal Lab Results - Last 24 Hours (Table) 11/11/17 11/11/17 11/11/17 Range/Units 05:24 05:24 05:24 RBC 3.24 L (4.30-5.90) m/uL MCV 128.7 H D (80.0-100.0) fL MCH 41.7 H (25.0-35.0) pg INR 1.2 H (<1.2) Glucose 100 H (74-99) mg/dL Total Protein 6.0 L (6.3-8.2) g/dL Albumin 3.3 L (3.5-5.0) g/dL
[2017-11-11] MEDS ORDERED: WARFARIN 5 MG TAB PO SCH (18:00)
[2017-11-11] MEDS: SODIUM CHLORIDE 0.9% 1,000 ML IV SCH (18:39)
[2017-11-12 07:28] LABS: INR 1.3 (<1.2); Prothrombin Time 11.9 sec (9.0-12.0)
[2017-11-12 08:14] LABS: Basophils # (A) 0.1 k/uL (0-0.2); Basophils % (A) 1 %; Eosinophils # (A) 0.1 k/uL (0-0.7); Eosinophils % (A) 1 %; HGB 13.2 gm/dL (13.0-17.5); Lymphocytes # (A) 1.4 k/uL (1.0-4.8); Lymphocytes % (A) 17 %; MCV 129.8 fL (80.0-100.0); Macrocytosis Marked; Monocytes # (A) 0.4 k/uL (0-1.0); Monocytes % (A) 5 %; Neutrophils # (A) 5.9 k/uL (1.3-7.7); Neutrophils % (A) 75 %; Platelet Count 293 k/uL (150-450); RBC 3.08 m/uL (4.30-5.90); RDW 15.2 % (11.5-15.5); WBC 7.9 k/uL (3.8-10.6)
[2017-11-12] MEDS: COLCHICINE 0.6 MG EACH PO SCH (08:30)
[2017-11-12] MEDS: ENOXAPARIN 80 MG/0.8 ML SYRINGE SQ SCH ×2 (08:30→21:10)
[2017-11-12] MEDS: HYDROXYUREA 500 MG CAP PO SCH ×2 (08:31→21:11)
[2017-11-12] MEDS: LISINOPRIL 2.5 MG TAB PO SCH (08:31)
[2017-11-12] MEDS: FLECAINIDE 50 MG TAB PO SCH ×2 (08:31→21:11)
[2017-11-12] MEDS: FUROSEMIDE 20 MG TAB PO SCH (08:31)
[2017-11-12] MEDS: METOPROLOL TARTRATE 50 MG TAB PO SCH ×2 (08:31→21:11)
[2017-11-12 10:10] LABS: Anion Gap 7 mmol/L; Blood Urea Nitrogen 21 mg/dL (9-20); Calcium 8.9 mg/dL (8.4-10.2); Carbon Dioxide 28 mmol/L (22-30); Chloride 106 mmol/L (98-107); Glucose 101 mg/dL (74-99); Potassium 4.6 mmol/L (3.5-5.1); Sodium 141 mmol/L (137-145)
[2017-11-12 10:12] LABS: Anisocytosis (M) Present
[2017-11-12 10:14] LABS: MCH 42.8 pg (25.0-35.0)
--- NOTE | 2017-11-12 12:35 | P.PN ---
Subjective Progress Note Date: 11/12/17 This is a pleasant 57-year-old gentleman who follows with Dr. Hensley in the office, he has known history of prior atrial fibrillation,/flutter, nonischemic cardiomyopathy, history of bone cancer, currently on chemotherapy, hypertension, hyperlipidemia, who presented to the hospital on this occasion with symptoms of shortness of breath. He was found to be in atrial fibrillation with rapid ventricular response, patient was seen and examined today yesterday by Dr. Kwon, he is currently on Lovenox, INRs are subtherapeutic. He was initiated yesterday by Dr. Kwon on flecainide, this morning continues to be in atrial fibrillation. INR remained subtherapeutic at 1.3, we will give him 7-1/2 mg of Coumadin today and dose his Coumadin according to pro times. If the patient continues to be in atrial fibrillation tomorrow he may benefit from NEHEMIAH and cardioversion by Dr. Hensley. As an outpatient Dr. Kwon we'll perform a flutter ablation. Objective - Vital Signs Vital signs: Vital Signs Temp 98.0 F 11/12/17 07:50 Pulse 73 11/12/17 07:50 Resp 16 11/12/17 07:50 BP 104/65 11/12/17 07:50 Pulse Ox 99 11/12/17 07:50 Intake & Output 11/11/17 11/12/17 11/12/17 18:59 06:59 18:59 Intake Total 800 200 240 Output Total 0 Balance 800 200 240 Weight 69.6 kg Intake: Oral 800 200 240 Output: Urine 0 Other: Voiding Method Toilet Toilet # Voids 1 - Exam PHYSICAL EXAMINATION: GENERAL: 57-year-old gentleman in no acute distress at the time of my examination HEENT: Head is atraumatic, normocephalic. Pupils equal, round. Sclera anicteric. Conjunctiva are clear. Mucous membranes of the mouth are moist. Neck is supple. There is no elevated jugular venous pressure.] bruit is heard. HEART EXAMINATION: Heart S1-S2 irregularly irregular CHEST EXAMINATION: Lungs are clear to auscultation and precussion. No chest wall tenderness is noted on palpation or with deep breathing. ABDOMEN: Soft, nontender. Bowel sounds are heard. No organomegaly noted. EXTREMITIES: 2+ peripheral pulses with no evidence of peripheral edema and no calf tenderness noted. NEUROLOGIC patient is awake, alert and oriented ?-3. . 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 We will give the patient 7-1/2 mg of Coumadin today. If the patient continues to be in atrial fibrillation, he may benefit from NEHEMIAH and cardioversion tomorrow which would then be performed by Dr. Hensley. As an outpatient patient will undergo a flutter ablation with Dr. Kwon. We will check PT/INR daily. Continue flecainide. DNP note has been reviewed, I agree with a documented findings and plan of care. Patient was seen and examined.
--- NOTE | 2017-11-12 13:22 | P.PN ---
Subjective This is a 57 years old male patient of Dr. Hensley with a past medical history of atrial flutter/fibrillation, nonischemic cardiomyopathy secondary to atrial fibrillation, history of bone cancer currently on chemotherapy, hypertension, hyperlipidemia presents in with shortness of breath and chest tightness and was found to be in A.Fib with RVR, he was kept on Metoprolol and was admitted to the hospital for optimization of A.Fib treatment and to Rule out ischemic event. Patient was seen in consultation by cardiology was recommended for the patient to be started back on heparin drip as well as Coumadin because the INR subtherapeutic and the the definite of treatment is to go for atrial flutter ablation after his INR is therapeutic for quite sometime and the patient will be kept in the hospital until further evaluation. 11/11: Patient was started on Lovenox and Coumadin yesterday he continues to be somewhat therapeutic he will be given 5 mg tonight and recheck his INR tomorrow morning when the patient's INR is therapeutic he can be discharged home and follow-up as an outpatient with cardiology for atrial flutter ablation, patient at this time has no chest pain or shortness breath has no complaint. 11/12: Patient evaluated on morning rounds. He denies any chest pain or shortness of breath. He was started on Lovenox and Coumadin, today INR today is 1.3, coumadin increased to 7.5mg. He is scheduled for an ablation for his atrial flutter on the . Flecainide was added, will continue on lopressor. Objective - Vital Signs Vital signs: Vital Signs Temp 98.0 F 11/12/17 07:50 Pulse 73 11/12/17 07:50 Resp 16 11/12/17 07:50 BP 104/65 11/12/17 07:50 Pulse Ox 99 11/12/17 07:50 Intake & Output 11/11/17 11/12/17 11/12/17 18:59 06:59 18:59 Intake Total 800 200 240 Output Total 0 Balance 800 200 240 Weight 69.6 kg Intake: Oral 800 200 240 Output: Urine 0 Other: Voiding Method Toilet Toilet # Voids 1 - Exam - Constitutional General appearance: no acute distress - EENT Eyes: anicteric sclerae, EOMI, PERRLA, no ptosis, no scleral icterus, no normal appearance ENT: hearing grossly normal, NA/AT, normal oropharynx, no thrush Ears: bilateral: normal - Neck Neck: no lymphadenopathy, normal ROM, no rigidity, no stridor, no thyromegaly Carotids: bilateral: upstroke normal Thyroid: bilateral: normal size - Respiratory Respiratory: bilateral: diminished, negative: dullness, rales, rhonchi, wheezing , prolonged expiration, prolonged inspiration - Cardiovascular Rhythm: irregular Heart sounds: normal: S1, S2 Abnormal Heart Sounds: no systolic murmur, S3 Gallop - Gastrointestinal General gastrointestinal: normal bowel sounds, soft, no splenomegaly, no tenderness, no umbilical hernia - Integumentary Integumentary: normal, normal turgor - Neurologic Neurologic: CNII-XII intact - Musculoskeletal Musculoskeletal: gait normal - Psychiatric Psychiatric: A&O x's 3, appropriate affect, intact judgment & insight - Labs CBC & Chem 7: 11/12/17 06:49 11/12/17 06:49 Labs: Abnormal Lab Results - Last 24 Hours (Table) 11/12/17 11/12/17 Range/Units 06:49 06:49 RBC 3.08 L (4.30-5.90) m/uL MCV 129.8 H (80.0-100.0) fL MCH 42.8 H (25.0-35.0) pg INR 1.3 H (<1.2) Assessment and Plan Plan: 1. Atrial flutter/fibrillation with rapid ventricular response. Continue patient on metoprolol 100 mg orally twice every day and Flecainide, Coumadin increased to 7.5 mg orally once a bedtime, Lovenox for bridging until his INR therapeutic. Patient will need to go for atrial flutter ablation as a definitive treatment. 2. Nonischemic cardiomyopathy by history currently ejection fraction 55% Continue lisinopril 2.5 mg orally once every day, metoprolol 100 mg orally twice every day, Lasix 20 mg orally once every day, Spironolactone 25 mg orally once every day. 3. Hypertension and hypertensive cardiovascular disease. Continue metoprolol 100 mg orally twice every day, lisinopril 2.5 mg orally once every day. 4. Gout. Continue courses seen 0.6 mg orally once every day. 5. Essential thrombocytosis. Continue patient on hydroxyurea. 6. Left eye legal blindness. 7. Patient is full code. 8. DVT prophylaxis. Currently on Coumadin and Lovenox. 9. Hopefully home in the next 24 hours. The above impression and plan of care have been discussed and directed by signing physician. Iwona Stock nurse practitioner acting as scribe for signing physician.
[2017-11-12] MEDS ORDERED: WARFARIN 7.5 MG TAB PO ONE (18:00)
[2017-11-12] MEDS: SODIUM CHLORIDE 0.9% 1,000 ML IV SCH (18:12)
[2017-11-13 06:52] LABS: INR 1.2 (<1.2); Prothrombin Time 11.9 sec (9.0-12.0)
[2017-11-13] MEDS ORDERED: SODIUM CHLORIDE 0.9% 1,000 ML IV SCH (09:30)
[2017-11-13] MEDS: LISINOPRIL 2.5 MG TAB PO SCH (09:46)
[2017-11-13] MEDS: HYDROXYUREA 500 MG CAP PO SCH ×2 (09:47→20:58)
[2017-11-13] MEDS: ENOXAPARIN 80 MG/0.8 ML SYRINGE SQ SCH (09:50)
[2017-11-13] MEDS: FUROSEMIDE 20 MG TAB PO SCH (09:51)
[2017-11-13] MEDS: COLCHICINE 0.6 MG EACH PO SCH (09:51)
[2017-11-13] MEDS: FLECAINIDE 50 MG TAB PO SCH ×2 (09:51→20:56)
[2017-11-13] MEDS: METOPROLOL TARTRATE 50 MG TAB PO SCH ×2 (09:51→20:56)
[2017-11-13] MEDS ORDERED: LACTATED RINGERS 1,000 ML IV ONE ×2 (11:53)
[2017-11-13] MEDS: BENZOCAINE SPRAY 1 CAN MUCOUS MEM ONE ×2 (12:10→12:15)
[2017-11-13] MEDS ORDERED: PROPOFOL 10 MG/ML 20 ML VIAL IV ONE (12:20)
[2017-11-13] MEDS ORDERED: ePHEDrine SULFATE/0.9% NACL/PF 50 MG/5 ML SYRINGE IV ONE (12:20)
--- NOTE | 2017-11-13 12:54 | P.PN ---
Subjective Progress Note Date: 11/13/17 This is a 57 years old male patient of Dr. Hensley with a past medical history of atrial flutter/fibrillation, nonischemic cardiomyopathy secondary to atrial fibrillation, history of bone cancer currently on chemotherapy, hypertension, hyperlipidemia presents in with shortness of breath and chest tightness and was found to be in A.Fib with RVR, he was kept on Metoprolol and was admitted to the hospital for optimization of A.Fib treatment and to Rule out ischemic event. Patient was seen in consultation by cardiology was recommended for the patient to be started back on heparin drip as well as Coumadin because the INR subtherapeutic and the the definite of treatment is to go for atrial flutter ablation after his INR is therapeutic for quite sometime and the patient will be kept in the hospital until further evaluation. 11/11: Patient was started on Lovenox and Coumadin yesterday he continues to be somewhat therapeutic he will be given 5 mg tonight and recheck his INR tomorrow morning when the patient's INR is therapeutic he can be discharged home and follow-up as an outpatient with cardiology for atrial flutter ablation, patient at this time has no chest pain or shortness breath has no complaint. 11/12: Patient evaluated on morning rounds. He denies any chest pain or shortness of breath. He was started on Lovenox and Coumadin, today INR today is 1.3, coumadin increased to 7.5mg. He is scheduled for an ablation for his atrial flutter on the . Flecainide was added, will continue on lopressor. 11/13: Patient is scheduled for NEHEMIAH and cardioversion today with Dr. Ortega. Dr. Kwon recommends change in the patient eliquis 5 mg twice daily. INR remains only at 1.2. Case management will make arrangements for month free for eliquis. Patient remains in A. fib with a controlled rate. He denies any chest pain or shortness of breath at this time. Objective - Vital Signs Vital signs: Vital Signs Temp 96.3 F L 11/13/17 09:14 Pulse 76 11/13/17 09:19 Resp 12 11/13/17 09:14 BP 106/72 11/13/17 09:14 Pulse Ox 99 11/13/17 09:14 Intake & Output 11/12/17 11/13/1718 18:59 06:59 18:59 Intake Total 720 Output Total 300 Balance 420 Weight 69.3 kg Intake: Oral 720 Output: Urine 300 Other: Voiding Method Toilet # Voids 1 - Exam General appearance: no acute distress - EENT Eyes: anicteric sclerae, EOMI, PERRLA, no ptosis, no scleral icterus, no normal appearance ENT: hearing grossly normal, NA/AT, normal oropharynx, no thrush Ears: bilateral: normal - Neck Neck: no lymphadenopathy, normal ROM, no rigidity, no stridor, no thyromegaly Carotids: bilateral: upstroke normal Thyroid: bilateral: normal size - Respiratory Respiratory: bilateral: diminished, negative: dullness, rales, rhonchi, wheezing , prolonged expiration, prolonged inspiration - Cardiovascular Rhythm: irregular Heart sounds: normal: S1, S2 Abnormal Heart Sounds: no systolic murmur, S3 Gallop - Gastrointestinal General gastrointestinal: normal bowel sounds, soft, no splenomegaly, no tenderness, no umbilical hernia - Integumentary Integumentary: normal, normal turgor - Neurologic Neurologic: CNII-XII intact - Musculoskeletal Musculoskeletal: gait normal - Psychiatric Psychiatric: A&O x's 3, appropriate affect, intact judgment & insight - Labs CBC & Chem 7: 11/12/17 06:49 11/12/17 06:49 Labs: Abnormal Lab Results - Last 24 Hours (Table) 11/13/17 Range/Units 06:23 INR 1.2 H (<1.2) Assessment and Plan Plan: 1. Atrial flutter/fibrillation with rapid ventricular response. Continue patient on metoprolol 100 mg orally twice every day and Flecainide, Coumadin and Lovenox discontinued. NEHEMIAH and cardioversion today with Dr. Skaf. Sarkar started. Patient will need to go for atrial flutter ablation as a definitive treatment with Dr. Kwon as an outpatient. 2. Nonischemic cardiomyopathy by history currently ejection fraction 55% Continue lisinopril 2.5 mg orally once every day, metoprolol 100 mg orally twice every day, Lasix 20 mg orally once every day, Spironolactone 25 mg orally once every day. 3. Hypertension and hypertensive cardiovascular disease. Continue metoprolol 100 mg orally twice every day, lisinopril 2.5 mg orally once every day. 4. Gout. Continue courses seen 0.6 mg orally once every day. 5. Essential thrombocytosis. Continue patient on hydroxyurea. 6. Left eye legal blindness. 7. Patient is full code. 8. DVT prophylaxis. Eliquis to start this evening and Lovenox and Coumadin discontinued. Discharge plan: Home on Sunday. Impression and plan of care have been directed as dictated by the signing physician. Judith Stout nurse practitioner acting as scribe for signing physician.
--- NOTE | 2017-11-13 12:58 | ECHOT ---
TRANSESOPHAGEAL ECHOCARDIOGRAM DATE OF SERVICE: 11/13/2017 PERFORMING PHYSICIAN: Anoop Ortega MD PROCEDURE PERFORMED: Transesophageal echocardiogram. INDICATION: This is a pleasant 57-year-old gentleman with known history of paroxysmal atrial fibrillation, who was admitted to the hospital with atrial fibrillation with RVR. The NEHEMIAH used to rule out intracardiac thrombus before we pursue with a cardioversion. COMPLICATION: None. LEVEL OF SEDATION: Deep sedation was performed with anesthesiologist and HAT CONDITIONER in the room. PROCEDURE DESCRIPTION: After obtaining an informed consent, explaining the procedure, benefits, risks, complications and alternatives, the patient was brought to the transesophageal echocardiogram suite. A pulse oximetry and heart rate monitors were attached to the patient prior to the procedure. The patient's throat was sprayed using lidocaine locally. Following that, the patient was turned into left lateral position. A bite guard was placed and the patient was then sedated with the above doses of Versed and fentanyl in divided doses. Following that, the transesophageal echocardiogram probe was advanced through the bite guard into the mid esophagus where 2-D echocardiogram images as well as color Doppler images of various cardiac structures were obtained. We evaluated the interatrial septum using 2-D echocardiogram, color Doppler, and contrast study. The procedure was completed. There were no complications. FINDINGS: The left ventricular dimension appeared to be within normal limits. The ventricular systolic function is on the low limits of normal with EF around 50%. The right ventricle is dilated. The left atrium and right atrium are dilated. The atrial appendage appeared to be free from any thrombus. The interatrial septum appeared to be intact. The aortic valve is trileaflet valve with mild aortic insufficiency. The mitral valve seems to be normal with moderate MR. Moderate tricuspid regurgitation was seen. The interatrial septum appeared to be intact without any evidence of shunt. CONCLUSION: 1. Low normal left ventricular systolic function with ejection fraction around 50%. 2. Dilated right ventricle with normal function. 3. Moderate biatrial enlargement. 4. Normal left atrial appendage without any evidence of thrombus. 5. Intact interatrial septum without any evidence of shunt. 6. Trileaflet aortic valve without stenosis with mild insufficiency. 7. Thickened mitral valve leaflets with moderate mitral regurgitation. 8. Moderate tricuspid regurgitation. 9. No evidence of pericardial effusion. MMODL / IJN: [id number] /
--- NOTE | 2017-11-13 12:58 | CE ---
CARDIAC ELECTROPHYSIOLOGY REPORT DATE OF SERVICE: 11/13/2017. PERFORMING PHYSICIAN: Anoop Ortega MD PROCEDURE PERFORMED: Cardioversion of atrial fibrillation. INDICATION: This is a pleasant 57-year-old gentleman with known history of cardiomyopathy with normal left ventricular systolic function on the last echocardiogram as well as history of paroxysmal atrial fibrillation, who presented to the hospital with A. fib with RVR. He was seen and evaluated by Dr. Kwon who recommended doing cardioversion. COMPLICATION: None. LEVEL OF SEDATION: Deep sedation was performed with SLUDGE MILL OPERATOR and anesthesiologist in the room. PROCEDURE DESCRIPTION: After NEHEMIAH was performed and left atrial appendage thrombus was ruled out. We proceeded with cardioversion. The patient cardioverted from atrial fibrillation to normal sinus mechanism using 200 joules on first attempt. CONCLUSION: Successful cardioversion of atrial fibrillation to normal sinus mechanism using 200 joules on first attempt. MMODL / IJN: [id number] /
[2017-11-13] MEDS: SODIUM CHLORIDE 0.9% 1,000 ML IV SCH (18:18)
[2017-11-13] MEDS: APIXABAN 5 MG TAB PO SCH (20:56)
[2017-11-14] MEDS: FUROSEMIDE 20 MG TAB PO SCH (09:05)
[2017-11-14] MEDS: APIXABAN 5 MG TAB PO SCH (09:05)
[2017-11-14] MEDS: METOPROLOL TARTRATE 50 MG TAB PO SCH (09:06)
[2017-11-14] MEDS: LISINOPRIL 2.5 MG TAB PO SCH (09:06)
[2017-11-14] MEDS: FLECAINIDE 50 MG TAB PO SCH (09:06)
[2017-11-14] MEDS: HYDROXYUREA 500 MG CAP PO SCH (09:08)
[2017-11-14] MEDS: COLCHICINE 0.6 MG EACH PO SCH (09:09)
[2017-11-14 09:16] VITALS: BP 117/69; PULSE 60; RESP 16; TEMP 97.1
--- NOTE | 2017-11-14 12:09 | P.DS ---
Providers Date of admission: 11/09/17 18:54 Expected date of discharge: 11/14/17 Attending physician: Gina Camacho Consults: 11/09/17 18:53 Consult Physician Routine Consulting Provider: Anoop Ortega Consult Reason/Comments: A-fib, RVR Do you want consulting provider notified?: Yes Primary care physician: [facility] Course: This is a 57 years old male patient of Dr. Hensley with a past medical history of atrial flutter/fibrillation, nonischemic cardiomyopathy secondary to atrial fibrillation, history of bone cancer currently on chemotherapy, hypertension, hyperlipidemia presents in with shortness of breath and chest tightness and was found to be in A.Fib with RVR, he was kept on Metoprolol and was admitted to the hospital for optimization of A.Fib treatment and to Rule out ischemic event. Patient was seen in consultation by cardiology was recommended for the patient to be started back on heparin drip as well as Coumadin because the INR subtherapeutic and the the definite of treatment is to go for atrial flutter ablation after his INR is therapeutic for quite sometime and the patient will be kept in the hospital until further evaluation. 11/11: Patient was started on Lovenox and Coumadin yesterday he continues to be somewhat therapeutic he will be given 5 mg tonight and recheck his INR tomorrow morning when the patient's INR is therapeutic he can be discharged home and follow-up as an outpatient with cardiology for atrial flutter ablation, patient at this time has no chest pain or shortness breath has no complaint. 11/12: Patient evaluated on morning rounds. He denies any chest pain or shortness of breath. He was started on Lovenox and Coumadin, today INR today is 1.3, coumadin increased to 7.5mg. He is scheduled for an ablation for his atrial flutter on the . Flecainide was added, will continue on lopressor. 11/13: Patient is scheduled for NEHEMIAH and cardioversion today with Dr. Ortega. Dr. Kwon recommends change in the patient eliquis 5 mg twice daily. INR remains only at 1.2. Case management will make arrangements for month free for eliquis. Patient remains in A. fib with a controlled rate. He denies any chest pain or shortness of breath at this time. 11/14: Patient underwent successful cardioversion yesterday and remains in a sinus rhythm. He has been cleared for discharge by Dr. Bradford. Patient will be discharged home today and stable condition. Discharge diagnoses: 1. Atrial flutter degenerates to atrial fibrillation with rapid ventricular response, recurrent a fib. 2. Nonischemic cardiomyopathy by history currently ejection fraction 55% 3. Hypertension and hypertensive cardiovascular disease. 4. Gout, stable. 5. Essential thrombocytosis. 6. Left eye legal blindness. Plan: Return home Impression and plan of care have been directed as dictated by the signing physician. Judith Stout nurse practitioner acting as scribe for signing physician. Patient Condition at Discharge: Good Plan - Discharge Summary Discharge Rx Participant: No New Discharge Prescriptions: New Apixaban [Eliquis] 5 mg PO BID #60 tab Flecainide [Tambocor] 50 mg PO Q12HR #60 tab Continue traMADol HCL [Ultram] 50 mg PO TID Lisinopril [Zestril] 2.5 mg PO DAILY Allopurinol [Zyloprim] 100 mg PO DAILY Metoprolol Tartrate [Lopressor] 100 mg PO BID Colchicine [Colcrys] 0.6 mg PO DAILY Hydroxyurea [Hydrea] 500 - 1,000 mg PO DIRECTED Albuterol Inhaler [Ventolin Hfa Inhaler] 1 - 2 puff INHALATION Q6HR PRN PRN Reason: Shortness Of Breath Hydroxyurea [Hydrea] 500 mg PO BID Furosemide [Lasix] 20 mg PO DAILY Discontinued Warfarin Sodium [Coumadin] 4 mg PO DAILY Spironolactone [Aldactone] 12.5 mg PO DAILY Discharge Medication List Allopurinol [Zyloprim] 100 mg PO DAILY 06/18/16 [History] Lisinopril [Zestril] 2.5 mg PO DAILY 06/18/16 [History] Metoprolol Tartrate [Lopressor] 100 mg PO BID 06/18/16 [History] traMADol HCL [Ultram] 50 mg PO TID 06/18/16 [History] Colchicine [Colcrys] 0.6 mg PO DAILY 04/26/17 [History] Hydroxyurea [Hydrea] 500 - 1,000 mg PO DIRECTED 06/20/17 [History] Albuterol Inhaler [Ventolin Hfa Inhaler] 1 - 2 puff INHALATION Q6HR PRN 09/14/ 18 [History] Furosemide [Lasix] 20 mg PO DAILY 11/09/17 [History] Hydroxyurea [Hydrea] 500 mg PO BID 11/09/17 [History] Apixaban [Eliquis] 5 mg PO BID #60 tab 11/14/17 [Rx] Flecainide [Tambocor] 50 mg PO Q12HR #60 tab 11/14/17 [Rx] Follow up Appointment(s)/Referral(s): Adolfo Morrell MD [Primary Care Provider] - 11/22/17 2:45 pm Anoop Ortega MD [STAFF PHYSICIAN] - 11/27/17 3:00 pm Patient Instructions/Handouts: A-fib (Atrial Fibrillation) (DC), Safe Use of Anticoagulants (DC) Discharge Disposition: HOME SELF-CARE
--- NOTE | 2017-11-14 12:22 | P.PN ---
Subjective Progress Note Date: 11/14/17 This is a pleasant 57-year-old gentleman who follows with Dr. Hensley in the office, he has known history of prior atrial fibrillation,/flutter, nonischemic cardiomyopathy, history of bone cancer, currently on chemotherapy, hypertension, hyperlipidemia, who presented to the hospital on this occasion with symptoms of shortness of breath. He was found to be in atrial fibrillation with rapid ventricular response, patient was seen and examined today yesterday by Dr. Kwon, he is currently on Lovenox, INRs are subtherapeutic. He was initiated yesterday by Dr. Kwon on flecainide, this morning continues to be in atrial fibrillation. INR remained subtherapeutic at 1.3, we will give him 7-1/2 mg of Coumadin today and dose his Coumadin according to pro times. If the patient continues to be in atrial fibrillation tomorrow he may benefit from NEHEMIAH and cardioversion by Dr. Hensley. As an outpatient Dr. Kwon we'll perform a flutter ablation. 11/14/2017 Patient was taken down yesterday where he underwent transesophageal echocardiographic study and subsequent cardioversion. This morning remains in normal sinus rhythm with a heart rate in the 60s. He's been ambulating in the hallway, feels well overall. Blood pressure 116/60 with a heart rate in the 60s , 100% on room air O2 sat. Objective - Vital Signs Vital signs: Vital Signs Temp 97.1 F L 11/14/17 08:00 Pulse 60 11/14/17 08:00 Resp 16 11/14/17 08:00 BP 117/69 11/14/17 08:00 Pulse Ox 100 11/14/17 08:00 Intake & Output 11/13/17 11/14/17 11/14/17 18:59 06:59 18:59 Intake Total 890 300 180 Balance 890 300 180 Weight 70.3 kg Intake: IV 650 Oral 240 300 180 Other: Voiding Method Toilet Toilet # Voids 1 - Exam PHYSICAL EXAMINATION: GENERAL: 57-year-old gentleman in no acute distress at the time of my examination HEENT: Head is atraumatic, normocephalic. Pupils equal, round. Sclera anicteric. Conjunctiva are clear. Mucous membranes of the mouth are moist. Neck is supple. There is no elevated jugular venous pressure.] bruit is heard. HEART EXAMINATION: Heart S1-S2 irregularly irregular CHEST EXAMINATION: Lungs are clear to auscultation and precussion. No chest wall tenderness is noted on palpation or with deep breathing. ABDOMEN: Soft, nontender. Bowel sounds are heard. No organomegaly noted. EXTREMITIES: 2+ peripheral pulses with no evidence of peripheral edema and no calf tenderness noted. NEUROLOGIC patient is awake, alert and oriented ?-3. . 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 He may be able to be discharged home from cardiology's perspective to follow-up in the office post discharge. He will be scheduled by Dr. Kwon as an outpatient to undergo an ablation down the road. Follow-up appointment will be made with Dr. Hensley. DNP note has been reviewed, I agree with a documented findings and plan of care. Patient was seen and examined.
--- NOTE | 2017-11-14 12:49 | P.PN ---
Progress Note - Text Atrial flutter ablation scheduled for November 19. Patient instructed to continue up expand 5 g twice daily. DC Coumadin DC Lovenox. May go home today and follow with Dr. Hensley as scheduled
== END 2017-11-14 12:29 | disposition home or self-care (01) | DRG 309 ==
LOC: EC 16:04 → 6SEL 18:54
PROVIDERS: ADMIT Internal Medicine; ATTEND Internal Medicine
PROC: B246ZZ4 Ultrasonography of Right and Left Heart, Transesophageal (ICD-10-PCS; 2017-11-13)
PROC: 5A2204Z Restoration of Cardiac Rhythm, Single (ICD-10-PCS; principal; 2017-11-13 11:10)
DX: I48.3 Typical atrial flutter (principal); C41.9 Malignant neoplasm of bone and articular cartilage, unspecified; I48.0 Paroxysmal atrial fibrillation; I42.8 Other cardiomyopathies; H54.8 Legal blindness, as defined in USA; D47.3 Essential (hemorrhagic) thrombocythemia; E78.5 Hyperlipidemia, unspecified; I25.10 Atherosclerotic heart disease of native coronary artery without angina pectoris; I50.9 Heart failure, unspecified; I11.0 Hypertensive heart disease with heart failure; K21.9 Gastro-esophageal reflux disease without esophagitis; M10.9 Gout, unspecified; R79.1 Abnormal coagulation profile; Z79.01 Long term (current) use of anticoagulants; Z80.8 Family history of malignant neoplasm of other organs or systems; Z82.3 Family history of stroke; Z82.49 Family history of ischemic heart disease and other diseases of the circulatory system; Z80.3 Family history of malignant neoplasm of breast; R13.10 Dysphagia, unspecified; K44.9 Diaphragmatic hernia without obstruction or gangrene; Z86.010 Personal history of colon polyps; Z79.899 Other long term (current) drug therapy; H55.00 Unspecified nystagmus
CPT/HCPCS: 36415; 71046; 80048; 80053; 82550; 82553; 83735; 83880; 84443; 84484; 85025; 85610; 85730; 92960; 93005; 93312; 93320; 93325; 96361; 96374; 96376; 99285

== ENCOUNTER 2017-11-19 12:20 | Day surgery (SDC) | payer OTHER ==
[2017-11-19] MEDS ORDERED: LIDOCAINE 1% INJ 10MG/ML (20 ML MDV) ONE (13:33)
[2017-11-19] MEDS ORDERED: SUCCINYLCHOLINE CHLORIDE 100 MG/5 ML SYR IV ONE (13:33)
[2017-11-19] MEDS ORDERED: PROPOFOL 10 MG/ML 20 ML VIAL IV ONE (13:33)
[2017-11-19] MEDS ORDERED: ePHEDrine SULFATE/0.9% NACL/PF 50 MG/5 ML SYRINGE IV ONE (13:33)
[2017-11-19] MEDS ORDERED: ISOPROTERENOL 250 MCG/1.25 ML SYR IV ONE (13:33)
[2017-11-19] MEDS ORDERED: fentaNYL (PF) 50 MCG/ML 2 ML AMP ONE (13:33)
[2017-11-19] MEDS ORDERED: PHENYLEPHRINE-0.9% NACL SYG 1 MG/10 ML SYRINGE ONE (13:33)
[2017-11-19] MEDS ORDERED: MIDAZOLAM 2 MG/2 ML VIAL ONE (13:33)
[2017-11-19] MEDS ORDERED: SODIUM CHLORIDE IV ONE ×2 (13:45)
[2017-11-19] MEDS: SODIUM CHLORIDE 0.9% 1,000 ML IV SCH (13:58)
[2017-11-19] MEDS ORDERED: LIDOCAINE 1% INJ 10MG/ML (20 ML MDV) SQ ONE ×2 (14:21→14:24)
[2017-11-19] MEDS ORDERED: ACETAMINOPHEN TAB 325 MG TAB PO PRN (16:03)
[2017-11-19] MEDS ORDERED: ACETAMINOPHEN IV (For NPO) 1,000 MG/100 ML VIAL IVPB ONE (16:52)
[2017-11-19] MEDS: HYDROcodone/APAP 5-325MG 1 EACH TAB PO PRN ×2 (17:49→21:50)
[2017-11-19] MEDS ORDERED: ACETAMINOPHEN IV (For NPO) 1,000 MG in EMPTY BAG 1 BAG IVPB ONE (18:00)
--- NOTE | 2017-11-19 18:13 | PCN ---
PROCEDURE NOTE This is a 57-year-old male patient who has a history of paroxysmal atrial fibrillation, symptomatic, as well as atrial flutter, symptomatic, on flecainide, drug-refractory. He has normalization of LV function after conversion to sinus rhythm. He is brought in for an atrial flutter ablation while on flecainide 50 mg twice daily. Patient was brought to the EP lab in a fasting state. Written informed consent was obtained prior to the procedure. The right and left groins were prepped and draped as per protocol. Lidocaine 1% was used for local anesthesia. One venous sheath was placed in the right femoral vein, two venous sheaths in the left femoral vein. Via these, diagnostic and ablation mapping catheters and intracardiac echo catheter were placed. The catheters were placed in the high right atrium, His bundle area, RV coronary sinus and right atrial cavotricuspid isthmus. Intracardiac echocardiography was performed. Sinus cycle length 1183 milliseconds. HI interval 196 milliseconds. QRS 103 milliseconds. QT 508 milliseconds. AH interval 78 milliseconds. HV interval 35 milliseconds. VA Wenckebach block in the baseline state greater than 700 milliseconds. Sinus node recovery times at 600, 500 and 400 milliseconds were 1507, 1436 and 1556. Corresponding corrected sinus node recovery times were mildly prolonged. AV node Wenckebach block 310 milliseconds. Burst stimulation was performed from the coronary sinus from 400 milliseconds down to 300 milliseconds. No atrial fibrillation induced. Isuprel was started at high dose and then at 2 mcg. AV node Wenckebach block improved to 270 milliseconds. Three-dimensional mapping of the right atrial cavotricuspid isthmus was performed. The pouches were identified. Three small pouches were noted, the largest being closest to the eustachian ridge. Thick eustachian ridge was noted. RF ablation was performed with 0.7 saline infusion within the SF irrigated-tip catheter. A complete line of block was made. No anatomic gaps were left. Thereafter, pacing maneuvers proved complete bidirectional block with isthmus conduction time of greater than 190 milliseconds. Split potential was noted along the line. The patient tolerated the procedure well without any acute complications. He was extubated at the end of the procedure. was also used for improved contact during the procedure. RESULT: Diagnostic EP study revealing mildly abnormal sinus node function, mildly abnormal AV node function, and no VA conduction at baseline. Successful mapping and ablation for typical atrial flutter. Thick eustachian ridge with 3 small isthmus pouches. MMODL / IJN: [id number] /
--- NOTE | 2017-11-19 18:13 | LTR ---
To: Dr. Hayes Morrell Re: Eddy Ocampo (56) Dear Dr. Morrell, I had the pleasure seeing Mr. Eddy Ocampo in electrophysiology consultation. Mr. Ocampo has a history of atrial fibrillation and refractory atypical atrial flutter. He underwent successful ablation for atypical atrial flutter with demonstration of complete bidirectional block. We will continue all his current cardiac medications, including anticoagulation. He will follow up with you and Dr. Ortega as before. Thank you for entrusting me with the care of your patient. Warm regards. Sincerely, Peter Kwon MD MMODL / IJN: [id number] /
[2017-11-19] MEDS: traMADol 50 MG TAB PO SCH (21:05)
[2017-11-19] MEDS: METOPROLOL TARTRATE 50 MG TAB PO SCH (21:05)
[2017-11-19] MEDS: APIXABAN 5 MG TAB PO SCH (21:06)
[2017-11-19] MEDS: HYDROXYUREA 500 MG CAP PO SCH (21:51)
[2017-11-19] MEDS: FLECAINIDE 50 MG TAB PO SCH (21:51)
[2017-11-20] MEDS: LACTATED RINGERS 1,000 ML IV SCH ×2 (04:10→06:39)
[2017-11-20] MEDS: SODIUM CHLORIDE 0.9% 1,000 ML IV SCH (07:38)
[2017-11-20] MEDS: APIXABAN 5 MG TAB PO SCH (08:58)
[2017-11-20] MEDS: METOPROLOL TARTRATE 50 MG TAB PO SCH (08:58)
[2017-11-20] MEDS: FLECAINIDE 50 MG TAB PO SCH (08:58)
[2017-11-20] MEDS: HYDROXYUREA 500 MG CAP PO SCH (08:59)
[2017-11-20] MEDS ORDERED: ALLOPURINOL 100 MG TAB PO SCH (09:00)
[2017-11-20] MEDS ORDERED: FUROSEMIDE 20 MG TAB PO SCH (09:00)
[2017-11-20] MEDS ORDERED: COLCHICINE 0.6 MG EACH PO SCH (09:00)
[2017-11-20] MEDS ORDERED: LISINOPRIL 2.5 MG TAB PO SCH (09:00)
[2017-11-20] MEDS: traMADol 50 MG TAB PO SCH (09:02)
[2017-11-20 09:09] VITALS: RESP 18; TEMP 97.7
[2017-11-20 11:35] VITALS: BMI 21.2
[2017-11-20 12:27] VITALS: BP 105/62; PULSE 53
--- NOTE | 2017-11-20 12:29 | P.DS ---
Providers Attending physician: Peter Kwon [facility] Course: Patient is doing well. No pleuritic chest discomfort. He does complain of a sore throat and no fever chills or rigors no palpitations groins of healed well no pain no swelling Afebrile 97.7F pulse rate in the 50s and 60s, blood pressure 110/65 mmHg Normal heart sounds without any pericardial rub no murmurs Breath sounds are clear no rhonchi no crackles Abdomen is soft nontender No hematoma in the groins bilaterally no tenderness Impression Paroxysmal atrial fibrillation on flecainide Typical atrial flutter status post successful ablation yesterday Isthmus conduction time greater than 190 ms with bidirectional block with differential pacing Suggest Patient may be discharged home and will follow Dr. Ortega later this week. Anticoagulation with flecainide continue. No changes in medications Plan - Discharge Summary Discharge Rx Participant: Yes New Discharge Prescriptions: Continue RX: traMADol HCL [Ultram] 50 mg PO TID RX: Lisinopril [Zestril] 2.5 mg PO DAILY RX: Allopurinol [Zyloprim] 100 mg PO DAILY RX: Metoprolol Tartrate [Lopressor] 100 mg PO BID RX: Colchicine [Colcrys] 0.6 mg PO DAILY RX: Hydroxyurea [Hydrea] 500 - 1,000 mg PO DIRECTED RX: Albuterol Inhaler [Ventolin Hfa Inhaler] 1 - 2 puff INHALATION Q6HR PRN PRN Reason: Shortness Of Breath RX: Hydroxyurea [Hydrea] 500 mg PO BID RX: Furosemide [Lasix] 20 mg PO DAILY RX: Apixaban [Eliquis] 5 mg PO BID #60 tab RX: Flecainide [Tambocor] 50 mg PO Q12HR #60 tab Discharge Medication List RX: Allopurinol [Zyloprim] 100 mg PO DAILY 06/18/16 [History] RX: Lisinopril [Zestril] 2.5 mg PO DAILY 06/18/16 [History] RX: Metoprolol Tartrate [Lopressor] 100 mg PO BID 06/18/16 [History] RX: traMADol HCL [Ultram] 50 mg PO TID 06/18/16 [History] RX: Colchicine [Colcrys] 0.6 mg PO DAILY 04/26/17 [History] RX: Hydroxyurea [Hydrea] 500 - 1,000 mg PO DIRECTED 06/20/17 [History] RX: Albuterol Inhaler [Ventolin Hfa Inhaler] 1 - 2 puff INHALATION Q6HR PRN [History] RX: Furosemide [Lasix] 20 mg PO DAILY 11/09/17 [History] RX: Hydroxyurea [Hydrea] 500 mg PO BID 11/09/17 [History] RX: Apixaban [Eliquis] 5 mg PO BID #60 tab 11/14/17 [Rx] RX: Flecainide [Tambocor] 50 mg PO Q12HR #60 tab 11/14/17 [Rx] Follow up Appointment(s)/Referral(s): Anoop Ortega MD [STAFF PHYSICIAN] - 1 Week Patient Instructions/Handouts: Cardiac Ablation (DC) Activity/Diet/Wound Care/Special Instructions: Post EP study - Ablation instructions 1. Keep access sites dry for 2 days. 2. No heavy lifting or straining for 2 days. 3. Avoid bending the hips repeatedly for 2 days. 4. You may go up and down stairs slowly Call if the following is noted 1. Bleeding, increasing swelling or pain at the access sites. 2. Increasing chest discomfort, especially upon taking a deep breath. 3. Increasing shortness of breath, at rest or with exertion. 4. Undue cough / phlegm 5. Difficulty or pain while swallowing. 6. Pain or change in color in the extremities. 7. Fever, chills, rigors. 8. Increasing headache or neurologic symptoms. 9. Dizziness, fainting, palpitations Follow-up with Dr. Hensley in 1-2 weeks Discharge Disposition: HOME SELF-CARE
== END 2017-11-20 16:06 | disposition home or self-care (01) ==
LOC: CATHEP 12:20 → 6SEL 15:57 → CATHEP 11-20 16:06
PROVIDERS: ATTEND Internal Medicine Clinical Cardiac Electrophysiology
DX: I48.3 Typical atrial flutter (principal); I25.5 Ischemic cardiomyopathy; I48.0 Paroxysmal atrial fibrillation; E78.5 Hyperlipidemia, unspecified; I10 Essential (primary) hypertension; Z82.49 Family history of ischemic heart disease and other diseases of the circulatory system; R55 Syncope and collapse; Z79.01 Long term (current) use of anticoagulants; Z79.899 Other long term (current) drug therapy
CPT/HCPCS: 93623; 93662; 93613; 93653; C1894; C1769 ×2; C1730; C1759; C1893; C1732; S0176 ×2; J2001; J0131

== ENCOUNTER 2018-05-08 04:56 | Emergency (ER) | payer BC, OTHER ==
[2018-05-08] MEDS ORDERED: IPRATROPIUM-ALBUTEROL 3 ML NEB INHALATION STA (05:16)
--- NOTE | 2018-05-08 05:36 | ED ---
SOB HPI - General Chief Complaint: Shortness of Breath Stated Complaint: CHF issue Time Seen by Provider: 05/08/18 05:15 Source: patient Mode of arrival: ambulatory Limitations: no limitations - History of Present Illness Initial Comments: Eddy is a 58-year-old male with a history of A. fib as well as congestive heart failure who presents the ED today for evaluation of shortness of breath. Patient reports that last week his and granddaughter both had influenza. Patient states that he had his influenza vaccine but starting on or Sunday of last week he did start to feel some nasal congestion and generalized malaise. Patient denies any fevers or body aches. He reports that throughout the weekend he has had progressively worsening shortness of breath and feels as though he is now having trouble breathing. Patient reports tonight he was up all night because he is experiencing shortness of breath that worsens when he lays flat. Patient denies any chest pain or palpitations. He reports this is similar to previous CHF exacerbations any's concern that he has fluid build up in his lungs. 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 He is uncertain what his ejection fraction is. - Related Data Home Medications Medication Instructions Recorded Confirmed Allopurinol [Zyloprim] 100 mg PO DAILY 06/18/16 05/08/18 Lisinopril [Zestril] 2.5 mg PO DAILY 06/18/16 05/08/18 Metoprolol Tartrate [Lopressor] 100 mg PO BID 06/18/16 05/08/18 Colchicine [Colcrys] 0.6 mg PO DAILY 04/26/17 05/08/18 Hydroxyurea [Hydrea] 500 mg PO BID 11/09/17 05/08/18 Furosemide [Lasix] 20 mg PO DAILY 05/08/18 05/08/18 Previous Rx's Medication Instructions Recorded Apixaban [Eliquis] 5 mg PO BID #60 tab 11/14/17 Flecainide [Tambocor] 50 mg PO Q12HR #60 tab 11/14/17 Allergies Allergy/AdvReac Type Severity Reaction Status Date / Time No Known Allergies Allergy Verified 05/08/18 06:57 Review of Systems ROS Statement: Those systems with pertinent positive or pertinent negative responses have been documented in the HPI. ROS Other: All systems not noted in ROS Statement are negative. 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 Past Anesthesia/Blood Transfusion Reactions: No Reported Reaction Past Psychological History: No Psychological Hx Reported Smoking Status: Never smoker Past Alcohol Use History: Daily Past Drug Use History: None Reported - Past Family History Mother Family Medical History: Cancer Additional Family Medical History / Comment(s): BREAST/BONE CANCER. Father Family Medical History: Coronary Artery Disease (CAD), CVA/TIA Additional Family Medical History / Comment(s): Father had CABG and a CVA post op that took his life. Brother(s) Family Medical History: No Reported History Daughter(s) Family Medical History: No Reported History General Exam - General Exam Comments Initial Comments: Physical Exam GENERAL: Patient is well-developed and well-nourished. Patient is nontoxic and well- hydrated and is in no distress. HENT: Normocephalic, Atraumatic. EYES: PERRL, EOMI PULMONARY: Just did lung sounds at bilateral bases, wheezing greater on the right than the left CARDIOVASCULAR: There is a regular rate and rhythm without any murmurs gallops or rubs. ABDOMEN: Soft and nontender with normal bowel sounds. SKIN: Skin is clear with no lesions or rashes and otherwise unremarkable. : Deferred NEUROLOGIC: Patient is alert and oriented x3. Moving all extremities spontaneously MUSCULOSKELETAL: Normal extremities with adequate strength and full range of motion. No lower extremity swelling or edema. No calf tenderness. PSYCHIATRIC: Normal psychiatric evaluation. Limitations: no limitations Limitations: no limitations Course Vital Signs 05/08/18 05/08/18 05/08/18 05:02 05:59 06:06 Temperature 98.5 F Pulse Rate 80 75 71 Respiratory 18 19 Rate Blood Pressure 113/70 O2 Sat by Pulse 96 Oximetry 05/08/18 07:10 Temperature 98.6 F Pulse Rate 76 Respiratory 19 Rate Blood Pressure 127/73 O2 Sat by Pulse 98 Oximetry Medical Decision Making - Medical Decision Making Patient was seen and evaluated history was obtained from the patient and review of medical record Due to patient's history of CHF and presentation with concern for CHF exacerbation EKG was obtained and signed EKG is nonischemic Workup for congestive heart failure as well as influenza was initiated Due to patient's wheezing and DuoNeb was ordered Labs resulted with positive influenza CBC was consistent with the patient's baseline and history of bone marrow cancer CMP with no significant abnormalities Results were discussed with the patient, given the patient's medical history at this time I did offer him observation versus discharge home. Considering that he is been symptomatic for a number of days I do not feel he would benefit from Tamiflu. Patient's comfortable with the plan for discharge home with continued supportive care. All questions pertaining care were answered return parameters were discussed patient was discharged home in stable condition - Lab Data Result diagrams: 05/08/18 05:33 05/08/18 05:33 Lab Results 05/08/18 05/08/18 05/08/18 Range/Units 05:33 05:33 05:33 WBC 8.2 (3.8-10.6) k/uL RBC 3.28 L (4.30-5.90) m/uL Hgb 13.3 (13.0-17.5) gm/dL Hct 39.4 (39.0-53.0) % MCV 120.1 H (80.0-100.0) fL MCH 40.7 H (25.0-35.0) pg MCHC 33.9 (31.0-37.0) g/dL RDW 19.5 H (11.5-15.5) % Plt Count 319 (150-450) k/uL Neutrophils % 86 % Lymphocytes % 7 % Monocytes % 5 % Eosinophils % 1 % Basophils % 0 % Neutrophils # 7.0 (1.3-7.7) k/uL Lymphocytes # 0.6 L (1.0-4.8) k/uL Monocytes # 0.4 (0-1.0) k/uL Eosinophils # 0.1 (0-0.7) k/uL Basophils # 0.0 (0-0.2) k/uL Manual Slide Review Performed Hypersegmented Neuts Present Large Platelets Present Anisocytosis Slight Macrocytosis Marked PT (9.0-12.0) sec INR (<1.2) APTT (22.0-30.0) sec Sodium 134 L (137-145) mmol/L Potassium 4.7 (3.5-5.1) mmol/L Chloride 99 (98-107) mmol/L Carbon Dioxide 26 (22-30) mmol/L Anion Gap 9 mmol/L BUN 20 (9-20) mg/dL Creatinine 1.10 (0.66-1.25) mg/dL Est GFR (CKD-EPI)AfAm 84 (>60 ml/min/1.73 sqM) Est GFR (CKD-EPI)NonAf 73 (>60 ml/min/1.73 sqM) Glucose 110 H (74-99) mg/dL Calcium 9.2 (8.4-10.2) mg/dL Magnesium 1.8 (1.6-2.3) mg/dL Total Bilirubin 2.6 H (0.2-1.3) mg/dL AST 25 (17-59) U/L ALT 35 (21-72) U/L Alkaline Phosphatase 101 (38-126) U/L Troponin I (0.000-0.034) ng/mL NT-Pro-B Natriuret Pep pg/mL Total Protein 7.4 (6.3-8.2) g/dL Albumin 4.4 (3.5-5.0) g/dL Influenza Type A RNA Detected H (Not Detectd) Influenza Type B (PCR) Not Detected (Not Detectd) 05/08/18 05/08/18 05/08/18 Range/Units 05:33 05:33 05:33 WBC (3.8-10.6) k/uL RBC (4.30-5.90) m/uL Hgb (13.0-17.5) gm/dL Hct (39.0-53.0) % MCV (80.0-100.0) fL MCH (25.0-35.0) pg MCHC (31.0-37.0) g/dL RDW (11.5-15.5) % Plt Count (150-450) k/uL Neutrophils % % Lymphocytes % % Monocytes % % Eosinophils % % Basophils % % Neutrophils # (1.3-7.7) k/uL Lymphocytes # (1.0-4.8) k/uL Monocytes # (0-1.0) k/uL Eosinophils # (0-0.7) k/uL Basophils # (0-0.2) k/uL Manual Slide Review Hypersegmented Neuts Large Platelets Anisocytosis Macrocytosis PT 10.3 (9.0-12.0) sec INR 1.0 (<1.2) APTT 27.3 (22.0-30.0) sec Sodium (137-145) mmol/L Potassium (3.5-5.1) mmol/L Chloride (98-107) mmol/L Carbon Dioxide (22-30) mmol/L Anion Gap mmol/L BUN (9-20) mg/dL Creatinine (0.66-1.25) mg/dL Est GFR (CKD-EPI)AfAm (>60 ml/min/1.73 sqM) Est GFR (CKD-EPI)NonAf (>60 ml/min/1.73 sqM) Glucose (74-99) mg/dL Calcium (8.4-10.2) mg/dL Magnesium (1.6-2.3) mg/dL Total Bilirubin (0.2-1.3) mg/dL AST (17-59) U/L ALT (21-72) U/L Alkaline Phosphatase (38-126) U/L Troponin I <0.012 (0.000-0.034) ng/mL NT-Pro-B Natriuret Pep 165 pg/mL Total Protein (6.3-8.2) g/dL Albumin (3.5-5.0) g/dL Influenza Type A RNA (Not Detectd) Influenza Type B (PCR) (Not Detectd) - EKG Data -: EKG Interpreted by Me EKG shows normal: sinus rhythm EKG Comments: EKG obtained at 5:12 AM, rate is 74 there is a P-wave before each QRS rhythm is sinus, normal axis, MN is 178, QRS 86, QTC 419. There are no acute ST elevations or depressions there is no evidence of acute ischemia or infarction Disposition Clinical Impression: Influenza Disposition: HOME SELF-CARE Condition: Stable Instructions (If sedation given, give patient instructions): Influenza (DC) Is patient prescribed a controlled substance at d/c from ED?: No Referrals: Adolfo Morrell MD [Primary Care Provider] - 1-2 days
--- NOTE | 2018-05-08 05:52 | XR ---
EXAM: XR Chest, 2 Views CLINICAL HISTORY: ITS.REASON XR Reason: Chest Pain TECHNIQUE: Frontal and lateral views of the chest. COMPARISON: 11/09/17. FINDINGS: Lungs: Mild basilar opacities, possible atelectasis. No consolidation. Pleural space: No significant pleural effusion or pneumothorax. Heart: Stable cardiomediastinal silhouette. Mediastinum: See above. Bones/joints: No acute fracture. IMPRESSION: Mild basilar opacities, possible atelectasis. No consolidation.
[2018-05-08 06:02] VITALS: RESP 19
[2018-05-08 06:09] LABS: Anisocytosis Slight; Basophils % (A) 0 %; Eosinophils # (A) 0.1 k/uL (0-0.7); Eosinophils % (A) 1 %; HCT 39.4 % (39.0-53.0); HGB 13.3 gm/dL (13.0-17.5); Lymphocytes # (A) 0.6 k/uL (1.0-4.8); Lymphocytes % (A) 7 %; MCH 40.7 pg (25.0-35.0); MCHC 33.9 g/dL (31.0-37.0); MCV 120.1 fL (80.0-100.0); Macrocytosis Marked; Mean Platelet Volume 7.4; Monocytes # (A) 0.4 k/uL (0-1.0); Monocytes % (A) 5 %; Neutrophils % (A) 86 %; Platelet Count 319 k/uL (150-450); RBC 3.28 m/uL (4.30-5.90); RDW 19.5 % (11.5-15.5); WBC 8.2 k/uL (3.8-10.6)
[2018-05-08 06:14] LABS: Albumin 4.4 g/dL (3.5-5.0); Calcium 9.2 mg/dL (8.4-10.2); Magnesium 1.8 mg/dL (1.6-2.3); Potassium 4.7 mmol/L (3.5-5.1); Total Bilirubin 2.6 mg/dL (0.2-1.3); Total Protein 7.4 g/dL (6.3-8.2)
[2018-05-08 06:30] LABS: Partial Thromboplastin Time 27.3 sec (22.0-30.0); Prothrombin Time 10.3 sec (9.0-12.0)
[2018-05-08 07:16] VITALS: BP 127/73; PULSE 76; TEMP 98.6
[2018-05-08 07:29] LABS: Hypersegmented Neutrophils Present; Large Platelets Present
== END 2018-05-08 07:11 | disposition home or self-care (01) ==
LOC: EC 04:56
DX: J10.1 Influenza due to other identified influenza virus with other respiratory manifestations (principal); I11.0 Hypertensive heart disease with heart failure; I50.9 Heart failure, unspecified; Z79.899 Other long term (current) drug therapy; Z95.5 Presence of coronary angioplasty implant and graft; Z85.830 Personal history of malignant neoplasm of bone; Z86.79 Personal history of other diseases of the circulatory system
CPT/HCPCS: 36415; 71046; 80053; 83735; 83880; 84484; 85025; 85610; 85730; 87502; 93005; 94640; 99285

== ENCOUNTER 2022-01-17 08:47 | Inpatient (IN) | payer BC ==
[2022-01-17] MEDS ORDERED: NITROGLYCERIN SL TABS 0.4 MG TAB SUBLINGUAL STA (09:00)
--- NOTE | 2022-01-17 09:07 | ED ---
General Adult HPI - General Chief complaint: Shortness of Breath Stated complaint: Heart Failure Time Seen by Provider: 01/17/22 08:55 Source: patient, RN notes reviewed Mode of arrival: ambulatory Limitations: no limitations - History of Present Illness Initial comments: 61-year-old male presents emergency Department chief complaint of chest pressure, shortness of breath. Patient states he woke up the symptoms today. 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 Ortega which is scheduled close follow-up because of some arrhythmia and concern for CHF. Patient does have a history of A. fib on eliquis, has had 2 prior cardiac ablations. Patient denies any leg swelling usual. Patient states he feels some sinus chest pressure, states he feels crackly has lungs. Patient does have some orthopnea. Patient denies fever states he's had some chills. - Related Data Home Medications Medication Instructions Recorded Confirmed allopurinoL [Zyloprim] 100 mg PO DAILY 06/18/16 04/17/21 lisinopriL [Zestril] 5 mg PO DAILY 06/18/16 04/17/21 Hydroxyurea [Hydrea] 500 mg PO TUTHSA 11/09/17 04/17/21 Atorvastatin [Lipitor] 20 mg PO DAILY 04/17/21 04/17/21 Flecainide Acetate 50 mg PO BID 04/17/21 04/17/21 Hydroxyurea [Hydrea] 1,000 mg PO SUMOWEFR 04/17/21 04/17/21 Metoprolol Succinate (ER) [Toprol 50 mg PO HS 04/17/21 04/17/21 Xl] Metoprolol Succinate (ER) [Toprol 100 mg PO DAILY 04/17/21 04/17/21 Xl] Allergies Allergy/AdvReac Type Severity Reaction Status Date / Time No Known Allergies Allergy Verified 01/17/22 08:52 Review of Systems ROS Statement: Those systems with pertinent positive or pertinent negative responses have been documented in the HPI. ROS Other: All systems not noted in ROS Statement are negative. 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 Past Anesthesia/Blood Transfusion Reactions: No Reported Reaction Additional Past Anesthesia/Blood Transfusion Reaction / Comment(s): vertigo, Past Psychological History: No Psychological Hx Reported Smoking Status: Never smoker Past Alcohol Use History: Daily Past Drug Use History: None Reported - Past Family History Mother Family Medical History: Cancer Additional Family Medical History / Comment(s): BREAST/BONE CANCER. Father Family Medical History: Coronary Artery Disease (CAD), CVA/TIA Additional Family Medical History / Comment(s): Father had CABG and a CVA post op that took his life. Brother(s) Family Medical History: No Reported History Daughter(s) Family Medical History: No Reported History General Exam Limitations: no limitations General appearance: alert, in no apparent distress Head exam: Present: atraumatic, normocephalic, normal inspection Eye exam: Present: normal appearance, PERRL, EOMI. Absent: scleral icterus, conjunctival injection, periorbital swelling ENT exam: Present: normal exam, normal oropharynx, mucous membranes moist Neck exam: Present: normal inspection, full ROM. Absent: tenderness, meningis mus, lymphadenopathy Respiratory exam: Present: rales. Absent: normal lung sounds bilaterally, respiratory distress, wheezes, rhonchi, stridor Cardiovascular Exam: Present: regular rate, normal rhythm, normal heart sounds. Absent: systolic murmur, diastolic murmur, rubs, gallop, clicks Neurological exam: Present: alert, oriented X3, CN II-XII intact, reflexes normal. Absent: motor sensory deficit Skin exam: Present: warm, dry, intact, normal color. Absent: rash Course Vital Signs 01/17/22 01/17/22 01/17/22 08:48 09:00 09:23 Temperature 97.8 F Pulse Rate 90 89 80 Respiratory 20 20 18 Rate Blood Pressure 159/92 158/99 148/93 O2 Sat by Pulse 94 L 95 92 L Oximetry 01/17/22 10:00 Temperature Pulse Rate 77 Respiratory 18 Rate Blood Pressure 146/90 O2 Sat by Pulse 98 Oximetry EKG Findings - EKG Comments: EKG Findings:: KG performed at 8:55 sinus rhythm with first-degree AV block, rate of 90. 210 QRS 104 QT/QTC 359/406 - EKG Results: EKG: interpreted by CORAL Medical Decision Making - Lab Data Result diagrams: 01/17/22 09:05 01/17/22 09:05 Lab Results 01/17/22 01/17/22 01/17/22 Range/Units 09:05 09:05 09:05 WBC 24.3 H (3.8-10.6) k/uL RBC 3.15 L (4.30-5.90) m/uL Hgb 12.1 L (13.0-17.5) gm/dL Hct 35.9 L (39.0-53.0) % MCV 114.0 H (80.0-100.0) fL MCH 38.5 H (25.0-35.0) pg MCHC 33.8 (31.0-37.0) g/dL RDW 18.0 H (11.5-15.5) % Plt Count 565 H (150-450) k/uL MPV 8.7 Neutrophils % 94 % Lymphocytes % 3 % Monocytes % 2 % Eosinophils % 0 % Basophils % 1 % Neutrophils # 23.0 H (1.3-7.7) k/uL Lymphocytes # 0.6 L (1.0-4.8) k/uL Monocytes # 0.4 (0-1.0) k/uL Eosinophils # 0.1 (0-0.7) k/uL Basophils # 0.1 (0-0.2) k/uL Hypochromasia Slight Anisocytosis Slight Macrocytosis Marked A PT 11.3 (9.0-12.0) sec INR 1.0 (<1.2) APTT 24.7 (22.0-30.0) sec Sodium 141 (137-145) mmol/L Potassium 4.4 (3.5-5.1) mmol/L Chloride 103 (98-107) mmol/L Carbon Dioxide 28 (22-30) mmol/L Anion Gap 10 mmol/L BUN 14 (9-20) mg/dL Creatinine 1.07 (0.66-1.25) mg/dL Est GFR (CKD-EPI)AfAm 86 (>60 ml/min/1.73 sqM) Est GFR (CKD-EPI)NonAf 74 (>60 ml/min/1.73 sqM) Glucose 105 H (74-99) mg/dL Calcium 8.8 (8.4-10.2) mg/dL Magnesium 1.4 L (1.6-2.3) mg/dL Total Bilirubin 1.4 H (0.2-1.3) mg/dL AST 30 (17-59) U/L ALT 18 (4-49) U/L Alkaline Phosphatase 141 H (38-126) U/L Troponin I (0.000-0.034) ng/mL NT-Pro-B Natriuret Pep pg/mL Total Protein 6.8 (6.3-8.2) g/dL Albumin 4.3 (3.5-5.0) g/dL 01/17/22 01/17/22 Range/Units 09:05 09:05 WBC (3.8-10.6) k/uL RBC (4.30-5.90) m/uL Hgb (13.0-17.5) gm/dL Hct (39.0-53.0) % MCV (80.0-100.0) fL MCH (25.0-35.0) pg MCHC (31.0-37.0) g/dL RDW (11.5-15.5) % Plt Count (150-450) k/uL MPV Neutrophils % % Lymphocytes % % Monocytes % % Eosinophils % % Basophils % % Neutrophils # (1.3-7.7) k/uL Lymphocytes # (1.0-4.8) k/uL Monocytes # (0-1.0) k/uL Eosinophils # (0-0.7) k/uL Basophils # (0-0.2) k/uL Hypochromasia Anisocytosis Macrocytosis PT (9.0-12.0) sec INR (<1.2) APTT (22.0-30.0) sec Sodium (137-145) mmol/L Potassium (3.5-5.1) mmol/L Chloride (98-107) mmol/L Carbon Dioxide (22-30) mmol/L Anion Gap mmol/L BUN (9-20) mg/dL Creatinine (0.66-1.25) mg/dL Est GFR (CKD-EPI)AfAm (>60 ml/min/1.73 sqM) Est GFR (CKD-EPI)NonAf (>60 ml/min/1.73 sqM) Glucose (74-99) mg/dL Calcium (8.4-10.2) mg/dL Magnesium (1.6-2.3) mg/dL Total Bilirubin (0.2-1.3) mg/dL AST (17-59) U/L ALT (4-49) U/L Alkaline Phosphatase (38-126) U/L Troponin I 0.016 (0.000-0.034) ng/mL NT-Pro-B Natriuret Pep 2750 pg/mL Total Protein (6.3-8.2) g/dL Albumin (3.5-5.0) g/dL Disposition Clinical Impression: Chest pain, Congestive heart failure, Pleural effusion Disposition: ADMITTED IP TO THIS HOSP Condition: Fair Referrals: None,Stated [Primary Care Provider] - 1-2 days Time of Disposition: 10:49
[2022-01-17 09:43] LABS: Anisocytosis Slight; Basophils # (A) 0.1 k/uL (0-0.2); Basophils % (A) 1 %; Eosinophils # (A) 0.1 k/uL (0-0.7); Eosinophils % (A) 0 %; HCT 35.9 % (39.0-53.0); HGB 12.1 gm/dL (13.0-17.5); Hypochromasia Slight; Lymphocytes # (A) 0.6 k/uL (1.0-4.8); Lymphocytes % (A) 3 %; MCH 38.5 pg (25.0-35.0); MCHC 33.8 g/dL (31.0-37.0); Macrocytosis Marked; Mean Platelet Volume 8.7; Monocytes # (A) 0.4 k/uL (0-1.0); Monocytes % (A) 2 %; Neutrophils % (A) 94 %; Platelet Count 565 k/uL (150-450); RBC 3.15 m/uL (4.30-5.90); WBC 24.3 k/uL (3.8-10.6)
--- NOTE | 2022-01-17 09:43 | XR ---
EXAMINATION TYPE: XR chest 2V DATE OF EXAM: 01/17/2022 COMPARISON: 04/17/2021 TECHNIQUE: PA and lateral views submitted. HISTORY: Shortness of breath FINDINGS: Diffuse interstitial pattern with small bilateral pleural effusion. Hyperinflation suggests COPD. Hyp ertrophic and degenerative changes in spine. No pneumothorax. IMPRESSION: 1. COPD with small bilateral pleural
[2022-01-17] MEDS ORDERED: FUROSEMIDE 10 MG/ML 4 ML VIAL IV STA (09:54)
[2022-01-17 09:58] LABS: Partial Thromboplastin Time 24.7 sec (22.0-30.0); Prothrombin Time 11.3 sec (9.0-12.0)
[2022-01-17 09:59] LABS: Albumin 4.3 g/dL (3.5-5.0); Calcium 8.8 mg/dL (8.4-10.2); Magnesium 1.4 mg/dL (1.6-2.3); Potassium 4.4 mmol/L (3.5-5.1); Total Bilirubin 1.4 mg/dL (0.2-1.3); Total Protein 6.8 g/dL (6.3-8.2)
[2022-01-17] MEDS ORDERED: MAGNESIUM SULFATE-D5W PMX 1 GM in DEXTROSE/WATER 1 100ML.BAG IVPB ONE (10:49)
[2022-01-17] MEDS ORDERED: NITROGLYCERIN SL TABS 0.4 MG TAB SUBLINGUAL PRN (11:06)
[2022-01-17] MEDS: FLECAINIDE 50 MG TAB PO SCH ×2 (11:52→19:35)
[2022-01-17] MEDS: RIVAROXABAN 15 MG TAB PO SCH (11:52)
[2022-01-17] MEDS: METOPROLOL SUCCINATE (ER) 100 MG TAB.ER.24H PO SCH ×2 (11:53→19:35)
[2022-01-17] MEDS: ATORVASTATIN 20 MG TAB PO SCH (11:53)
[2022-01-17] MEDS: lisinopriL 5 MG TAB PO SCH (11:53)
[2022-01-17] MEDS: allopurinoL 100 MG TAB PO SCH (11:53)
[2022-01-17] MEDS ORDERED: HYDROXYUREA 500 MG CAP PO SCH (12:00)
--- NOTE | 2022-01-17 14:24 | P.HPIM ---
History of Present Illness H&P Date: 01/17/22 History of Presenting Illness: Patient is a very pleasant 61-year-old male with a past medical history of bone marrow cancer currently on hydroxyurea treatment under Dr. Byrne, persistent atrial fibrillation status post 2 cardioversions and 1 cardiac ablation on anticoagulation with Xarelto, nonischemic cardiomyopathy, hypertension, hyperlipidemia, bilateral severe nystigmatism, legally blind in left eye and decreased vision and right eye. He presented to the emergency department with a chief complaint of chest pain/pressure. Patient states that on Sunday he experienced a severe episode of atrial fibrillation with RVR and took an extra dose of flecainide for treatment which finally controlled rate by Sunday. Patient reports on Sunday and Sunday he felt fine but this morning he awoke with significant pressure to midsternal chest accompanied by shortness of breath and feeling/hearing crackly sounds with breathing. Patient denies having any fevers, headache, lightheadedness, diaphoresis, palpitations, nausea, vomiting, or experiencing any numbness/tingling/weakness/swelling in his extremities. Patient reports this pressure and shortness of breath does not feel anything like atrial fibrillation stating he feels as if he is in heart failure. Patient underwent full evaluation in the emergency department. EKG was completed revealing normal sinus rhythm at 90 bpm with a first-degree AV block with NV interval of 210 ms. Chest x-ray revealing COPD with small bilateral pleural effusions. CBC revealing significant leukocytosis with WBC count of 24.3, microcytic microchromic anemia with hemoglobin of 12.1, and thrombocytosis with platelet count of 565. CMP revealing hypomagnesemia with magnesium of 1.4. Troponin 0.016 and pro-BNP 2750. Patient being admitted under our services with consultation to cardiology. Review of systems: Pertinent positives and negatives as discussed in HPI, a complete review of systems was performed and all other systems are negative. Physical exam: Vital signs reviewed and stable. General: Nontoxic, no distress and appears stated age. Derm: Skin warm and dry, normal coloration for ethnicity. Head: Atraumatic, normocephalic and symmetric. Eyes: Positive nystagmus bilaterally, left eye lid drooping ptosis with left eye stabismus. Mouth: no lip lesions, mucus membranes moist Cardiovascular: regular rate and rhythm with normal S1S2, no murmur, positive posterior tibial pulses bilaterally, and cap refill < 2 seconds. Lungs: Respirations even, regular, and unlabored on room air. Lungs CTA bilaterally, no rhonchi, no rales, no wheezing, and no accessory muscle usage. Abdominal: soft, nontender to palpation, no guarding, no appreciable organomegaly Ext: ROM intact. No gross muscle atrophy, no edema, no contractures Neuro: Speech clear, face symmetrical and CN II-XII grossly intact with no noted focal neuro deficits Psych: Alert and oriented to person, place, time, and situation. Appropriate and pleasant affect. Assessment and Plan of Care: Acute on chronic heart failure, unclear type pending echocardiogram Chest pain and shortness of breath, rule out acute coronary event History of nonischemic cardiomyopathy History of persistent atrial fibrillation Hypertension Hyperlipidemia -Cardiology consult, appreciate further recommendations -Telemetry monitoring -Trend troponins -Cardiac diet, NPO at midnight -Continue cardiac medication regimen with Xarelto, Aspirin, atorvastatin, lisinopril, flecainide and metoprolol -Lipid profile with a.m. labs. -Echocardiogram -BNP 2750 -Lasix 40 mg IVP twice daily -Close monitoring of I's and O's -Daily weights Leukocytosis with WBC count of 24.3 -Unclear etiology, likely reactive as patient reports having 2 days of uncontrolled RVR and showing no signs of acute infection at this time but has been taking hydroxyurea for treatment of bone marrow cancer. -Patient being started on Rocephin and azithromycin for treatment of community- acquired pneumonia until infectious source can be ruled out at this time. -Stat pro-calcitonin, blood cultures, and urinalysis to be obtained. Hypomagnesemia -Replaced, continue to monitor with repeat a.m. labs and replace abnormal electrolyte values as needed. Bone marrow cancer -Continue hydroxyurea The patient is admitted with an anticipated greater than 2 midnight stay for evaluation of heart failure CODE STATUS: Full code DVT prophylaxis: Xarelto Discussed with: Pt and RN Anticipated discharge date: clinical course to determine Anticipated discharge place: home A total of 48 minutes was spent on the care of this complex patient more than 50% of the time was spent in counseling and care coordination. 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 Past Anesthesia/Blood Transfusion Reactions: No Reported Reaction Additional Past Anesthesia/Blood Transfusion Reaction / Comment(s): vertigo, Past Psychological History: No Psychological Hx Reported Smoking Status: Never smoker Past Alcohol Use History: Daily Past Drug Use History: None Reported - Past Family History Mother Family Medical History: Cancer Additional Family Medical History / Comment(s): BREAST/BONE CANCER. Father Family Medical History: Coronary Artery Disease (CAD), CVA/TIA Additional Family Medical History / Comment(s): Father had CABG and a CVA post op that took his life. Brother(s) Family Medical History: No Reported History Daughter(s) Family Medical History: No Reported History Medications and Allergies Home Medications Medication Instructions Recorded Confirmed Type allopurinoL [Zyloprim] 100 mg PO DAILY@1200 06/18/16 01/17/22 History Hydroxyurea [Hydrea] 500 mg PO DAILY@1200 11/09/17 01/17/22 History Atorvastatin [Lipitor] 20 mg PO DAILY@1200 04/17/21 01/17/22 History Flecainide Acetate 50 mg PO BID@1200,212904/17/21 01/17/22 History Metoprolol Succinate (ER) [Toprol 100 mg PO BID@1200,212904/17/21 01/17/22 History Xl] Rivaroxaban [Xarelto] 15 mg PO DAILY@1200 01/17/22 01/17/22 History lisinopriL [Zestril] 5 mg PO DAILY@1200 01/17/22 01/17/22 History Allergies Allergy/AdvReac Type Severity Reaction Status Date / Time No Known Allergies Allergy Verified 01/17/22 08:52 Physical Exam Vitals: Vital Signs Temp Pulse Resp BP Pulse Ox 01/17/22 11:00 79 16 157/91 95 01/17/22 10:00 77 18 146/90 98 01/17/22 09:23 80 18 148/93 92 L 01/17/22 09:00 89 20 158/99 95 01/17/22 08:48 97.8 F 90 20 159/92 94 L Intake and Output 01/16/22 01/17/22 01/17/22 22:59 06:59 14:59 Other: Weight 74.843 kg Results CBC & Chem 7: 01/17/22 09:05 01/17/22 09:05 Labs: Abnormal Lab Results - Last 24 Hours (Table) 01/17/22 01/17/22 Range/Units 09:05 09:05 WBC 24.3 H (3.8-10.6) k/uL RBC 3.15 L (4.30-5.90) m/uL Hgb 12.1 L (13.0-17.5) gm/dL Hct 35.9 L (39.0-53.0) % MCV 114.0 H (80.0-100.0) fL MCH 38.5 H (25.0-35.0) pg RDW 18.0 H (11.5-15.5) % Plt Count 565 H (150-450) k/uL Neutrophils # 23.0 H (1.3-7.7) k/uL Lymphocytes # 0.6 L (1.0-4.8) k/uL Macrocytosis Marked A Glucose 105 H (74-99) mg/dL Magnesium 1.4 L (1.6-2.3) mg/dL Total Bilirubin 1.4 H (0.2-1.3) mg/dL Alkaline Phosphatase 141 H (38-126) U/L
[2022-01-17] MEDS: AZITHROMYCIN 500 MG TAB PO SCH (15:18)
[2022-01-17] MEDS: FUROSEMIDE 10 MG/ML 4 ML VIAL IV SCH (19:35)
[2022-01-17 21:12] LABS: Appearance,Urine Clear (Clear); Bilirubin,Urine Negative (Negative); Blood,Urine Negative (Negative); Color,Urine Colorless; Glucose,Urine (UA) Negative (Negative); Ketones,Urine Negative (Negative); Leukocyte Esterase,Urine Negative (Negative); Nitrite,Urine Negative (Negative); Protein,Urine Negative (Negative); Specific Gravity,Urine 1.005 (1.001-1.035); Urobilinogen,Urine <2.0 mg/dL (<2.0)
[2022-01-18] MEDS: AZITHROMYCIN 500 MG TAB PO SCH (08:43)
[2022-01-18] MEDS: FUROSEMIDE 10 MG/ML 4 ML VIAL IV SCH ×2 (08:44→20:18)
[2022-01-18] MEDS: ASPIRIN 81 MG PO SCH (08:44)
[2022-01-18] MEDS: HYDROXYUREA 500 MG CAP PO SCH (08:45)
[2022-01-18 09:03] LABS: Anisocytosis Slight; HGB 12.2 gm/dL (13.0-17.5); Hypochromasia Slight; MCH 38.9 pg (25.0-35.0); MCHC 33.8 g/dL (31.0-37.0); MCV 115.2 fL (80.0-100.0); Macrocytosis Marked; Mean Platelet Volume 8.9; Platelet Count 472 k/uL (150-450); RBC 3.12 m/uL (4.30-5.90); RDW 17.9 % (11.5-15.5); WBC 18.6 k/uL (3.8-10.6)
[2022-01-18 09:20] LABS: ALT 16 U/L (4-49); AST 25 U/L (17-59); African American GFR (CKD) 76 (>60 ml/min/1.73 sqM); Albumin 3.6 g/dL (3.5-5.0); Alkaline Phosphatase 135 U/L (38-126); Anion Gap 6 mmol/L; Blood Urea Nitrogen 17 mg/dL (9-20); Calcium 8.3 mg/dL (8.4-10.2); Carbon Dioxide 34 mmol/L (22-30); Chloride 97 mmol/L (98-107); Glucose 96 mg/dL (74-99); Magnesium 1.7 mg/dL (1.6-2.3); Non-African American GFR(CKD) 66 (>60 ml/min/1.73 sqM); Potassium 3.8 mmol/L (3.5-5.1); Sodium 137 mmol/L (137-145); Total Bilirubin 1.7 mg/dL (0.2-1.3); Total Protein 6.1 g/dL (6.3-8.2)
--- NOTE | 2022-01-18 10:13 | CA ---
Transthoracic Echo Report Name: Eddy Ocampo Age: 61 Gender: M : 1960 Exam Date: 01/18/2022 08:04 Exam Location: [facility] Ht (in): 72 Wt (lb): 160 Ordering Physician: Sean Nguyen Attending/Referring Phys: Prenatal Nurse Theresa Horton RDCS Procedure CPT: Indications: Evaluate structure and function, suspect CHF Cardiac Hx: Technical Quality: Contrast 1: Total Dose (mL): Contrast 2: Total Dose (mL): MEASUREMENTS (Male / Female) Normal Values 2D ECHO LV Diastolic Diameter PLAX 4.8 cm 4.2 - 5.9 / 3.9 - 5.3 cm LV Systolic Diameter PLAX 3.7 cm IVS Diastolic Thickness 2.0 cm 0.6 - 1.0 / 0.6 - 0.9 cm LVPW Diastolic Thickness 1.3 cm 0.6 - 1.0 / 0.6 - 0.9 cm LV Relative Wall Thickness 0.7 RV Internal Dim ED PLAX 3.4 cm LA Volume 78.3 cm??? 18 - 58 / 22 - 52 cm??? M-MODE Aortic Root Diameter MM 3.4 cm LA Systolic Diameter MM 5.1 cm LA Ao Ratio MM 1.5 AV Cusp Separation MM 2.5 cm DOPPLER AV Peak Velocity 101.7 cm/s AV Peak Gradient 4.1 mmHg AV Mean Velocity 77.5 cm/s AV Mean Gradient 2.5 mmHg AV Velocity Time Integral 23.0 cm AI Peak Velocity 379.2 cm/s AI Peak Gradient 57.5 mmHg AI Pressure Half Time 879.0 ms LVOT Peak Velocity 86.8 cm/s LVOT Peak Gradient 3.0 mmHg LVOT Velocity Time Integral 17.3 cm MV Area PHT 1.8 cm??? Mitral E Point Velocity 48.6 cm/s Mitral A Point Velocity 50.3 cm/s Mitral E to A Ratio 1.0 MV Deceleration Time 414.3 ms MV E' Velocity 5.3 cm/s Mitral E to MV E' Ratio 9.2 TR Peak Velocity 247.0 cm/s TR Peak Gradient 24.4 mmHg Right Ventricular Systolic Press 27.7 mmHg FINDINGS Left Ventricle Moderate to severely increased septal wall thickness. Left ventricular ejection fraction is estimated at 50 -55 %. Right Ventricle Mild right ventricular dilatation. Right ventricular systolic pressure within normal limits. Right Atrium Normal right atrial size. Left Atrium Moderately increased left atrial volume. Mitral Valve Structurally normal mitral valve. Mild mitral annular calcification. Mild-to- moderate mitral regurgitation. Aortic Valve Trileaflet aortic valve. No aortic stenosis. Mild aortic regurgitation. Tricuspid Valve Mild tricuspid regurgitation. Pulmonic Valve Trace pulmonic regurgitation. Pericardium No pericardial effusion. Aorta Normal size aortic root and proximal ascending aorta. CONCLUSIONS Left ventricular ejection fraction 50-55% Moderate to severely increased left ventricular wall thickness, somewhat more prominent in the septum Mild to moderate mitral regurgitation Mild aortic regurgitation Mild tricuspid regurgitation Previewed by: Dr. Matty Ha DO (Electronically Signed) Final Date: 18 January 2022 10:12
--- NOTE | 2022-01-18 10:49 | P.CRDCN ---
History of Present Illness History of present illness: HISTORY OF PRESENTING ILLNESS This is a pleasant 61-year-old male past medical history significant for Bone marrow cancer, paroxysmal atrial fibrillation s/p ablation, atrial flutter, non-ischemic cardiomyopathy, congestive heart failure, hypertension. He follows in the office with Dr. Ortega. We have been asked to see in consultation for chest pain. Patient presents to the emergency department with complaints of chest pain and shortness of breath. [place] He states he had a severe episode of atrial fibrillation, he had symptoms of palpitations, lightheadedness, felt very symptomatic and states that it lasted all day. He took an additional dose of his flecainide and states that his symptoms improved on Sunday. He states he was feeling well Sunday. However, Sunday going into Sunday he had worsening shortness of breath, cough, some chest discomfort with deep breathing. Hustle he had crackles in his lungs. He was concerned of heart failure exacerbation and came to the ER for further evaluation. He was given IV Lasix with improvement in his symptoms. His chest pain was aggravated by deep breathing. It was nonradiating, nonexertional, no specific alleviating factors. His chest pain has resolved. His shortness of breath has improved. He denies any fever or chills. He was found to have a significant elevated white count and started on IV antibiotics. He denies any tobacco use, currently does drink 2-3 beers per day. DIAGNOSTICS * EKG reveals sinus rhythm HR 90, first degree AV block, peak T wave noted on repeat EKG. Prior EKG patient in atrial fibrillation * Echocardiogram 03/2021 EF 45-50%, LA dilated, mild AR, moderate MR, mild tricuspid regurgitation, mild pulmonary hypertension * Telemetry tracings indicate sinus rhythm HR 60s * Chest xray COPD with small bilateral pleural effusion * Laboratory reviewed, WBC 24.3, Hgb 12.1, Plt 565, Sodium 141, K 4.4, BUN 14, sCr 1.07, Mag 1.4, Troponin negative x 3, pro BNP 2750 * Current home medications include metoprolol succinate 100mg BID, flecainide 50mg BID, lisinopril 5mg daily, Xarelto 15mg daily, atorvastatin 20mg daily * Cardiac catheterization in 2017 minimal coronary artery disease REVIEW OF SYSTEMS At the time of my exam: CONSTITUTIONAL: Denies fever or chills. CARDIOVASCULAR: Denies chest pain, shortness of breath, orthopnea, PND or palpitations. RESPIRATORY: Denies cough. GASTROINTESTINAL: Denies abdominal pain, diarrhea, constipation, nausea or vomiting. MUSCULOSKELETAL: Denies myalgias. NEUROLOGIC: Denies numbness, tingling, headache or weakness. ENDOCRINE: Denies fatigue, weight change, polydipsia or polyurina. GENITOURINARY: Denies burning, hematuria or urgency with micturation. HEMATOLOGIC: Denies history of anemia or bleeding. PHYSICAL EXAMINATION Blood [id number] HF 61, afebrile 94% on room air CONSTITUTIONAL: No apparent distress. HEENT: Head is normocephalic. Pupils are equal, round. Sclerae anicteric. Mucous membranes of the mouth are moist. No JVD. No carotid bruit. CHEST EXAMINATION: Lungs are clear to auscultation. No chest wall tenderness is noted on palpation or with deep breathing. HEART EXAMINATION: Regular rate and rhythm. S1, S2 heard. No murmurs, gallops or rub. ABDOMEN: Soft, nontender. Positive bowel sounds. EXTREMITIES: 2+ peripheral pulses, no lower extremity edema and no calf tenderness. SKIN: warm, dry NEUROLOGIC EXAMINATION: Patient is awake, alert and oriented x3. ASSESSMENT Chest pain, aggravated by deep breathing, resolved, troponin negative x 3 Shortness of breath Episode of likely atrial fibrillation with RVR on Sunday per patient, took extra dose of flecainide with improvement Bone marrow cancer Leukocytosis Mild non-obstructive CAD Paroxysmal atrial fibrillation s/p ablation Non-ischemic cardiomyopathy Hypertension PLAN Obtain 2D echocardiogram and doppler study to assess cardiac structure and function. IV Lasix for additional 24 hours Monitor I/Os, daily weights, renal function and electrolytes IV antibiotics per primary Continue home cardiac medications Discussed alcohol cessation with the patient Increase activity as tolerated Possible discharge home in 24-48 hours based on improvement and above findings Thank you kindly for this consultation. Nurse practitioner note has been reviewed by physician. Signing provider agrees with the documented findings, assessment, and plan of care. 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 Past Anesthesia/Blood Transfusion Reactions: No Reported Reaction Additional Past Anesthesia/Blood Transfusion Reaction / Comment(s): vertigo, Past Psychological History: No Psychological Hx Reported Smoking Status: Never smoker Past Alcohol Use History: Daily Past Drug Use History: None Reported - Past Family History Mother Family Medical History: Cancer Additional Family Medical History / Comment(s): BREAST/BONE CANCER. Father Family Medical History: Coronary Artery Disease (CAD), CVA/TIA Additional Family Medical History / Comment(s): Father had CABG and a CVA post op that took his life. Brother(s) Family Medical History: No Reported History Daughter(s) Family Medical History: No Reported History Medications and Allergies Home Medications Medication Instructions Recorded Confirmed Type allopurinoL [Zyloprim] 100 mg PO DAILY@1200 06/18/16 01/17/22 History Hydroxyurea [Hydrea] 500 mg PO DAILY@1200 11/09/17 01/17/22 History Atorvastatin [Lipitor] 20 mg PO DAILY@1200 04/17/21 01/17/22 History Flecainide Acetate 50 mg PO BID@1200,212904/17/21 01/17/22 History Metoprolol Succinate (ER) [Toprol 100 mg PO BID@1200,212904/17/21 01/17/22 History Xl] Rivaroxaban [Xarelto] 15 mg PO DAILY@1200 01/17/22 01/17/22 History lisinopriL [Zestril] 5 mg PO DAILY@1200 01/17/22 01/17/22 History Allergies Allergy/AdvReac Type Severity Reaction Status Date / Time No Known Allergies Allergy Verified 01/17/22 08:52 Physical Exam Vitals: Vital Signs Temp Pulse Pulse Resp BP BP Pulse Ox 01/18/22 04:00 98.0 F 61 18 119/72 94 L 01/18/22 02:00 16 01/18/22 00:00 97.9 F 64 16 117/74 95 01/17/22 21:15 96 01/17/22 19:45 97.8 F 72 18 114/60 95 01/17/22 15:05 98.3 F 77 15 117/63 96 01/17/22 11:00 79 16 157/91 95 01/17/22 10:00 77 18 146/90 98 01/17/22 09:23 80 18 148/93 92 L 01/17/22 09:00 89 20 158/99 95 01/17/22 08:48 97.8 F 90 20 159/92 94 L FiO2 01/18/22 04:00 01/18/22 02:00 01/18/22 00:00 01/17/22 21:15 21 01/17/22 19:45 01/17/22 15:05 01/17/22 11:00 01/17/22 10:00 01/17/22 09:23 01/17/22 09:00 01/17/22 08:48 Intake and Output 01/17/22 01/18/22 01/18/22 22:59 06:59 14:59 Intake Total 120 Output Total 0 1100 Balance 120 -1100 Intake: Oral 120 Output: Urine 0 1100 Stool 0 Urine/Stool Mix 0 Emesis 0 Oral Regurgitation 0 Other: Voiding Method Toilet Urinal # Voids 0 # Bowel Movements 0 Weight 73 kg Results 01/18/22 08:00 01/18/22 08:00 Cardiac Enzymes 01/17/22 01/17/22 01/17/22 Range/Units 09:05 09:05 11:35 AST 30 (17-59) U/L Troponin I 0.016 <0.012 (0.000-0.034) ng/mL 01/17/22 Range/Units 15:39 AST (17-59) U/L Troponin I <0.012 (0.000-0.034) ng/mL Coagulation 01/17/22 Range/Units 09:05 PT 11.3 (9.0-12.0) sec APTT 24.7 (22.0-30.0) sec CBC 01/17/22 Range/Units 09:05 WBC 24.3 H (3.8-10.6) k/uL RBC 3.15 L (4.30-5.90) m/uL Hgb 12.1 L (13.0-17.5) gm/dL Hct 35.9 L (39.0-53.0) % Plt Count 565 H (150-450) k/uL Comprehensive Metabolic Panel 01/17/22 Range/Units 09:05 Sodium 141 (137-145) mmol/L Potassium 4.4 (3.5-5.1) mmol/L Chloride 103 (98-107) mmol/L Carbon Dioxide 28 (22-30) mmol/L BUN 14 (9-20) mg/dL Creatinine 1.07 (0.66-1.25) mg/dL Glucose 105 H (74-99) mg/dL Calcium 8.8 (8.4-10.2) mg/dL AST 30 (17-59) U/L ALT 18 (4-49) U/L Alkaline Phosphatase 141 H (38-126) U/L Total Protein 6.8 (6.3-8.2) g/dL Albumin 4.3 (3.5-5.0) g/dL Current Medications Generic Name Dose Route Start Last Admin Trade Name Freq PRN Reason Stop Dose Admin Allopurinol 100 mg 01/17/22 12:00 01/17/22 11:53 Allopurinol 100 Mg Tab PO 100 mg DAILY@1200 [facility] Administration Aspirin 81 mg 01/18/22 09:00 Aspirin 81 Mg PO DAILY [facility] Atorvastatin Calcium 20 mg 01/17/22 12:00 01/17/22 11:53 Atorvastatin 20 Mg Tab PO 20 mg DAILY@1200 [facility] Administration Azithromycin 500 mg 01/17/22 15:00 01/17/22 15:18 Azithromycin 500 Mg Tab PO 01/19/22 09:01 500 mg DAILY [facility] Administration Protocol Flecainide Acetate 50 mg 01/17/22 12:00 01/17/22 19:35 Flecainide 50 Mg Tab PO 50 mg BID@1200,2130 [facility] Administration Furosemide 40 mg 01/17/22 21:00 01/17/22 19:35 Furosemide 10 Mg/Ml 4 Ml Vial IV 40 mg Q12HR [facility] Administration Hydroxyurea 500 mg 01/18/22 09:00 Hydroxyurea 500 Mg Cap PO DAILY [facility] Ceftriaxone Sodium 1 gm/ 50 mls @ 100 mls/hr 01/17/22 15:00 01/17/22 15:19 Sodium Chloride IVPB 100 mls/hr Q24HR [facility] Administration Protocol Lisinopril 5 mg 01/17/22 12:00 01/17/22 11:53 Lisinopril 5 Mg Tab PO 5 mg DAILY@1200 [facility] Administration Metoprolol Succinate 100 mg 01/17/22 12:00 01/17/22 19:35 Metoprolol Succinate (Er) 100 Mg Tab.Er.24h PO 100 mg BID@1200,2130 [facility] Administration Nitroglycerin 0.4 mg 01/17/22 11:06 Nitroglycerin Sl Tabs 0.4 Mg Tab SUBLINGUAL Q5M PRN Chest Pain Rivaroxaban 15 mg 01/17/22 12:00 01/17/22 11:52 Rivaroxaban 15 Mg Tab PO 15 mg DAILY@1200 [facility] Administration Protocol Intake and Output 01/17/22 01/18/22 01/18/22 22:59 06:59 14:59 Intake Total 120 Output Total 0 1100 Balance 120 -1100 Intake: Oral 120 Output: Urine 0 1100 Stool 0 Urine/Stool Mix 0 Emesis 0 Oral Regurgitation 0 Other: Voiding Method Toilet Urinal # Voids 0 # Bowel Movements 0 Weight 73 kg 01/17/22 09:05 01/17/22 09:05
--- NOTE | 2022-01-18 11:11 | P.PN ---
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 Sees Dr. Byrne, persistent A. fib status post cardioversions and ablation on anticoagulation, nonischemic cardiomyopathy, hypertension, and dyslipidemia presented with chest pain/pressure, and orthopnea. Patient had a s evere episode of atrial fibrillation with RVR, took an extra dose of flecainide, which resolved his RVR at home. However, then he started to experience midsternal chest pain as well as orthopnea and dyspnea at rest. On initial presentation, EKG showed normal sinus rhythm at 90 bpm with first-degree AV block, chest x-ray showed small bilateral pleural effusions and COPD, lab work consistent with leukocytosis 24.3, platelets 565, hypomagnesemia, pro-BNP at 2750 and normal troponin. Patient was started on IV Lasix, and also ceftriaxone and azithromycin. Cardiology is consulted. Subjective: Patient seen and examined at bedside. No acute events overnight. He claims that his orthopnea and shortness of breath has mostly resolved now. He claims that his WBC has been elevated for the last few months, and he has been receiving active chemotherapy from his oncologist. He denies any cough, fevers, chills, nausea, vomiting, abdominal pain, diarrhea, or constipation, or urinary complaints. Pertinent positives and negatives as discussed above, a complete review of systems was performed and all other systems are negative. Vitals Signs Reviewed. General: nontoxic, no distress, appears at stated age Derm: warm, dry Head: atraumatic, normocephalic, symmetric Eyes: EOMI, no lid lag, anicteric sclera Mouth: no lip lesion, mucus membranes moist Cardiovascular: S1S2 reg, no murmur Lungs: Reduced breath sounds at the bases bilaterally, no accessory muscle use Abdominal: soft, nontender to palpation, no guarding, no appreciable organomegaly Ext: no gross muscle atrophy, no edema, no contractures Neuro: CN II-XI grossly intact, no focal neuro deficits Psych: Alert, oriented, appropriate affect Assessment and Plan: Acute on chronic heart failure, diastolic Chest pain History of nonischemic cardiomyopathy History of persistent atrial fibrillation Hypertension Hyperlipidemia -BNP 2750 -Lasix 40 mg IVP twice daily -Close monitoring of I's and O's -Daily weights -Telemetry monitoring -Negative troponin -Cardiology consult, appreciate further recommendations -Continue Xarelto, Aspirin, atorvastatin, lisinopril, flecainide and metoprolol -Lipid panel pending -Echocardiogram - LVEF 50-55%, moderate to severe LV wall thickness more prominent in the septum Leukocytosis, downtrending Bilateral pleural effusions -Per patient, has had leukocytosis in the last few months, data not available in EMR -Pro-calcitonin mildly elevated -Blood cultures pending, UA negative -will continue azithromycin and ceftriaxone for now -Oncology consulted Hypomagnesemia -Result Bone marrow cancer Thrombocytosis -Continue hydroxyurea -Oncology consulted DVT ppx: xarelto Code status: Full code Anticipated discharge place: Home Anticipated discharge time: 1-2 days Objective - Vital Signs Vital signs: Vital Signs Temp 98.0 F 01/18/22 08:58 Pulse 62 01/18/22 09:00 Resp 18 01/18/22 09:00 BP 135/79 01/18/22 08:58 Pulse Ox 95 01/18/22 08:58 FiO2 21 01/17/22 21:15 Intake & Output 01/17/22 01/18/22 01/18/22 18:59 06:59 18:59 Intake Total 120 Output Total 0 1100 200 Balance 120 -1100 -200 Weight 74.843 kg 73 kg Intake: Oral 120 Output: Urine 0 1100 200 Stool 0 0 0 Urine/Stool Mix 0 Emesis 0 Oral Regurgitation 0 Other: Voiding Method Toilet Urinal Urinal # Voids 0 # Bowel Movements 0 - Labs CBC & Chem 7: 01/18/22 08:00 01/18/22 08:00 Labs: Abnormal Lab Results - Last 24 Hours (Table) 01/17/22 01/18/22 01/18/22 Range/Units 15:39 08:00 08:00 WBC 18.6 H (3.8-10.6) k/uL RBC 3.12 L (4.30-5.90) m/uL Hgb 12.2 L (13.0-17.5) gm/dL Hct 36.0 L (39.0-53.0) % MCV 115.2 H (80.0-100.0) fL MCH 38.9 H (25.0-35.0) pg RDW 17.9 H (11.5-15.5) % Plt Count 472 H (150-450) k/uL Macrocytosis Marked A Chloride 97 L (98-107) mmol/L Carbon Dioxide 34 H (22-30) mmol/L Calcium 8.3 L (8.4-10.2) mg/dL Total Bilirubin 1.7 H (0.2-1.3) mg/dL Alkaline Phosphatase 135 H (38-126) U/L Total Protein 6.1 L (6.3-8.2) g/dL Procalcitonin 0.15 H (0.02-0.09) ng/mL
[2022-01-18] MEDS: allopurinoL 100 MG TAB PO SCH (12:34)
[2022-01-18] MEDS: METOPROLOL SUCCINATE (ER) 100 MG TAB.ER.24H PO SCH ×2 (12:34→20:18)
[2022-01-18] MEDS: ATORVASTATIN 20 MG TAB PO SCH (12:34)
[2022-01-18] MEDS: FLECAINIDE 50 MG TAB PO SCH ×2 (12:34→20:18)
[2022-01-18] MEDS: RIVAROXABAN 15 MG TAB PO SCH (12:34)
[2022-01-18] MEDS: lisinopriL 5 MG TAB PO SCH (12:34)
[2022-01-18 16:25] LABS: Chol/HDL Ratio 3.01 Ratio; LDL Cholesterol,Calculated 59.3 mg/dL (0.0-131.0)
--- NOTE | 2022-01-18 22:55 | P.CONS ---
History of Present Illness - Reason for Consult Consult date: 01/18/22 leukocytosis Requesting physician: Grady Colunga - Chief Complaint chest pain, SOB - History of Present Illness Mr Ocampo is a male pt of Dr. Byrne who we have been asked to see regarding his elevated WBC. He has a Hx of elevated WBC and plt, 1st noted in 03/22/16, when he was admitted for CHF. Elevated counts persisted as an outpatient. He had repeat labs done on 04/27/16 with Hgb 14.4, plt 622, and WBC 21.3. Work up showed BINTA 2 V617 F mutation was positive. Other labs ( iron studies, inflammatory markers) were essentially negative. Dx primary MPD, most c/w ET. He was started on Hydrea 500 /d, and a baby ASA. His dose was increased to BID in 06/12, due to lack of response, and then TID in 08/12. He dropped his Hgb on the TID dose and was adjusted to TID MWF and BID other days on 10/23/16. His dose was adjusted for anemia and then pt had insurance lapse and was not seen for some time. He was offered BM Bx 06/15 but he didn't want. He was also on and off xarelto for a fib. He had drop in counts when he had covid around 06/17. Last visit was 11/28/21, WBC was 19, plt >500K. He is currently admitted with chest pain, feelings of fluttering in chest, SOB on exertion, felt he was having CHF exacerbation. He is feeling better since admit, he has received lasix. He has a PMH of HTN, hyperlipidemia, afib, COPD. 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 Past Anesthesia/Blood Transfusion Reactions: No Reported Reaction Additional Past Anesthesia/Blood Transfusion Reaction / Comm: vertigo, Past Psychological History: No Psychological Hx Reported Smoking Status: Never smoker Past Alcohol Use History: Daily Past Drug Use History: None Reported - Past Family History Mother Family Medical History: Cancer Additional Family Medical History / Comment(s): BREAST/BONE CANCER. Father Family Medical History: Coronary Artery Disease (CAD), CVA/TIA Additional Family Medical History / Comment(s): Father had CABG and a CVA post op that took his life. Brother(s) Family Medical History: No Reported History Daughter(s) Family Medical History: No Reported History Medications and Allergies Home Medications Medication Instructions Recorded Confirmed Type allopurinoL [Zyloprim] 100 mg PO DAILY@1200 06/18/16 01/17/22 History Hydroxyurea [Hydrea] 500 mg PO DAILY@1200 11/09/17 01/17/22 History Atorvastatin [Lipitor] 20 mg PO DAILY@1200 04/17/21 01/17/22 History Flecainide Acetate 50 mg PO BID@1200,212904/17/21 01/17/22 History Metoprolol Succinate (ER) [Toprol 100 mg PO BID@1200,2130 04/17/21 01/17/22 History Xl] Rivaroxaban [Xarelto] 15 mg PO DAILY@1200 01/17/22 01/17/22 History lisinopriL [Zestril] 5 mg PO DAILY@1200 01/17/22 01/17/22 History Allergies Allergy/AdvReac Type Severity Reaction Status Date / Time No Known Allergies Allergy Verified 01/17/22 08:52 Physical Exam Vitals: Vital Signs Temp Pulse Resp BP Pulse Ox FiO2 01/18/22 16:00 98.4 F 66 18 113/66 95 01/18/22 14:00 67 18 01/18/22 12:00 67 18 105/66 93 L 01/18/22 09:00 62 18 01/18/22 08:58 98.0 F 62 18 135/79 95 01/18/22 04:00 98.0 F 61 18 119/72 94 L 01/18/22 02:00 16 01/18/22 00:00 97.9 F 64 16 117/74 95 01/17/22 21:15 96 21 01/17/22 19:45 97.8 F 72 18 114/60 95 Intake and Output 01/18/22 01/18/22 01/18/22 06:59 14:59 22:59 Output Total 1100 200 700 Balance -1100 -200 -700 Output: Urine 1100 200 700 Stool 0 Other: Voiding Method Urinal Urinal Weight 73 kg - Constitutional General appearance: average body habitus, cooperative, no acute distress - EENT Eyes: anicteric sclerae ENT: hearing grossly normal, normal oropharynx - Neck Neck: no lymphadenopathy - Respiratory Respiratory: bilateral: diminished - Cardiovascular Heart sounds: normal: S1, S2 leg Peripheral Edema: bilateral: None - Gastrointestinal General gastrointestinal: no absent bowel sounds, no decreased bowel sounds, no distended, no hepatomegaly, no hyperactive bowel sounds, normal bowel sounds, no organomegaly, no rigid, no scaphoid, soft, no splenomegaly, no tenderness, no umbilical hernia, no ventral hernia - Integumentary Integumentary: normal - Neurologic Neurologic: CNII-XII intact - Musculoskeletal Musculoskeletal: strength equal bilaterally - Psychiatric Psychiatric: A&O x's 3, appropriate affect, intact judgment & insight Results CBC & Chem 7: 01/18/22 08:00 01/18/22 08:00 Labs: Abnormal Lab Results - Last 24 Hours (Table) 01/17/22 01/18/22 01/18/22 Range/Units 15:39 08:00 08:00 WBC 18.6 H (3.8-10.6) k/uL RBC 3.12 L (4.30-5.90) m/uL Hgb 12.2 L (13.0-17.5) gm/dL Hct 36.0 L (39.0-53.0) % MCV 115.2 H (80.0-100.0) fL MCH 38.9 H (25.0-35.0) pg RDW 17.9 H (11.5-15.5) % Plt Count 472 H (150-450) k/uL Macrocytosis Marked A Chloride 97 L (98-107) mmol/L Carbon Dioxide 34 H (22-30) mmol/L Calcium 8.3 L (8.4-10.2) mg/dL Total Bilirubin 1.7 H (0.2-1.3) mg/dL Alkaline Phosphatase 135 H (38-126) U/L Total Protein 6.1 L (6.3-8.2) g/dL Procalcitonin 0.15 H (0.02-0.09) ng/mL Chest x-ray: report reviewed Venous US: report reviewed Assessment and Plan (1) JAK2 V617F mutation Current Visit: Yes Status: Chronic Priority: Medium Code(s): Z15.89 - GENETIC SUSCEPTIBILITY TO OTHER DISEASE SNOMED Code(s): 66192615 Plan: Pt on hydrea, stops at times. Currently his CBC is most consistent with his previous labs in ofc. WBC in the high teens/20's range, plt 400-600K range. Cont hydrea for now. Pt has f/u already scheduled.
[2022-01-19 04:47] VITALS: RESP 18; TEMP 98
[2022-01-19 05:26] LABS: Calcium 8.7 mg/dL (8.4-10.2)
[2022-01-19 05:28] LABS: Anisocytosis Slight; Basophils # (A) 0.1 k/uL (0-0.2); Basophils % (A) 1 %; Eosinophils # (A) 0.2 k/uL (0-0.7); Eosinophils % (A) 1 %; HCT 38.3 % (39.0-53.0); HGB 12.5 gm/dL (13.0-17.5); Lymphocytes # (A) 1.2 k/uL (1.0-4.8); Lymphocytes % (A) 7 %; MCH 37.3 pg (25.0-35.0); MCHC 32.7 g/dL (31.0-37.0); MCV 114.2 fL (80.0-100.0); Macrocytosis Marked; Mean Platelet Volume 9.5; Monocytes # (A) 0.4 k/uL (0-1.0); Monocytes % (A) 2 %; Neutrophils # (A) 15.7 k/uL (1.3-7.7); Neutrophils % (A) 88 %; Platelet Count 491 k/uL (150-450); Poikilocytosis Slight; RBC 3.35 m/uL (4.30-5.90); RDW 18.5 % (11.5-15.5); WBC 17.9 k/uL (3.8-10.6)
[2022-01-19] MEDS: AZITHROMYCIN 500 MG TAB PO SCH (08:48)
[2022-01-19] MEDS: HYDROXYUREA 500 MG CAP PO SCH (08:48)
[2022-01-19] MEDS: FUROSEMIDE 10 MG/ML 4 ML VIAL IV SCH ×2 (08:48→08:56)
[2022-01-19] MEDS: ASPIRIN 81 MG PO SCH (08:48)
[2022-01-19 08:53] VITALS: BP 123/74; PULSE 61
--- NOTE | 2022-01-19 11:12 | P.DS ---
Providers Date of admission: 01/17/22 11:06 Expected date of discharge: 01/19/22 Attending physician: Feng Rojas MD Consults: 01/17/22 11:06 Consult Physician Urgent Consulting Provider: Anoop Ortega Consult Reason/Comments: chest pain Do you want consulting provider notified?: Yes 01/18/22 11:06 Consult Physician Routine Consulting Provider: Constantino Byrne Consult Reason/Comments: leukocytosis, unsure if related to his malignancy or infection Do you want consulting provider notified?: Yes Primary care physician: Stated None Hospital Course: Discharge Diagnosis: Acute on chronic heart failure exacerbation, diastolic Chest pain Bilateral pleural effusions History of nonischemic cardiomyopathy History of persistent atrial fibrillation Hypertension Dyslipidemia Gout flare Leukocytosis Thrombocytosis Hypomagnesemia Hospital Course: 61-year-old male with history of 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 fib status post cardioversions and ablation on anticoagulation, nonischemic cardiomyopathy, hypertension, and dyslipidemia presented with chest pain/pressure, and orthopnea. Patient had a severe episode of atrial fibrillation with RVR, took an extra dose of flecainide, which resolved his RVR at home. However, then he started to experience midsternal chest pain as well as orthopnea and dyspnea at rest. On initial presentation, EKG showed normal sinus rhythm at 90 bpm with first-degree AV block, chest x-ray showed small bilateral pleural effusions and COPD, lab work consistent with leukocytosis 24.3, platelets 565, hypomagnesemia, pro-BNP at 2750 and normal troponin. Patient was started on IV Lasix, and also ceftriaxone and azithromycin. Cardiology is consulted. Patient has significant improvement with IV diuretics. Will be discharged oral diuretics as needed. His dry weight is 165 pounds. Patient advised to take dose of Lasix when above dry weight, or worsening shortness of breath. Leukocytosis likely secondary to underlying hematologic disease, was seen by oncology. No concerns for an acute infection. Antibiotics discontinued. Patient also had developed a gout flare likely secondary to diuretics, will be discharged on indomethacin for only 5 days. Patient to follow-up with his PCP for repeat BMP. Patient will also follow-up with cardiology and oncology as an outpatient. Patient seen and examined at bedside. Vital signs reviewed and stable. General: nontoxic, no distress, appears at stated age Derm: warm, dry Head: atraumatic, normocephalic, symmetric Eyes: EOMI, no lid lag, anicteric sclera Mouth: no lip lesion, mucus membranes moist Cardiovascular: S1S2 reg, no murmur Lungs: Reduced breath sounds at the bases bilaterally, no accessory muscle use Abdominal: soft, nontender to palpation, no guarding, no appreciable organomegaly Ext: no gross muscle atrophy, no edema, no contractures, right first MTP synovitis Neuro: CN II-XI grossly intact, no focal neuro deficits Psych: Alert, oriented, appropriate affect A total of 36 minutes of time were spent preparing this complex discharge summary. Patient was discharged on 01/19/22 at 9:51. Patient Condition at Discharge: Stable Plan - Discharge Summary Discharge Rx Participant: No New Discharge Prescriptions: New Furosemide [Lasix] 40 mg PO DAILY PRN #30 tablet PRN Reason: For Volume Indomethacin [Indocin] 50 mg PO TID #15 capsule Continue allopurinoL [Zyloprim] 100 mg PO DAILY@1200 Hydroxyurea [Hydrea] 500 mg PO DAILY@1200 lisinopriL [Zestril] 5 mg PO DAILY@1200 Metoprolol Succinate (ER) [Toprol XL] 100 mg PO BID@1199,2129 Flecainide Acetate 50 mg PO BID@1199,2129 Atorvastatin [Lipitor] 20 mg PO DAILY@1200 Rivaroxaban [Xarelto] 15 mg PO DAILY@1200 Discharge Medication List allopurinoL [Zyloprim] 100 mg PO DAILY@1200 06/18/16 [History] Hydroxyurea [Hydrea] 500 mg PO DAILY@1200 11/09/17 [History] Atorvastatin [Lipitor] 20 mg PO DAILY@119904/17/21 [History] Flecainide Acetate 50 mg PO BID@1199,212904/17/21 [History] Metoprolol Succinate (ER) [Toprol XL] 100 mg PO BID@1199,212904/17/21 [History] Rivaroxaban [Xarelto] 15 mg PO DAILY@1200 01/17/22 [History] lisinopriL [Zestril] 5 mg PO DAILY@1200 01/17/22 [History] Furosemide [Lasix] 40 mg PO DAILY PRN #30 tablet 01/19/22 [Rx] Indomethacin [Indocin] 50 mg PO TID #15 capsule 01/19/22 [Rx] Follow up Appointment(s)/Referral(s): Constantino Byrne MD [STAFF PHYSICIAN] - 02/01/22 9:45 am (This appt is at the [facility]) Anoop Ortega MD [Family Provider] - 2 Weeks Yosef Rick MD [REFERRING] - 1-2 Days Patient Instructions/Handouts: Heart Failure (DC) Activity/Diet/Wound Care/Special Instructions: Please see your PCP in 1-2 days. 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 You have a prescription for indomethacin that helps with gout. However, it does increase your risk for bleeding and kidney dysfunction. Your PCP should do more blood work in 1 week to see if your kidney function is adequate. Please take your lasix if weight above 165 lbs or if you have worsening shortness of breath. See Dr. Ortega in his office as soon as possible. Discharge Disposition: HOME SELF-CARE
== END 2022-01-19 11:04 | disposition home or self-care (01) | DRG 291 ==
LOC: EC 08:47 → 3SCARD 11:06
PROVIDERS: ADMIT Family Medicine; ATTEND Family Medicine
DX: I11.0 Hypertensive heart disease with heart failure (principal); I50.33 Acute on chronic diastolic (congestive) heart failure; J18.9 Pneumonia, unspecified organism; I48.19 Other persistent atrial fibrillation; J44.0 Chronic obstructive pulmonary disease with (acute) lower respiratory infection; M19.90 Unspecified osteoarthritis, unspecified site; I42.8 Other cardiomyopathies; I08.3 Combined rheumatic disorders of mitral, aortic and tricuspid valves; T50.2X5A Adverse effect of carbonic-anhydrase inhibitors, benzothiadiazides and other diuretics, initial encounter; Z86.16 Personal history of COVID-19; H54.8 Legal blindness, as defined in USA; E78.5 Hyperlipidemia, unspecified; D50.9 Iron deficiency anemia, unspecified; D75.839 Thrombocytosis, unspecified; E83.42 Hypomagnesemia; I25.10 Atherosclerotic heart disease of native coronary artery without angina pectoris; I27.20 Pulmonary hypertension, unspecified; I44.0 Atrioventricular block, first degree; M10.9 Gout, unspecified; X58.XXXA Exposure to other specified factors, initial encounter; Z79.01 Long term (current) use of anticoagulants; Z79.899 Other long term (current) drug therapy; Z82.49 Family history of ischemic heart disease and other diseases of the circulatory system; Z90.49 Acquired absence of other specified parts of digestive tract; Z87.19 Personal history of other diseases of the digestive system
CPT/HCPCS: 36415; 71046; 80048; 80053; 80061; 81003; 83735; 83880; 84145; 84484; 85025; 85027; 85610; 85730; 87040; 93005; 93306; 94760; 96365; 96375; 99285

== ENCOUNTER → 2022-10-04 | Outpatient (CLI) | payer BC ==
--- NOTE | 2022-10-06 11:30 | MR ---
EXAMINATION TYPE: MR Prostate wo/w con DATE OF EXAM: 10/04/2022 9:24 AM COMPARISON: None. CLINICAL INDICATION:Male, 62 years old with history of R97.20 elevated psa; TECHNIQUE: Multi-planar, multi-sequence imaging of the pelvis is performed prior to and following the uncomplicated administration of bolus intravenous gadolinium. CONTRAST: 8 Gadavist Interpretive Criteria: PI-RADS v2.1 SERUM PSA: 8.2 on 08/30/2022. (FAX is difficult to read) 6.8 on 07/19/2022. SURGICAL PATHOLOGY: No data available. FINDINGS: Prostatic dimensions: 4.8 x 4.2 x 3.0 cm. "Bullet" Volume:39.58 (PSA density=0.21 ng/mL/mL) CENTRAL GLAND (Central and Transition Zones/CZ+TZ): Low T2 signal area without evidence for high DWI are low ADC signal in the right mid gland measuring 12 x 12 x 9 mm. Series 501 image 21 and series 301 image 24. (PI-RADS 3) PERIPHERAL ZONE (PZ): Bilateral linear, indistinct wedgelike areas of low ADC, and low T2 signal, No evidence of masslike a bnormality, or localized perfusional hypervascularity, to further suggest a focus of clinically signi ficant prostate cancer. (PI-RADS 2) SEMINAL VESICLES (SV): Symmetric and unremarkable. PERIPROSTATIC TISSUES: Unremarkable. LYMPH NODES: No enlarged pelvic lymph node. REMAINING PELVIS: Bladder wall is within normal limits given distention. No abnormal free or organized intrapelvic fluid collection. No pathologic bowel dilation or mural thickening. OSSEOUS STRUCTURES: No suspicious osseous abnormality. IMPRESSION: 1. PI-RADS 3 lesion right central gland involving the mid gland measuring 12 x 12 x 9 mm. Maximum PI- RADS score: 3. 2. Mild BPH, estimated gland volume 39.58 mL. 3. Diffuse red marrow conversion can be seen in the setting of tobacco abuse, anemia, or myeloprolife rative disorder.
== END | disposition home or self-care (01) ==
LOC: RADMRIMAIN 07:36
PROVIDERS: ATTEND Urology
DX: N40.0 Benign prostatic hyperplasia without lower urinary tract symptoms (principal); R97.20 Elevated prostate specific antigen [PSA]; N42.9 Disorder of prostate, unspecified
CPT/HCPCS: 72197; A9585

== ENCOUNTER 2023-04-04 08:14 | Day surgery (SDC) | payer MEDICARE, OTHER ==
[2023-04-02 11:44] VITALS: BMI 20.9
[~2023-04-04 08:14] MED LIST changes: -HYDROmorphone 1 MG/ML 1 ML SYRINGE IVP PRN; -LACTATED RINGERS 1,000 ML IV SCH; +LIDOCAINE 1% (10MG/ML) FOR IV START INTRADERMA PRN; -LIDOCAINE 1% 20 ML VIAL (10MG/ML) FOR IV START INTRADERMA PRN; -ONDANSETRON 4 MG/2 ML VIAL IVP ONE; -SODIUM CHLORIDE 0.9% 1,000 ML IV SCH
[2023-04-04] MEDS: LACTATED RINGERS 1,000 ML IV SCH (08:34)
[2023-04-04 09:12] VITALS: RESP 16; TEMP 97
[2023-04-04] MEDS ORDERED: PROPOFOL 10 MG/ML 20 ML VIAL IV ONE (09:24)
--- NOTE | 2023-04-04 09:40 | P.PCN ---
Date of Procedure: 04/04/23 Procedure(s) Performed: BRIEF HISTORY: Patient is a 62-year-old pleasant white male scheduled for an elective colonoscopy as a part of screening for colon cancer. PROCEDURE PERFORMED: Colonoscopy with biopsy. PREOPERATIVE DIAGNOSIS: Screening for colon cancer. IV sedation per Anesthesia. PROCEDURE: After informed consent was obtained, the patient, was brought into the endoscopy unit. IV sedation was administered by Anesthesia under continuous monitoring. Digital rectal examination was normal. Initially the Olympus CF-160 flexible video colonoscope was then inserted in the rectum, gradually advanced into the cecum without any difficulty. Careful examination was performed as the scope was gradually being withdrawn. Ileocecal valve and the appendiceal orifice were visualized and appeared normal. Prep was excellent. Mucosa of the cecum, adequately millimeters polyp that was removed by cold biopsy. Rest of the ascending colon, transverse colon, descending colon, sigmoid colon, and rectum appeared normal.; There was a 4 minute a polyp that was removed by cold biopsy. Retroflexion was performed in the rectum and small internal hemorrhoids were seen. The patient tolerated the procedure well. IMPRESSION: 3 mm cecal polyp status post cold biopsy 4 mm sigmoid colon polyp status post cold biopsy Small internal hemorrhoids RECOMMENDATIONS: Findings of this examination were discussed with the patient as well as his family. He was advised to follow with the biopsy results biopsies adenoma he can have a repeat colonoscopy in 5 years..
[2023-04-04 10:43] VITALS: BP 115/70; PULSE 61
== END 2023-04-04 10:22 | disposition home or self-care (01) ==
LOC: ORWHC2ENDO 08:14
PROVIDERS: ATTEND Internal Medicine Gastroenterology
DX: Z12.11 Encounter for screening for malignant neoplasm of colon (principal); K63.5 Polyp of colon; K64.8 Other hemorrhoids; I11.0 Hypertensive heart disease with heart failure; I50.9 Heart failure, unspecified; E78.5 Hyperlipidemia, unspecified; I48.92 Unspecified atrial flutter; J44.9 Chronic obstructive pulmonary disease, unspecified; N40.0 Benign prostatic hyperplasia without lower urinary tract symptoms; K21.9 Gastro-esophageal reflux disease without esophagitis; Z85.46 Personal history of malignant neoplasm of prostate; Z79.01 Long term (current) use of anticoagulants; Z79.899 Other long term (current) drug therapy
CPT/HCPCS: 88305; 45380; J2704

== ENCOUNTER → 2023-04-25 | Day surgery (SDC) | payer MEDICARE, OTHER ==
[~2023-04-25] MED LIST changes: +DEXAMETHASONE SOD PHOSPHATE 4 MG/ML 1 ML VIAL IV ONE; +DEXAMETHASONE SOD PHOSPHATE 4 MG/ML 1 ML VIAL ONE; +HYDROmorphone 0.5 MG/0.5 ML SYRINGE IVP PRN; -LIDOCAINE 1% (10MG/ML) FOR IV START INTRADERMA PRN; +MIDAZOLAM 2 MG/2 ML VIAL ONE; +ONDANSETRON 4 MG/2 ML VIAL IVP ONE; +ONDANSETRON 4 MG/2 ML VIAL ONE; +PROPOFOL 10 MG/ML 20 ML VIAL IV ONE; +fentaNYL (PF) 50 MCG/ML 2 ML AMP ONE
[2023-04-25] MEDS: LACTATED RINGERS 1,000 ML IV SCH (07:44)
[2023-04-25] MEDS: LIDOCAINE 2% INJ 20 MG/ML SQ ONE ×2 (08:09)
[2023-04-25 08:13] VITALS: TEMP 96.6
[2023-04-25 08:48] VITALS: RESP 14
--- NOTE | 2023-04-25 08:53 | P.OP ---
Date of Procedure: 04/25/23 Preoperative Diagnosis: Prostate cancer Postoperative Diagnosis: Same Procedure(s) Performed: SpaceOAR gel placement Implants: SpaceOAR gel Anesthesia: MANUELA Surgeon: Campos Pedroza Estimated Blood Loss (ml): 0 Pathology: none sent Condition: stable Disposition: PACU Indications for Procedure: The patient is a 63-year-old male with no family history of prostate cancer. His PSA level in June was 6.8, and in September 02 0.2. SOLE revealed the prostate to be moderately enlarged but smooth. MRI of the prostate showed a prostate volume of 39.6 mL, with a PIRADS-3 lesion involving the right central mid gland. In October 2022, he underwent MRI fusion biopsies of the prostate. 4 biopsies showed evidence of Verónica 6/7 adenocarcinoma of the prostate. He has been seen by Dr. Grimes and has elected to be treated with IMRT. Treatment has been somewhat delayed due to the fact that he was receiving chemotherapy for multiple myeloma. He now comes for SpaceOAR implant. Description of Procedure: The patient was taken to the operating room and placed in the dorsolithotomy position, with his legs supported in Ramón stirrups. The external genitalia was prepped and draped sterilely. The transrectal ultrasound probe was placed intrarectally. The prostate was imaged. The probe was then placed within the stabilizing stand. A spinal needle was advanced under ultrasonic guidance to the level of the urogenital diaphragm, and lidocaine was used to infiltrate the tissues as the needle was withdrawn. Next, the SpaceOAR needle was passed through the midline of the perineum, 1-2 cm anterior to the anal opening. The needle was slowly advanced under ultrasonic guidance until the needle tip was located within the fat plane between the prostate and rectum, at the level of the mid prostate gland. The needle was confirmed to be midline on the axial imaging. A small amount of normal saline was injected for hydrodissection. Next, the SpaceOAR components were mixed and loaded into the Y connector per protocol. The Y connector was then connected to the needle, and the components were injected slowly over a course of approximately 10 seconds. A total of 10 ml was injected. Significant distance was created between the prostate and rectum, as desired. It should be noted that at no point was there any concern of rectal perforation. The needle was withdrawn, as well as the transrectal ultrasound probe, and the procedure was terminated. The patient tolerated the procedure well and was taken to the recovery room in stable condition
[2023-04-25 09:21] VITALS: BP 116/69; PULSE 65
== END ==
LOC: OR 06:45
PROVIDERS: ATTEND Urology
DX: C61 Malignant neoplasm of prostate (principal); I11.0 Hypertensive heart disease with heart failure; E78.5 Hyperlipidemia, unspecified; I50.9 Heart failure, unspecified; I48.91 Unspecified atrial fibrillation; J44.9 Chronic obstructive pulmonary disease, unspecified; Z79.01 Long term (current) use of anticoagulants; Z79.899 Other long term (current) drug therapy
CPT/HCPCS: 55874; C1889; J2001; J2250; J1100; J0690; J2405; J3010; J2704

== ENCOUNTER 2023-06-26 10:01 | Day surgery (SDC) | payer MEDICARE, OTHER ==
[2023-06-26] MEDS: LACTATED RINGERS 1,000 ML IV SCH (10:25)
[2023-06-26 11:06] VITALS: TEMP 96.9
[2023-06-26] MEDS ORDERED: LIDOCAINE 1% INJ 10MG/ML (20 ML MDV) ONE (11:31)
[2023-06-26] MEDS ORDERED: PROPOFOL 10 MG/ML 20 ML VIAL IV ONE (11:31)
[2023-06-26] MEDS: IV FLUID CONTINUATION 1,000 ML IV ONE (11:39)
--- NOTE | 2023-06-26 11:42 | P.PCN ---
Date of Procedure: 06/26/23 Procedure(s) Performed: BRIEF HISTORY: Patient is a 63-year-old, pleasant, white male scheduled for a colonoscopy for further evaluation of intermittent dysphagia to solids for the last 1 year duration. Usually feels food gets stuck in his throat area.. PROCEDURE PERFORMED: Esophagogastroduodenoscopy with biopsy and dilation. PREOPERATIVE DIAGNOSIS: Intermittent dysphagia to solids of 1 year duration. IV sedation per anesthesia. PROCEDURE: After informed consent was obtained, the patient was brought into the endoscopy unit. IV sedation was administered by Anesthesia under continuous monitoring. Initially the Olympus GIF-140 video endoscope was inserted into the mouth. Esophagus intubated without any difficulty. It was gradually advanced into the stomach and duodenum and carefully examined. The bulb and the second part of the duodenum appeared normal. The scope at this time was withdrawn to the stomach, adequately insufflated with air, and upon careful examination, mucosa of the antrum, body, cardia and the fundus appeared normal. The scope was then withdrawn into the esophagus. Small hiatal hernia noted. The GE junction was located at 41 cm from the incisors. The distal esophageal Schatzki's ring identified that was dilated using 18 to 20 mm TTS balloon for 30 seconds. There was a short segment of Malloy's esophagus with a tongue of mucosa extending 3 mm proximal to the GE junction that was biopsied. The rest of the esophagus appeared normal. There were no erosions or ulcerations seen. The proximal cervical esophagus was carefully examined and appeared normal and the patient tolerated the procedure well. IMPRESSION: 1. Distal esophageal Schatzki's ring s/p balloon dilation using 18 to 20 mm TTS balloon as described above. 2. Small hiatal hernia 3. Short segment Malloy's esophagus status post. RECOMMENDATIONS: The findings of this examination were discussed with the patient as well as his family. He was advised to be on clear liquids for 2 hours. Follow-up with the biopsy results. Follow-up in the office in 3 months..
[2023-06-26 11:51] VITALS: RESP 16
[2023-06-26 12:34] VITALS: BP 126/76; PULSE 60
== END 2023-06-26 12:14 | disposition home or self-care (01) ==
LOC: ORWHC2ENDO 10:01
PROVIDERS: ATTEND Internal Medicine Gastroenterology
DX: K20.90 Esophagitis, unspecified without bleeding (principal); K44.9 Diaphragmatic hernia without obstruction or gangrene; K22.70 Barrett's esophagus without dysplasia; K22.2 Esophageal obstruction; I11.0 Hypertensive heart disease with heart failure; I50.9 Heart failure, unspecified; I48.91 Unspecified atrial fibrillation; J44.9 Chronic obstructive pulmonary disease, unspecified; I42.8 Other cardiomyopathies; Z79.01 Long term (current) use of anticoagulants; Z79.51 Long term (current) use of inhaled steroids; Z85.46 Personal history of malignant neoplasm of prostate; Z79.899 Other long term (current) drug therapy
CPT/HCPCS: 88305; 43239; 43249; J2001; J2704; C1726

== ENCOUNTER 2023-07-04 16:04 | Emergency (ER) | payer MEDICARE, OTHER ==
[2023-07-04 16:43] VITALS: RESP 18
--- NOTE | 2023-07-04 18:10 | XR ---
EXAMINATION TYPE: XR chest 2V DATE OF EXAM: 07/04/2023 5:59 PM CLINICAL INDICATION:Male, 63 years old with history of dysrhythmia; [facility] COMPARISON: 01/17/2022 TECHNIQUE: XR chest 2V Frontal and lateral views of the chest. FINDINGS: Lungs/Pleura: There is no evidence of pleural effusion, focal consolidation, or pneumothorax. Pulmonary vascularity: Unremarkable. Heart/mediastinum: Cardiomediastinal silhouette is unremarkable. Musculoskeletal: No acute osseous pathology. IMPRESSION: No acute cardiopulmonary disease/process.
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
[2023-07-04] MEDS: SODIUM CHLORIDE 0.9% 1,000 ML IV ONE (18:25)
[2023-07-04 18:26] LABS: Anisocytosis Slight; HCT 43.7 % (39.0-53.0); HGB 14.1 gm/dL (13.0-17.5); MCH 35.1 pg (25.0-35.0); MCHC 32.2 g/dL (31.0-37.0); MCV 109.1 fL (80.0-100.0); Macrocytosis Marked; Mean Platelet Volume 8.5; Platelet Count 421 k/uL (150-450); RDW 16.6 % (11.5-15.5); WBC 17.7 k/uL (3.8-10.6)
[2023-07-04 18:36] LABS: INR 1.6 (<1.2); Partial Thromboplastin Time 34.5 sec (22.0-30.0); Prothrombin Time 16.3 sec (10.0-12.5)
[2023-07-04 18:44] LABS: ALT 43 U/L (4-49); African American GFR (CKD) >90 (>60 ml/min/1.73 sqM); Anion Gap 6 mmol/L; Blood Urea Nitrogen 12 mg/dL (9-20); Calcium 8.2 mg/dL (8.4-10.2); Carbon Dioxide 28 mmol/L (22-30); Chloride 105 mmol/L (98-107); Glucose 125 mg/dL (74-99); Non-African American GFR(CKD) 81 (>60 ml/min/1.73 sqM); Sodium 139 mmol/L (137-145); Total Bilirubin 2.3 mg/dL (0.2-1.3)
[2023-07-04 19:00] LABS: Eosinophils # (M) 0.18 k/uL (0-0.7); Hypersegmented Neutrophils Present; Large Platelets Present; Lymphocytes # (M) 0.18 k/uL (1.0-4.8); Monocytes # (M) 0.18 k/uL (0-1.0); Neutrophils # (M) 17.17 k/uL (1.3-7.7); Neutrophils % (M) 97 %; Nucleated Red Blood Cells 0 /100 WBC (0-0); Polychromasia Present; Total Cells Counted 100
[2023-07-04 19:01] LABS: AST 106 U/L (17-59); Albumin 3.4 g/dL (3.5-5.0); Alkaline Phosphatase 159 U/L (38-126); Magnesium 1.4 mg/dL (1.6-2.3); Total Protein 6.2 g/dL (6.3-8.2)
[2023-07-04 21:57] VITALS: BP 139/85; PULSE 60; TEMP 97.4
== END 2023-07-04 21:51 | disposition home or self-care (01) ==
LOC: EC 16:04
DX: E83.42 Hypomagnesemia (principal); I95.1 Orthostatic hypotension; I48.91 Unspecified atrial fibrillation
CPT/HCPCS: 36415; 71046; 80053; 83735; 84443; 84484; 85025; 85610; 85730; 93005; 96360; 99285

== ENCOUNTER → 2023-07-05 | Outpatient (CLI) | payer MEDICARE, OTHER ==
--- NOTE | 2023-07-05 12:26 | FL ---
COMPARISON: NONE DATE OF EXAM: 07/05/2023 HISTORY: Dysphasia A number of thin and thick substances were ingested under the care of the department of speech pathol ogy. There is no evidence of aspiration or penetration. There is no evidence of obstruction. Phary ngeal residuals are noted. DAP are not provided. 1 minute 42 seconds of fluoroscopy. No images. IMPRESSION: 1. No evidence of aspiration or penetration.
== END | disposition home or self-care (01) ==
LOC: RADFLMAIN 10:53
PROVIDERS: ATTEND Family Medicine
DX: R13.10 Dysphagia, unspecified (principal); R47.02 Dysphasia
CPT/HCPCS: 74230

== ENCOUNTER → 2023-07-26 | Outpatient (CLI) | payer MEDICARE, OTHER | END | disposition home or self-care (01) | LOC: LABWHC1 11:59 | PROVIDERS: ATTEND Radiology Radiation Oncology | DX: C61 Malignant neoplasm of prostate (principal); C90.00 Multiple myeloma not having achieved remission | CPT/HCPCS: 36415; 84153 ==

== ENCOUNTER 2023-09-01 17:11 | Emergency (ER) | payer MEDICARE, OTHER ==
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
--- NOTE | 2023-09-01 18:37 | XR ---
EXAMINATION TYPE: XR forearm LT DATE OF EXAM: 09/01/2023 6:28 PM CLINICAL INDICATION:Male, 63 years old with history of left arm injury; [facility] COMPARISON: None TECHNIQUE: XR forearm LT; forearm was examined in AP and lateral projections. FINDINGS: No acute osseous pathology, soft tissue swelling or joint dislocations are seen. No radiop aque foreign bodies. Skin entry not well appreciated on radiography. IMPRESSION: 1. No evidence of acute fracture. 2. No radiopaque foreign bodies.
[2023-09-01] MEDS: DIPH,PERTUS(ACELL)TETVAC-LF 0.5 ML VIAL IM ONE (22:27)
[2023-09-01] MEDS: LIDOCAINE/EPINEPHR/TETRACAINE 5 ML BOTTLE TOPICAL ONE (22:32)
[2023-09-01] MEDS: TRANEXAMIC ACID 1,000 MG/10 ML VIAL IRRIGATION ONE (22:32)
[2023-09-01 22:35] VITALS: BP 130/79; PULSE 56; RESP 17; TEMP 98.5
== END 2023-09-01 22:35 | disposition home or self-care (01) ==
LOC: EC 17:11
DX: S51.812A Laceration without foreign body of left forearm, initial encounter (principal); Z23 Encounter for immunization; W06.XXXA Fall from bed, initial encounter
CPT/HCPCS: 90471; 90715; 99283

== ENCOUNTER 2024-01-24 18:28 | Inpatient (IN) | payer MEDICARE ==
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
[2024-01-24 19:03] LABS: Appearance,Urine Clear (Clear); Bilirubin,Urine Negative (Negative); Blood,Urine Negative (Negative); Color,Urine Colorless; Glucose,Urine (UA) Negative (Negative); Ketones,Urine Negative (Negative); Leukocyte Esterase,Urine Negative (Negative); Nitrite,Urine Negative (Negative); PH, Urine 5.5 (5.0-8.0); Protein,Urine Negative (Negative); Specific Gravity,Urine 1.004 (1.001-1.035); Urobilinogen,Urine <2.0 mg/dL (<2.0)
--- NOTE | 2024-01-24 19:10 | CT ---
EXAMINATION TYPE: CT brain wo con DATE OF EXAM: 01/24/2024 7:02 PM COMPARISON: None available. CLINICAL INDICATION: Male, 63 years old with history of Neuro deficit, acute, stroke suspected, cva TECHNIQUE: Brain: Axial CT images of the brain were obtained with coronal and sagittal reformats created and rev iewed. Contrast used: None. Oral contrast used: None. CT DLP: 1150.9 mGycm, Automated exposure control for dose reduction was used. FINDINGS: Brain: Extra-axial spaces: No abnormal extra-axial fluid collections. Ventricular system: Within normal limits Cerebral parenchyma: No acute intraparenchymal hemorrhage or mass effect. Patchy periventricular and subcortical white matter hypoattenuation likely reflecting chronic microvascular ischemia. Cerebellum: Unremarkable. Mass effect: No evidence of midline shift. Intracranial vasculature: unremarkable Soft tissues: Normal. Calvarium/osseous structures: No depressed skull fracture. Paranasal sinuses and mastoid air cells: Mild scattered paranasal sinus disease. Visualized orbits: Orbital contents are intact. IMPRESSION: No acute intracranial process. [facility], , 01/24/2024 7:07 PM
[2024-01-24 19:12] LABS: Anisocytosis Slight; Basophils # (A) 0.1 k/uL (0-0.2); Basophils % (A) 1 %; Eosinophils # (A) 0.1 k/uL (0-0.7); Eosinophils % (A) 0 %; HCT 39.2 % (39.0-53.0); HGB 12.9 gm/dL (13.0-17.5); INR 1.6 (<1.2); Lymphocytes # (A) 0.7 k/uL (1.0-4.8); Lymphocytes % (A) 4 %; MCH 41.7 pg (25.0-35.0); MCHC 32.9 g/dL (31.0-37.0); MCV 126.9 fL (80.0-100.0); Macrocytosis Marked; Mean Platelet Volume 7.9; Monocytes # (A) 0.5 k/uL (0-1.0); Monocytes % (A) 3 %; Neutrophils # (A) 16.7 k/uL (1.3-7.7); Neutrophils % (A) 92 %; Partial Thromboplastin Time 37.6 sec (22.0-30.0); Platelet Count 430 k/uL (150-450); RBC 3.08 m/uL (4.30-5.90); RDW 17.5 % (11.5-15.5); WBC 18.3 k/uL (3.8-10.6)
[2024-01-24 19:28] LABS: ALT 15 U/L (4-49); AST 33 U/L (17-59); African American GFR (CKD) >90 (>60 ml/min/1.73 sqM); Albumin 3.4 g/dL (3.5-5.0); Alkaline Phosphatase 116 U/L (38-126); Anion Gap 6 mmol/L; Blood Urea Nitrogen 18 mg/dL (9-20); Carbon Dioxide 28 mmol/L (22-30); Chloride 102 mmol/L (98-107); Creatine Kinase 75 U/L (55-170); Glucose 83 mg/dL (74-99); Non-African American GFR(CKD) >90 (>60 ml/min/1.73 sqM); Potassium 3.2 mmol/L (3.5-5.1); Sodium 136 mmol/L (137-145); Total Bilirubin 1.4 mg/dL (0.2-1.3); Total Protein 6.1 g/dL (6.3-8.2)
[2024-01-24] MEDS: SODIUM CHLORIDE 0.9% 1,000 ML IV STA (19:47)
--- NOTE | 2024-01-24 20:20 | XR ---
EXAMINATION TYPE: XR chest 2V DATE OF EXAM: 01/24/2024 8:11 PM COMPARISON: Previous chest radiograph 07/04/2023. CLINICAL INDICATION: Male, 63 years old with history of altered mental status; [facility] TECHNIQUE: XR chest 2V Frontal and lateral views of the chest. FINDINGS: Lungs/Pleura: There is no evidence of pleural effusion, focal consolidation, or pneumothorax. Pulmonary vascularity: Unremarkable. Heart/mediastinum: Cardiomegaly. Musculoskeletal: No acute osseous pathology. Other findings: None IMPRESSION: No acute cardiopulmonary disease/process. [facility], , 01/24/2024 8:17 PM
--- NOTE | 2024-01-24 20:54 | CT ---
EXAMINATION TYPE: CT angio head neck DATE OF EXAM: 01/24/2024 7:33 PM COMPARISON: None available. CLINICAL INDICATION: Male, 63 years old with history of Neuro deficit, acute, stroke suspected; PHH, cva TECHNIQUE: Axially acquired helical CT angiogram of the head and neck was obtained with contrast. Axi al images are supplemented with 3D reconstructions and MIP images which were post-processed at an in dependent workstation. NASCET criteria used. Contrast used:65cc mL of Isovue 370 with IV Contrast, Oral contrast used: None. CT DLP: 407.8 mGycm, Automated exposure control for dose reduction was used. FINDINGS: CTA HEAD: No evidence of acute intracranial hemorrhage, mass effect, or midline shift. The ventricles, sulci, a nd cisterns are unremarkable. Vertebral arteries: The vertebral arteries are patent. Vertebral artery dominance: Codominant Basilar artery: The basilar artery is intact. The basilar artery bifurcation is normal. Internal Carotid arteries: The cervical, petrous, cavernous and supraclinoid segments are without hig h-grade/flow-limiting stenosis. KAY: Patent with no evidence of aneurysm. Left A1 segment appears hypoplastic or absent with the left anterior cerebral artery supplied by the anterior commuting artery. ACOM: Present without evidence of aneurysm. MCA: Patent with no evidence of aneurysm. 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 PCOM: Hypoplastic bilaterally. Dural sinuses: Patent. CTA NECK: Right Carotid System: The common carotid and external carotid arteries are patent. There is less than 50 % stenosis at the carotid bifurcation secondary to calcified/noncalcified plaque. The rest of the internal carotid elba ry is patent. Left Carotid System: The common carotid and external carotid arteries are patent. There is less than 50 % stenosis at the carotid bifurcation secondary to calcified/noncalcified plaque. The rest of the internal carotid elba ry is patent. Vertebral arteries are patent without evidence hemodynamically significant stenosis. There is a three-vessel aortic arch. The origins of the great vessels are patent. No evidence of hemo dynamically significant stenosis. Upper thorax: IMPRESSION: 1. No evidence of dissection of the cervical internal carotid arteries or vertebral arteries. 2. No any evidence of significant stenosis at the carotid bifurcations. 3. No evidence of intracranial high-grade stenosis or intracranial aneurysm. [facility], , 01/24/2024 8:51 PM
[2024-01-24] MEDS ORDERED: MORPHINE SULFATE 4 MG/ML SYRINGE IV PRN (21:16)
[2024-01-24] MEDS ORDERED: ONDANSETRON 4 MG/2 ML VIAL IVP PRN (21:16)
[2024-01-24] MEDS ORDERED: NALOXONE 0.4 MG/ML 1 ML VIAL IV PRN (21:16)
[2024-01-24] MEDS: DEXAMETHASONE SOD PHOSPHATE 10 MG/ML 1 ML VIAL IVP STA (21:37)
[2024-01-24] MEDS: levETIRAcetam IV 500 MG/5 ML VIAL IVP STA (21:42)
[2024-01-24] MEDS: SODIUM CHLORIDE 0.9% 1,000 ML IV SCH (21:47)
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
[2024-01-25] MEDS: POTASSIUM CHLORIDE ER 20 MEQ TAB.ER PO STA (01:36)
[2024-01-25 07:12] LABS: ALT 13 U/L (4-49); AST 29 U/L (17-59); African American GFR (CKD) >90 (>60 ml/min/1.73 sqM); Albumin 3.1 g/dL (3.5-5.0); Alkaline Phosphatase 114 U/L (38-126); Anion Gap 7 mmol/L; Blood Urea Nitrogen 14 mg/dL (9-20); Carbon Dioxide 27 mmol/L (22-30); Chloride 106 mmol/L (98-107); Glucose 98 mg/dL (74-99); Magnesium 1.3 mg/dL (1.6-2.3); Non-African American GFR(CKD) >90 (>60 ml/min/1.73 sqM); Phosphorus 4.2 mg/dL (2.5-4.5); Potassium 4.6 mmol/L (3.5-5.1); Sodium 140 mmol/L (137-145); Total Protein 5.6 g/dL (6.3-8.2)
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
[2024-01-25 07:24] LABS: Anisocytosis Slight; Basophils % (A) 0 %; Eosinophils % (A) 0 %; HCT 39.2 % (39.0-53.0); HGB 12.5 gm/dL (13.0-17.5); Hypochromasia Moderate; Lymphocytes # (A) 0.2 k/uL (1.0-4.8); Lymphocytes % (A) 1 %; MCH 41.1 pg (25.0-35.0); MCHC 31.9 g/dL (31.0-37.0); Macrocytosis Marked; Mean Platelet Volume 8.1; Monocytes # (A) 0.2 k/uL (0-1.0); Monocytes % (A) 1 %; Neutrophils # (A) 16.9 k/uL (1.3-7.7); Neutrophils % (A) 97 %; Platelet Count 447 k/uL (150-450); RBC 3.04 m/uL (4.30-5.90); RDW 17.5 % (11.5-15.5); WBC 17.4 k/uL (3.8-10.6)
[2024-01-25] MEDS: METOPROLOL SUCCINATE (ER) 100 MG TAB.ER.24H PO SCH (08:26)
[2024-01-25] MEDS: TAMSULOSIN 0.4 MG CAP.ER.24H PO SCH (08:26)
[2024-01-25] MEDS: PANTOPRAZOLE 40 MG TABLET PO SCH (08:26)
[2024-01-25] MEDS: FLECAINIDE 50 MG TAB PO SCH (08:26)
[2024-01-25] MEDS: allopurinoL 100 MG TAB PO SCH (08:27)
[2024-01-25] MEDS: lisinopriL 10 MG TAB PO SCH (08:27)
[2024-01-25] MEDS: levETIRAcetam IV 500 MG/5 ML VIAL IVP SCH (08:27)
[2024-01-25] MEDS: ATORVASTATIN 20 MG TAB PO SCH (08:27)
[2024-01-25] MEDS: RIVAROXABAN 15 MG TAB PO SCH (08:30)
--- NOTE | 2024-01-25 12:32 | P.PN ---
Subjective Progress Note Date: 01/25/24 63-year-old male with a PMH of atrial fibrillation (on Xarelto 15 mg p.o. daily), hyperlipidemia, hypertension, nonischemic diastolic CHF, prostate cancer (in remission), and bone marrow cancer (follows with Dr. Byrne, on chemotherapy currently) presents with symptoms of altered mental status. States earlier on 01/23 he decided to take a nap before Thanksgiving dinner. States he does not remember much of what happened after he woke up. No family members at bedside during time of interview. Per my discussion with ER staff, noted the patient had urinated on himself when they found him. also states patient was difficult to arouse. Patient reports her daughter's boyfriend who is an RN thought the condition the patient was in warranted coming to the emergency department. Patient states chronically he has had difficulties with balance, and reported when he got up from his nap today he felt his balance was worse than usual. At time of interview denies fever, chills, headache, nausea, vomiting, diarrhea, constipation, abdominal pain, chest pain, shortness of breath, palpitations, and lower extremity swelling. Imaging: - EKG done in the ER showed heart rate of 54 bpm, sinus bradycardia with first- degree AV block, and QTc of 509. - ER CXR: No acute cardiopulmonary disease/process. - ER CT Head: No acute intracranial process - CTA head and neck done showed no significant stenosis, aneurysm or thrombus in the intracranial circulation 01/25/2024 patient seen and examined at bedside. Patient reported that he feels fine. He denies lightheadedness, palpitations, chest pain, shortness of breath, leg tenderness, tremors, focal weakness, facial asymmetry, changes in vision, changes in speech. No acute events overnight. WBC 17.4 hemoglobin 12.5 MCV 129 platelet count 447,000 sodium 140 potassium 4.6 chloride 106 bicarb 27 BUN 14 creatinine 0.88 glucose 98 calcium 8 phosphorus 4.2 magnesium 1.3 B12 1039 Review of systems: Pertinent positives and negatives as discussed in HPI, a complete review of systems was performed and all other systems are negative. Pertinent imaging and labs reviewed. Physical examination: Vital signs reviewed General: non toxic, no distress, appears frail and slightly malnourished Derm: no unusual rashes/lesions, warm Head: atraumatic, normocephalic, symmetric Eyes: EOMI, anicteric sclera, pupils equal round reactive to light ENT: Nose and ears atraumatic Neck: No cervical lymphadenopathy, trachea midline, supple Mouth: no lip lesion, mucus membranes moist Cardiovascular: S1S2 reg, no murmur Lungs: CTA bilateral, no rhonchi, no rales, no accessory muscle use Abdominal: soft, nontender to palpation, no guarding Ext: muscle strength 5 out of 5 in all 4 extremities grossly, no gross muscle atrophy, no contractures, positive dorsalis pedis pulse bilateral, no edema Neuro: CN II-XI grossly intact exception of some minor left-sided facial droop more prominent periorbitally and periorally, Very mild aphasia and dysarthria noted during exam, no gross focal neuro deficits Psych: Alert and oriented x3, appropriate affect and mood Assessment/Plan: 63-year-old male with a PMH of atrial fibrillation (on Xarelto 15 mg p.o. daily), hyperlipidemia, hypertension, nonischemic diastolic CHF, and prostate cancer presents with symptoms of altered mental status. #Acute metabolic encephalopathy: Seizure versus less likely stroke/TIA -S/p Keppra 1000 mg IVP once in ED, continue Keppra 1000 mg IVP every 12 hours -Fall/Seizure precautions -Neurology consulted. Ordered MRI brain noncontrast scheduled for 01/25 -CT brain shows no acute intracranial process -EEG pending -PT/OT consult -Neurochecks #Leukocytosis: 2/ MPD -Chronically elevated, likely secondary to malignancy, WBC on 06/2023 was 17.7 -WBC 17.4 today and neutrophils 16.9 -Continue to monitor daily CBC #Hypokalemia, resolved -Potassium 4.0 #Macrocytic anemia: -Hemoglobin 12.9 and MCV 126.9 (MCV chronically high) -B12 1039 -folate pending Chronic Conditions: # MPD -Continue home hydroxyurea 500 mg p.o. twice daily, allopurinol 100 mg p.o. daily, and tamsulosin 0.4 mg p.o. daily #Atrial fibrillation, paroxysmal -Continue flecainide acetate 100 mg p.o. twice daily, metoprolol 100 mg p.o. twice daily, and Xarelto 15 mg p.o. daily #Hypertension: -Continue home lisinopril 10 mg p.o. daily tomorrow (01/24) #Hyperlipidemia: -Continue home atorvastatin 20 mg p.o. daily # chronic diastolic CHF: -Continue home medication F: NS 75 cc/h E: Potassium N: Regular diet A: Normally ambulates unassisted at home DVT ppx: Xarelto 15 mg p.o. daily GI ppx: Protonix 40 mg p.o. daily CODE STATUS: Full code Dispo: Pending clinical course Ting Holland MD PGY-1/Professor Of Psychology Dictation was produced using [employer] dictation software. please excuse any grammatical, word or spelling errors. I saw and evaluated the patient during the young and critical portions of this encounter, and discussed the case in detail with the resident author of this note, I agree with the Assessment and Plan, and my changes, if any, are highlighted in blue. Objective - Vital Signs Vital signs: Vital Signs Temp 97.5 F L 01/24/24 18:36 Pulse 52 L 01/25/24 08:28 Resp 18 01/25/24 08:28 BP 127/71 01/25/24 08:28 Pulse Ox 98 01/25/24 08:28 FiO2 Intake & Output 01/24/24 01/25/24 01/25/24 18:59 06:59 18:59 Weight 65.771 kg - Labs CBC & Chem 7: 01/25/24 06:38 01/25/24 06:38 Labs: Abnormal Lab Results - Last 24 Hours (Table) 01/24/24 01/24/24 01/24/24 Range/Units 18:46 18:46 18:46 WBC 18.3 H (3.8-10.6) k/uL RBC 3.08 L (4.30-5.90) m/uL Hgb 12.9 L (13.0-17.5) gm/dL MCV 126.9 H (80.0-100.0) fL MCH 41.7 H (25.0-35.0) pg RDW 17.5 H (11.5-15.5) % Neutrophils # 16.7 H (1.3-7.7) k/uL Lymphocytes # 0.7 L (1.0-4.8) k/uL Macrocytosis Marked A PT 16.0 H (10.0-12.5) sec INR 1.6 H (<1.2) APTT 37.6 H (22.0-30.0) sec Sodium 136 L (137-145) mmol/L Potassium 3.2 L (3.5-5.1) mmol/L Calcium 8.0 L (8.4-10.2) mg/dL Magnesium (1.6-2.3) mg/dL Total Bilirubin 1.4 H (0.2-1.3) mg/dL Total Protein 6.1 L (6.3-8.2) g/dL Albumin 3.4 L (3.5-5.0) g/dL 01/25/24 01/25/24 Range/Units 06:38 06:38 WBC 17.4 H (3.8-10.6) k/uL RBC 3.04 L (4.30-5.90) m/uL Hgb 12.5 L (13.0-17.5) gm/dL MCV 129.0 H (80.0-100.0) fL MCH 41.1 H (25.0-35.0) pg RDW 17.5 H (11.5-15.5) % Neutrophils # 16.9 H (1.3-7.7) k/uL Lymphocytes # 0.2 L (1.0-4.8) k/uL Macrocytosis Marked A PT (10.0-12.5) sec INR (<1.2) APTT (22.0-30.0) sec Sodium (137-145) mmol/L Potassium (3.5-5.1) mmol/L Calcium 8.0 L (8.4-10.2) mg/dL Magnesium 1.3 L (1.6-2.3) mg/dL Total Bilirubin (0.2-1.3) mg/dL Total Protein 5.6 L (6.3-8.2) g/dL Albumin 3.1 L (3.5-5.0) g/dL
[2024-01-25] MEDS ORDERED: Magnesium Replacement Protocol 1 EACH MISC MISCELLANE PRN (13:56)
[2024-01-25] MEDS: MAGNESIUM SULFATE-D5W PMX 1 GM in DEXTROSE/WATER 1 100ML.BAG IVPB SCH (14:06)
[2024-01-25] MEDS: HYDROXYUREA 500 MG CAP PO ONE (15:44)
--- NOTE | 2024-01-25 18:10 | MR ---
EXAMINATION TYPE: MR brain wo con DATE OF EXAM: 01/25/2024 5:49 PM COMPARISON: 01/24/2024. CLINICAL INDICATION: Male, 63 years old with history of episode unresponsiveness with left facial wilder op; PHH, Episode of unresponsiveness, left facial droop. TECHNIQUE: Multi planar, multi sequence imaging was performed through the brain including: T1, T2, In version recovery, Diffusion weighted imaging, and gradient echo imaging. No gadolinium was given. FINDINGS: The house-white junctions, ventricular system, basal cisterns appear unremarkable. Scattered foci of high T2 signal intensity are seen within the periventricular white matter. Midline structures show n o abnormality. Diffusion-weighted imaging shows no evidence of restricted diffusion. The susceptibili ty weighted images do not reveal any evidence for micro-hemorrhage. The bone marrow signal is within normal limits. Paranasal sinuses and mastoid air cells: No significant paranasal sinus disease. Trace high T2 signal in left mastoid air cells. Visualized orbits: Orbital contents are intact. IMPRESSION: 1. No evidence of intracranial mass or acute/subacute infarct. 2. Nonspecific white matter changes, likely secondary to small vessel ischemic disease. 3. Trace left mastoid also effusion. [facility], , 01/25/2024 6:08 PM
--- NOTE | 2024-01-25 21:41 | EEG ---
ELECTROENCEPHALOGRAM REPORT CURRENT MEDICATIONS: 1. Allopurinol. 2. Lipitor. 3. Metoprolol. 4. Xarelto. 5. Flecainide. 6. Flonase. 7. Lisinopril. 8. Keppra. CHARACTERIZATION OF RECORD: This 20-minute electroencephalogram was characterized by background rhythm of roughly 8 to 9 Hertz alpha rhythm with superimposed 14 Hertz beta rhythm. This was not occipitally dominant, but was mildly reactive to eye opening and eye closure. Photic stimulation was performed and resulted in a driving response from 8 to 12 Hertz. There were no sleep features noted on this electroencephalogram. Throughout this electroencephalogram, there was no evidence of focal slowing, focal spikes, sharp waves, or rapid epileptiform discharges. CONCLUSION: This is a normal 20-minute awake electroencephalogram. MMODL / IJN: [id number] /
[2024-01-26 07:00] LABS: Anisocytosis Slight; Basophils # (A) 0.1 k/uL (0-0.2); Basophils % (A) 0 %; Eosinophils # (A) 0.1 k/uL (0-0.7); Eosinophils % (A) 1 %; HCT 37.8 % (39.0-53.0); Hypochromasia Slight; Lymphocytes # (A) 0.6 k/uL (1.0-4.8); Lymphocytes % (A) 4 %; MCHC 31.8 g/dL (31.0-37.0); Mean Platelet Volume 8.7; Monocytes # (A) 0.2 k/uL (0-1.0); Monocytes % (A) 2 %; Neutrophils # (A) 14.6 k/uL (1.3-7.7); Neutrophils % (A) 93 %; Platelet Count 448 k/uL (150-450); RBC 2.93 m/uL (4.30-5.90); RDW 17.4 % (11.5-15.5); WBC 15.6 k/uL (3.8-10.6)
[2024-01-26 07:02] LABS: African American GFR (CKD) 80 (>60 ml/min/1.73 sqM); Anion Gap 3 mmol/L; Blood Urea Nitrogen 23 mg/dL (9-20); Carbon Dioxide 29 mmol/L (22-30); Chloride 101 mmol/L (98-107); Glucose 114 mg/dL (74-99); Macrocytosis Marked; Magnesium 2.3 mg/dL (1.6-2.3); Non-African American GFR(CKD) 70 (>60 ml/min/1.73 sqM); Potassium 3.8 mmol/L (3.5-5.1); Sodium 133 mmol/L (137-145)
[2024-01-26] MEDS: HYDROXYUREA 500 MG CAP PO SCH (08:01)
[2024-01-26 09:08] VITALS: TEMP 97.9
--- NOTE | 2024-01-26 09:29 | P.PN ---
Subjective Progress Note Date: 01/26/24 Principal diagnosis: Altered mental status with possible left-sided facial droop. Mr. 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 The patient was seen and is admitted to [facility] as of January 24, 2024 when he was noted to have an episode of altered mental status with unresponsiveness after dinner. The patient states that at that time, he felt "funny" with some lightheadedness and laid down on the couch. At a later time his family could not arouse him and his son-in-law noticed that his "eyes seemed funny" he may have had urinary incontinence, though the patient cannot recall this. He was seen at [facility] and underwent a CT of the head which was normal as well as CT angiogram which was normal. However, he was noted to have a mild left facial droop by physicians and nursing. This morning his facial droop seems to have improved and the patient is awake and reports no deficits. When seen initially on January 24, he was scheduled for an MRI of the brain as well as electroencephalogram. He was placed on Keppra 1000 mg every 12 hours by house staff. On January 25, the patient reports that he is doing well and he does not have any evidence of focal neurologic deficit at this time. His MRI was obtained January 24 and revealed no evidence of infarction, hemorrhage, or mass. He does have some. Small vessel disease as well as a left mastoid effusion. Electroencephalogram was read as showing no evidence of epileptiform discharges with normal background and active photic stimulation. He feels well and is cleared to go home. Mr. Ocampo is a 63-year-old right-handed male with history of atrial fibrillation as well as blindness. He had an episode of unresponsiveness on the couch last night after feeling lightheaded. He has previous episodes of syncope secondary to atrial fibrillation. This morning is regular and his rhythm is normal however he may be in atrial fibrillation on the monitor. His neurologic exam is nonfocal. There was a slight left facial droop noted on initial exam, however this appears to be gone at this time. 1. I will taper his Keppra with 500 mg twice daily for 2 days followed by 500 mg every morning for 2 days then discontinue. This should be continued into his outpatient regimen. 2. The patient is cleared for discharge by neurology perspective. If he remains in house he will be seen on an intermittent basis. Objective - Vital Signs Vital signs: Vital Signs Temp 97.9 F 01/26/24 08:00 Pulse 57 L 01/26/24 08:00 Resp 18 01/26/24 08:00 BP 113/68 01/26/24 08:00 Pulse Ox 98 01/26/24 08:00 FiO2 Intake & Output 01/25/24 01/26/24 01/26/24 18:59 06:59 18:59 Intake Total 462 550 118 Output Total 125 Balance 462 550 -7 Weight 65.771 kg 68.5 kg Intake: Oral 462 550 118 Output: Urine 125 Other: Voiding Method Toilet Toilet Toilet Urinal Urinal Urinal # Voids 1 # Bowel Movements 1 - Labs CBC & Chem 7: 01/26/24 06:40 01/26/24 06:40 Labs: Abnormal Lab Results - Last 24 Hours (Table) 01/25/24 01/26/24 01/26/24 Range/Units 06:38 06:40 06:40 WBC 15.6 H (3.8-10.6) k/uL RBC 2.93 L (4.30-5.90) m/uL Hgb 12.0 L (13.0-17.5) gm/dL Hct 37.8 L (39.0-53.0) % MCV 129.0 H (80.0-100.0) fL MCH 41.0 H (25.0-35.0) pg RDW 17.4 H (11.5-15.5) % Neutrophils # 14.6 H (1.3-7.7) k/uL Lymphocytes # 0.6 L (1.0-4.8) k/uL Macrocytosis Marked A Sodium 133 L (137-145) mmol/L BUN 23 H (9-20) mg/dL Glucose 114 H (74-99) mg/dL Calcium 8.0 L (8.4-10.2) mg/dL Vitamin B12 1039.0 H (200.0-944.0) pg/mL
[2024-01-26 11:26] VITALS: BP 106/63; PULSE 54; RESP 16
--- NOTE | 2024-01-26 14:07 | P.DS ---
Providers Date of admission: 01/24/24 21:20 Attending physician: Frank Pina MD Consults: 01/24/24 21:16 Consult Physician Routine Consulting Provider: Jasiel Ferreira Consult Reason/Comments: sz Do you want consulting provider notified?: Yes Primary care physician: Yosef Rick MD Hospital Course: Hospital Course: 63-year-old male with a PMH of atrial fibrillation (on Xarelto 15 mg p.o. daily), hyperlipidemia, hypertension, nonischemic diastolic CHF, prostate cancer (in remission), and bone marrow cancer (follows with Dr. Byrne, on chemotherapy currently) presents with symptoms of altered mental status. At time of interview denies fever, chills, headache, nausea, vomiting, diarrhea, constipation, abdominal pain, chest pain, shortness of breath, palpitations, and lower extremity swelling. Imaging in the ED: - EKG done in the ER showed heart rate of 54 bpm, sinus bradycardia with first- degree AV block, and QTc of 509. - ER CXR: No acute cardiopulmonary disease/process. - ER CT Head: No acute intracranial process - CTA head and neck done showed no significant stenosis, aneurysm or thrombus in the intracranial circulation Patient was evaluated for acute metabolic encephalopathy to rule out seizures or stroke. IV Keppra twice daily was given. Neurology consulted and EEG and brain MRI was ordered. EEG and brain MRI were found to be unremarkable with no acute processes. Patient symptoms improved throughout hospital stay and did not have any new complications. Patient is discharged today with Keppra 500 mg to taper for the next 4 days and to follow-up with PCP on outpatient basis regarding macrocytic anemia and MPD. Final Diagnosis: #. Acute metabolic encephalopathy, seizure and stroke/TIA ruled out #. Leukocytosis: 2/2 MPD, stable #. Hypokalemia, resolved #. Macrocytic anemia, stable #. MPD #. Atrial Fibrillation, paroxysmal #. Hypertension #. Hyperlipidemia #. Chronic diastolic CHF Physical examination: Vital signs reviewed General: non toxic, no distress, appears at stated age, normal weight Derm: no unusual rashes/lesions, warm Head: atraumatic, normocephalic, symmetric Eyes: EOMI, anicteric sclera, pupils equal round reactive to light ENT: Nose and ears atraumatic Neck: No cervical lymphadenopathy, trachea midline, supple Mouth: no lip lesion, mucus membranes moist Cardiovascular: S1S2 reg, no murmur, Lungs: CTA bilateral, no rhonchi, no rales, no accessory muscle use Abdominal: soft, nondistended, nontender to palpation, no guarding Ext: muscle strength 5 out of 5 in all 4 extremities grossly, no gross muscle atrophy, no contractures, positive dorsalis pedis pulse bilateral, no edema Neuro: CN II-XI grossly intact, no gross focal neuro deficits Psych: Alert, oriented, appropriate affect and mood I saw and evaluated the patient during the young and critical portions of this encounter, and discussed the case in detail with the resident author of this note, I agree with the Assessment and Plan, and my changes, if any, are highlighted in blue. Patient Condition at Discharge: Serious Plan - Discharge Summary Discharge Rx Participant: No New Discharge Prescriptions: New levETIRAcetam [Keppra] 500 mg PO BID 4 Days #6 tab Continue allopurinoL [Zyloprim] 100 mg PO DAILY Hydroxyurea [Hydrea] 500 mg PO SUTUWEFRSA@0900 Flecainide Acetate [Tambocor] 100 mg PO BID Hydroxyurea 500 mg PO MOTH@899,2099 Metoprolol Succinate (ER) [Toprol XL] 100 mg PO BID Atorvastatin [Lipitor] 20 mg PO DAILY Rivaroxaban [Xarelto] 15 mg PO DAILY Tamsulosin [Flomax] 0.4 mg PO DAILY lisinopriL [Zestril] 10 mg PO DAILY Discharge Medication List allopurinoL [Zyloprim] 100 mg PO DAILY 06/18/16 [History] Hydroxyurea [Hydrea] 500 mg PO SUTUWEFRSA@0900 11/09/17 [History] Atorvastatin [Lipitor] 20 mg PO DAILY 04/17/21 [History] Metoprolol Succinate (ER) [Toprol XL] 100 mg PO BID 04/17/21 [History] Rivaroxaban [Xarelto] 15 mg PO DAILY 01/17/22 [History] Flecainide Acetate [Tambocor] 100 mg PO BID 11/17/22 [History] Hydroxyurea 500 mg PO MOTH@0900,2100 04/02/23 [History] Tamsulosin [Flomax] 0.4 mg PO DAILY 06/25/23 [History] lisinopriL [Zestril] 10 mg PO DAILY 07/04/23 [History] levETIRAcetam [Keppra] 500 mg PO BID 4 Days #6 tab 01/26/24 [Rx] Follow up Appointment(s)/Referral(s): Yosef Rick MD [Primary Care Provider] - 1-2 days (CALL AND MAKE ROMY!) Patient Instructions/Handouts: Altered Mental Status (GEN) Discharge Disposition: HOME SELF-CARE
[2024-01-26] MEDS ORDERED: levETIRAcetam 500 MG TAB PO SCH (21:00)
[2024-01-28] MEDS ORDERED: HYDROXYUREA 500 MG CAP PO SCH (09:00)
[2024-01-29 14:08] LABS: Albumin 2.81 g/dL (3.80-4.90); Gamma Globulin 0.85 g/dL (0.70-1.50)
== END 2024-01-26 13:17 | disposition home or self-care (01) | DRG 71 ==
LOC: EC 18:28 → 3SCARD 21:20
PROVIDERS: ADMIT Internal Medicine; ATTEND Internal Medicine
DX: G93.41 Metabolic encephalopathy (principal); C94.6 Myelodysplastic disease, not elsewhere classified; I42.8 Other cardiomyopathies; I48.92 Unspecified atrial flutter; I50.32 Chronic diastolic (congestive) heart failure; I11.0 Hypertensive heart disease with heart failure; D53.9 Nutritional anemia, unspecified; J44.9 Chronic obstructive pulmonary disease, unspecified; I48.0 Paroxysmal atrial fibrillation; E78.5 Hyperlipidemia, unspecified; H54.8 Legal blindness, as defined in USA; N40.0 Benign prostatic hyperplasia without lower urinary tract symptoms; E87.6 Hypokalemia; I44.30 Unspecified atrioventricular block; R29.810 Facial weakness; M10.9 Gout, unspecified; Z79.01 Long term (current) use of anticoagulants; Z79.899 Other long term (current) drug therapy; Z85.46 Personal history of malignant neoplasm of prostate; Z79.60 Long term (current) use of unspecified immunomodulators and immunosuppressants; Z91.81 History of falling; Z92.3 Personal history of irradiation; Z82.49 Family history of ischemic heart disease and other diseases of the circulatory system; Z82.3 Family history of stroke
CPT/HCPCS: 36415; 70450; 70496; 70498; 70551; 71046; 80048; 80053; 81003; 82550; 82607; 82747; 83735; 84100; 84165; 84443; 84484; 85025; 85610; 85730; 93005; 95816; 96361; 96374; 96375; 99285

== ENCOUNTER 2024-05-02 12:55 | Day surgery (SDC) | payer MEDICARE, OTHER ==
[2024-05-02 13:25] VITALS: TEMP 97.9
[2024-05-02] MEDS: IV FLUID CONTINUATION 1,000 ML IV ONE (13:31)
[2024-05-02] MEDS: LACTATED RINGERS 1,000 ML IV SCH (13:32)
[2024-05-02] MEDS ORDERED: PROPOFOL 10 MG/ML 20 ML VIAL IV ONE (14:44)
[2024-05-02] MEDS ORDERED: LIDOCAINE 1% INJ 10MG/ML (20 ML MDV) ONE (14:44)
--- NOTE | 2024-05-02 14:55 | P.PCN ---
Date of Procedure: 05/02/24 Procedure(s) Performed: BRIEF HISTORY: Patient is a 64-year-old, pleasant, white female scheduled for an upper endoscopy as a part evaluation of intermittent dysphagia to solids for several years duration. He had an upper endoscopy done in May 2023 and was noted to have a distal esophageal Schatzki's ring that was dilated with 18 and 20 mm balloon however he did not notice any improvement in the symptoms.. PROCEDURE PERFORMED: Esophagogastroduodenoscopy with biopsy and dilation. PREOPERATIVE DIAGNOSIS: Intermittent dysphagia to solids. IV sedation per anesthesia. PROCEDURE: After informed consent was obtained, the patient was brought into the endoscopy unit. IV sedation was administered by Anesthesia under continuous monitoring. Initially the Olympus GIF-140 video endoscope was inserted into the mouth. Esophagus intubated without any difficulty. It was gradually advanced into the stomach and duodenum and carefully examined. The bulb and the second part of the duodenum appeared normal. The scope at this time was withdrawn to the stomach, adequately insufflated with air, and upon careful examination, mucosa of the antrum, body, cardia and the fundus appeared normal. The scope was then withdrawn into the esophagus. Small hiatal hernia noted. The GE junction was located at 42 cm from the incisors. The distal esophageal Schatzki's ring identified and this was dilated using 18 to 20 mm TTS balloon for 30 seconds. The rest of the esophagus appeared normal. There were no erosions or ulcerations seen. Multiple biopsies were done from mid and distal esophagus rule out eosinophilic esophagitis. The proximal cervical esophagus was carefully examined and there was no evidence of cricopharyngeal dysfunction or Zenker's diverticulum. Rest of the esophagus appeared normal and the patient tolerated the procedure well. IMPRESSION: 1. Distal esophageal Schatzki's ring status post balloon dilation using 18 to 20 mm TTS balloon. 2. Small hiatal hernia 3. Small cervical esophagus appeared normal with no evidence of Zenker's diverticulum. RECOMMENDATIONS: The findings of this examination were discussed with the patient as well as his family.. He was advised to remain on clear liquids for 2 hours. Follow-up in the office if he has persistent dysphagia. Resume Xarelto tonight.
[2024-05-02 15:19] VITALS: BP 117/69; PULSE 60; RESP 16
== END 2024-05-02 15:35 | disposition home or self-care (01) ==
LOC: ORWHC2ENDO 12:55
PROVIDERS: ATTEND Internal Medicine Gastroenterology
DX: K22.2 Esophageal obstruction (principal); K20.90 Esophagitis, unspecified without bleeding; K22.70 Barrett's esophagus without dysplasia; K44.9 Diaphragmatic hernia without obstruction or gangrene
CPT/HCPCS: 88305; 43239; 43249; J2003; J2704; C1726

== ENCOUNTER → 2024-05-03 | Outpatient (CLI) | payer MEDICARE, OTHER ==
[2024-05-04 08:43] LABS: % Iron Saturation 33.33 (15.00-50.00); ALT 18 U/L (10-49); AST 34 U/L (14-35); Albumin 3.9 g/dL (3.8-4.9); Albumin/Globulin Ratio 1.86 Ratio (1.60-3.17); Alkaline Phosphatase 158 U/L (41-126); Blood Urea Nitrogen 12.4 mg/dL (9.0-27.0); Carbon Dioxide 27.8 mmol/L (21.6-31.8); Chloride 102 mmol/L (96-109); Globulin 2.1 g/dL (1.6-3.3); Glucose 86 mg/dL (70-110); Iron 90 UG/DL (65-175); Potassium 4.4 mmol/L (3.5-5.5); Sodium 139 mmol/L (135-145); Total Bilirubin 0.7 mg/dL (0.3-1.2); Total Iron Binding Capacity 270 UG/DL (228-460)
[2024-05-04 09:25] LABS: Hepatitis A Antibody IgM Nonreactive (Nonreactive); Hepatitis B Core IgM Nonreactive (Nonreactive); Hepatitis B Surface Antigen Nonreactive (Nonreactive); Hepatitis C IgG Antibody Nonreactive (Nonreactive)
[2024-05-04 09:36] LABS: Ceruloplasmin 18.2 mg/dL (20.0-60.0)
== END | disposition home or self-care (01) ==
LOC: LABWHC1 10:54
PROVIDERS: ATTEND Family Medicine
DX: R74.01 Elevation of levels of liver transaminase levels (principal)
CPT/HCPCS: 36415; 80053; 80074; 82306; 82390; 82728; 83036; 83516; 83540; 83550

== ENCOUNTER → 2024-05-05 | Outpatient (CLI) | payer MEDICARE, OTHER ==
--- NOTE | 2024-05-05 08:43 | US ---
EXAMINATION TYPE: US liver DATE OF EXAM: 05/05/2024 COMPARISON: NONE CLINICAL INDICATION: Male, 64 years old with history of R74.01 ELEVATION OF LEVELS OF LIVER TRANSAMIN ASE L; elevated labs. TECHNIQUE: Grayscale and color Doppler imaging of the right upper quadrant was performed. FINDINGS: EXAM MEASUREMENTS: Liver Length: 14.1 cm Gallbladder Wall: .2 cm CBD: .4 cm Right Kidney: 9.4 x 4.3 x 4.0 cm INFORMATION SYSTEMS PLANNER NOTES: Pancreas: Obscured by bowel gas Liver: wnl Gallbladder: No stones seen Evidence for sonographic Teresa's sign: No CBD: wnl Right Kidney: No hydronephrosis or masses seen IMPRESSION: No focal intrahepatic mass or biliary dilatation. [facility], , 05/05/2024 8:41 AM
== END | disposition home or self-care (01) ==
LOC: RADUSWWP 08:07
PROVIDERS: ATTEND Family Medicine
DX: R74.01 Elevation of levels of liver transaminase levels (principal)
CPT/HCPCS: 76705